=== PATIENT | female | born 1995 | race Caucasian/White ===

== ENCOUNTER 2021-03-15 18:45 | Emergency (ER) | payer SELFPAY ==
[2021-03-15 18:47] VITALS: BP 131/85; PULSE 108; RESP 16; TEMP 36.7; O2SAT 98; BMI 39.3
--- NOTE | 2021-03-15 19:41 | US_ITS ---
STUDY: SECOND AND THIRD TRIMESTER OBSTETRICAL ULTRASOUND - LIMITED REASON FOR EXAM: Female, 25 years old. Pelvic pain PRIOR ULTRASOUND: None. TECHNIQUE: Transvaginal TECHNICAL QUALITY: Adequate. FINDINGS: There is a single intrauterine fetus. The fetus is in a cephalic presentation. There is demonstrated cardiac activity with a heart rate of 161 bpm. There is a normal amniotic fluid volume. The largest amniotic fluid pocket measures 4.5 cm. The placenta is anterior in location and is not low lying. There are Grade 0 placental changes. The cervix measures cm in length: 3.1. Right ovary measures 2.6 cm. Left ovary measures 2.6 cm. Vascular flow visualized in both ovaries. BIOMETRY: BPD: 22 mm: 13 weeks, 4 days HC: 85 mm: 13 weeks, 4 days AC: 66 mm: 13 weeks, 3 days FL: 10 mm: 13 weeks, 0 days CI: NA FL/AC: 15 FL/BPD: 48 HC/AC: 1.27 age by current US: 13 weeks, 2 days. LUPIS by current US: 6.6.22. Estimated weight: 71 grams, +/- 11 grams, 22 %. Age by LMP: 13 weeks, 2 days. LUPIS by LMP: 6.6.22. US/Transvaginal w/Preg US IMPRESSION: There is a single live intrauterine with a heart rate of 161 bpm. age by current US: 13 weeks, 2 days. LUPIS by current US: 6.6.22. Estimated weight: 71 grams, +/- 11 grams, 22 %. Electronically Signed: Celso Carey MD at 21:10 EST , Service support ,
--- NOTE | 2021-03-15 19:43 | EDS_ITS ---
HPI HPI - Female History of Present Illness Chief Complaint: Vag Bld, Preg Narrative Narrative: 25-year-old female G2, P1, A0 currently 17 weeks presenting with vaginal bleeding which started a couple of hours ago. She does complain of left sided pelvic pain. Patient states that she recently moved from [place] and arrived here 2 days ago. She has not established with an ASSISTANT PROFESSOR OF GEOGRAPHY. Patient did have a confirmed intrauterine that she reports about a week ago. She had not had any vaginal bleeding since then. She does not know her blood type. She states that her last went to term she had no complications with exception of hyperemesis gravidarum during . She states she has had some nausea and vomiting the last few days. She denies other medical problems. PFSH PFSH Medical History no medical history Home Medications cephalexin 500 mg PO Q12 3 Days #6 capsule 03/15/21 [Rx Last Taken Unknown] promethazine 12.5 mg PO TID PRN #10 tablet 03/15/21 [Rx Last Taken Unknown] Allergy/AdvReac Type Severity Reaction Status Date / Time mushroom Allergy Anaphylaxis Verified 03/15/21 18:47 Surgical History no surgical history Social History Smoking Status: Never smoker ROS ROS ED Constitutional Constitutional ED: Denies fever(s) or subjective Eyes Eyes: Denies blurry vision or change in vision ENT ENT ED: Denies rhinorrhea or sore throat Cardiovascular Cardiovascular: Denies chest pain or palpitations Respiratory/Chest Respiratory/Chest: Denies cough or dyspnea Gastrointestinal Gastrointestinal: Reports nausea and vomiting EXAM Physical Exam Const Vital Signs: 03/15/21 18:47 Temperature 98.1 F Temperature Source Temporal Pulse Rate 108 H Respiratory Rate 16 Blood Pressure 131/85 H Blood Pressure Mean 100 Pulse Ox 98 Oxygen Delivery Method Room Air Positive well nourished General Appearance ED: NAD; Negative for pallor HEENT Reports moist mucous membranes Negative for trauma Eyes PERRL and EOMs intact bilaterally Resp normal respiratory effort and clear to auscultation bilaterally Cardio regular rate and regular rhythm GI normal to inspection, nondistended, normoactive bowel sounds Neuro oriented x3 and CN's II-XII intact bilaterally Sensorium / Orientation: alert Psych mental status grossly normal Skin General Skin Exam: Negative for jaundice or pallor MDM MDM MDM Narrative Medical decision making narrative: Patient presenting with some nausea and vomiting however she is complaining of left adnexal pain. She is currently 13 weeks and [place] here 2 days ago she has no OB locally. She did have some vaginal bleeding today. Patient states that Zofran and Reglan do not work. She was given Phenergan and this did help with her nausea. Blood work was obtained and her CBC and CMP are normal with exception of an alkaline phosphatase of 120 without any previous comparison. hCG quant is 43,193. Blood type AB+. Urinalysis shows 500 leukocyte esterase, 10-25 white blood cells, 1+ bacteria. Culture will be sent patient will be covered for UTI. Transvaginal ultrasound is performed which shows a live intrauterine fetus at about 13 weeks 2 days in which is consistent with the patient's history. heart rate is 161. Since patient does not require RhoGam I will discharge her home to follow-up with Dr. Rene who is actually on-call today. She is given Phenergan for home at her request. She was given Keflex for UTI with first dose in the ED. Impression: 1. Threatened miscarriage 2. Nausea/vomiting 3. UTI Lab Data Attestation: I reviewed the patient's lab results. Labs: Laboratory Results - last 24 hr 03/15/21 03/15/21 03/15/21 20:05 20:05 20:05 WBC 10.8 RBC 4.37 Hgb 13.1 Hct 39.0 MCV 89.2 MCH 30.0 MCHC 33.6 RDW Std Deviation 42.5 RDW Coeff of Irena 13.1 Plt Count 289 MPV 10.0 Immature Gran % (Auto) 0.300 Neut % (Auto) 78.3 H Lymph % (Auto) 16.7 L [place] % (Auto) 4.5 Eos % (Auto) 0.1 Baso % (Auto) 0.1 Absolute Neuts (auto) 8.5 H Absolute Lymphs (auto) 1.81 Nucleated RBC % 0 Sodium 136 Potassium 3.4 L Chloride 102 Carbon Dioxide 23.0 Anion Gap 11 BUN 8 Creatinine 0.78 Estim Creat Clear Calc 91.21 Est GFR (MDRD) Af Amer 114 Est GFR (MDRD) Non-Af 95 BUN/Creatinine Ratio 10.2 Glucose 88 Calcium 9.6 Total Bilirubin 0.50 AST 28 ALT 52 Alkaline Phosphatase 120 H Total Protein 8.2 Albumin 3.3 Globulin 4.9 H Albumin/Globulin Ratio 0.7 L HCG, Quant 62626 H Urine Color Urine Clarity Urine pH Ur Specific [place] Urine Protein Urine Glucose (UA) Urine Ketones Urine Occult Blood Urine Nitrite Urine Bilirubin Urine Urobilinogen Ur Leukocyte Esterase Urine RBC Urine WBC Ur Squamous Epith Cells Urine Bacteria Urine Mucus Blood Type 03/15/21 03/15/21 03/15/21 20:05 20:05 20:49 WBC RBC Hgb Hct MCV MCH MCHC RDW Std Deviation RDW Coeff of Irena Plt Count MPV Immature Gran % (Auto) Neut % (Auto) Lymph % (Auto) [place] % (Auto) Eos % (Auto) Baso % (Auto) Absolute Neuts (auto) Absolute Lymphs (auto) Nucleated RBC % Sodium Potassium Chloride Carbon Dioxide Anion Gap BUN Creatinine Estim Creat Clear Calc Est GFR (MDRD) Af Amer Est GFR (MDRD) Non-Af BUN/Creatinine Ratio Glucose Calcium Total Bilirubin AST ALT Alkaline Phosphatase Total Protein Albumin Globulin Albumin/Globulin Ratio HCG, Quant Urine Color Yellow Urine Clarity Sl. Cloudy Urine pH 6.0 Ur Specific [place] 1.025 Urine Protein 15 H Urine Glucose (UA) Normal Urine Ketones 150 A* Urine Occult Blood Negative Urine Nitrite Negative Urine Bilirubin 1 H Urine Urobilinogen 1 H Ur Leukocyte Esterase 500 H Urine RBC 0 SEEN Urine WBC 10-25 SEEN Ur Squamous Epith Cells 0-5 SEEN Urine Bacteria 1+ Urine Mucus 0 SEEN Blood Type TNP AB POSITIVE Radiography Diagnostic Testing: Clinical Impression(s) from Imaging Studies Obstetrics Ultrasound 03/15/21 19:41 IMPRESSION: There is a single live intrauterine with a heart rate of 161 bpm. age by current US: 13 weeks, 2 days. LUPIS by current US: 6.6.22. Estimated weight: 71 grams, +/- 11 grams, 22 %. Electronically Signed: Celso Carey MD at 21:10 EST , Service support , Discharge Plan Triage Chief Complaint: Vag Bld, Preg ED Provider: Olayinka Finnegan Dx/Rx/DC Orders Instructions: ED Possible Miscarriage ..., ED CYSTITIS Female Adult Prescriptions: New promethazine 25 mg tablet 12.5 mg PO TID PRN (Reason: nausea and vomiting) Qty: 10 RF: 0 cephalexin 500 mg capsule 500 mg PO Q12 3 Days Qty: 6 RF: 0 Primary Care Provider: Care Physician,No Primary Referrals: Juno Espitia MD [STAFF PHYSICIAN] - As soon as possible Care Physician,No Primary [Primary Care Provider] - Disposition Disposition: Home, Self Care
[2021-03-15] MEDS: proMETHazine 25 MG/ML Syringe 12.5 MG IM (20:11)
[2021-03-15 20:15] LABS: Absolute Lymphocyte Count 1.81 X10^3/uL (0.83-4.51); Absolute Neutrophil Count 8.5 X10^3/uL (2.0-7.7); Basophil# 0.01 X10^3/uL; Basophil% 0.1 % (0-1); Eosinophil# 0.01 X10^3/uL; Eosinophils% 0.1 % (0-5); Hemoglobin 13.1 g/dL (12.0-15.0); Lymphocyte # 1.81 X10^3/ul (0.83-4.51); Lymphocyte % 16.7 % (19-41); Mean Corp Hgb Conc 33.6 g/dL (32-36); Mean Corpuscular Volume 89.2 fL (81-99); Monocyte# 0.49 X10^3/uL; Monocyte% 4.5 % (0-10); NRBC Flagged by Analyzer 0 % (0-5); Neutrophil # 8.46 X10^3/uL (2.7-7.7); Neutrophil % 78.3 % (47-70); Platelet Count 289 K/mm3 (150-450); RBC Distribution Width CV 13.1 % (11.6-14.6); RBC Distribution Width SD 42.5 fl (35.1-43.9); Red Blood Count 4.37 M/mm3 (4.2-5.4); White Blood Count 10.8 K/mm3 (4.4-11.0)
[2021-03-15 20:32] LABS: ALB/GLOB Ratio 0.7 RATIO (0.9-2.4); AST(SGOT) 28 U/L (15-37); Alanine Aminotransfer ALT/SGPT 52 U/L (13-56); Albumin, Serum 3.3 g/dL (3.2-5.0); Alkaline Phosphatase 120 U/L (45-117); Anion Gap 11 (5-15); BUN 8 mg/dL (7-18); BUN/Creat Ratio 10.2 RATIO (10-20); Calcium,Total 9.6 mg/dL (8.5-10.1); Chloride 102 mmol/L (98-107); Creatinine, Serum 0.78 mg/dL (0.55-1.02); EST Glomerular Filtration Rate 95 mL/min (>60); Est Glom Filt Rate - Afr Amer 114 mL/min (>60); Estimated Creatinine Clearance 91.21 ml/min; Globulin 4.9 g/dL (2.2-4.2); Glucose 88 mg/dL (74-106); Potassium 3.4 mmol/L (3.5-5.1); Protein, Total 8.2 g/dL (6.4-8.2); Sodium Level 136 mmol/L (136-145)
[2021-03-15 20:47] LABS: hCG Titer Quant., Serum 43193 mIU/mL (1-3)
[2021-03-15 20:58] LABS: Color, Urine Yellow (Yellow); Glucose, Dipstick Normal (Normal); Leukocyte Esterase-Dipstick 500 /ul (Negative); Mucous, Urine 0 SEEN /hpf (<or=2+); Nitrite-Dipstick Negative (Negative); Occult Blood-Urine Negative /ul (Negative); Protein-Dipstick 15 mg/dl (Negative); Specific Gravity, Urine 1.025 (1.002-1.030); Urine Clarity Sl. Cloudy (Clear); Urine Urobilinogen 1 mg/dl (Normal)
[2021-03-15 20:59] LABS: Urine Bilirubin Dipstick 1 mg/dL (Negative)
[2021-03-15 21:00] LABS: Ketone-Dipstick 150 mg/dl (Negative)
[2021-03-15 21:03] LABS: Squamous Epithelial Cells - UA 0-5 SEEN /hpf (5-10); White Blood Cells 10-25 SEEN /hpf (0-5)
[2021-03-15 21:04] LABS: Red Blood Cells-Urine 0 SEEN /hpf (0-5)
[2021-03-15 21:05] LABS: Bacteria 1+ /hpf (None Seen)
[2021-03-15 22:06] VITALS: BP 117/67; PULSE 70; RESP 16; O2SAT 100
== END 2021-03-15 22:06 | disposition home or self-care (01) ==
PROVIDERS: Emergency Provider Student in an Organized Health Care Education/Training Program
DX: O20.0 Threatened abortion (principal); O21.9 Vomiting of pregnancy, unspecified; O23.42 Unspecified infection of urinary tract in pregnancy, second trimester; Z3A.17 17 weeks gestation of pregnancy
CPT/HCPCS: 76817; 80053; 81001; 84702; 85025; 86900; 86901; 96372; 99283; A4216

== ENCOUNTER 2021-03-17 14:24 | Emergency (ER) | payer SELFPAY ==
[2021-03-17 14:25] VITALS: BP 147/95; PULSE 94; RESP 18; TEMP 36.4; O2SAT 100; BMI 38.9
--- NOTE | 2021-03-17 15:33 | CM.ED ---
Addendum entered by Judith Morales 03/17/21 15:56: Patient reports that she is from [place]. Patient was provided with self pay packet. Patient was provided with 2020 List of Healthcare Provider Directory and encouraged her to apply for [place] medicaid. Patient verbalized understanding. Judith AGUILAR Original Note: ARTIE Note Referral Source: Case Find Referral Reason: No PCP and no insurance SW met with patient. She reports she moved to the area a few days ago
--- NOTE | 2021-03-17 16:13 | US_ITS ---
STUDY: SECOND AND THIRD TRIMESTER OBSTETRICAL ULTRASOUND - LIMITED REASON FOR EXAM: Female, 25 years old. left pelvic pain PRIOR ULTRASOUND: .05.05 TECHNIQUE: Transabdominal TECHNICAL QUALITY: Adequate. FINDINGS: There is a single intrauterine fetus. The fetus is in a breech presentation. There is demonstrated cardiac activity with a heart rate of 158 bpm. There is a normal amniotic fluid volume. This is subjective before. The placenta is anterior and low lying but not previa in location. There are Grade 0 placental changes. The cervix measures cm in length: 3.3. Ovaries are visualized and within normal limits. Left corpus luteum cyst visualized measuring 19 x 17 mm. BIOMETRY: BPD: 23 mm: 13 weeks, 5 days HC: 89 mm: 13 weeks, 6 days AC: 71 mm: 13 weeks, 4 days FL: 10 mm: 13 weeks, 0 days CI: 76 FL/AC: 14 FL/BPD: 44 HC/AC: 1.25 age by current US: 13 weeks, 3 days. LUPIS by current US: 6.7.22. Estimated weight: 74 grams, +/- 11 grams, 18 %. age by prior US: 13 weeks, 4 days. LUPIS by prior US: 6.6.22. Age by LMP: 13 weeks, 4 days. LUPIS by LMP: 6.6.22. US/Init OB < 14Wks US IMPRESSION: There is a single live intrauterine with a heart rate of 158 bpm. The placenta is anterior and low lying but not previa in location. age by current US: 13 weeks, 3 days. LUPIS by current US: 6.7.22. Estimated weight: 74 grams, +/- 11 grams, 18 %. Electronically Signed: Celso Carey MD at 20:55 EST , Service support ,
--- NOTE | 2021-03-17 16:19 | EDS_ITS ---
HPI HPI - GI History of Present Illness Chief Complaint: Nausea/Vomiting Narrative Narrative: 25-year-old female G2, who is currently in her 13th week of presenting for left pelvic pain. Patient was seen in the ER 2 days ago and had an ultrasound done transvaginally. Which showed a normal fetus at 13 weeks. Patient recently moved from [place] and does not have an chef broiler or fry. 2 days ago she presented with vaginal bleeding which is now resolved. She does not have any dysuria or hematuria. She has no constipation or diarrhea. She states she had a fever yesterday of 101 ?F which spontaneously resolved. She has Phenergan at home which has helped her with her nausea. She has not yet called for follow-up with Dr. Espitia who she was referred to. She states that she experienced a lot of nausea and vomiting with her first pregnan cy. She states that Zofran and Reglan did not help her with her vomiting. PFSH PFSH Medical History no medical history Home Medications cephalexin 500 mg PO Q12 3 Days #6 capsule 03/15/21 [Rx Last Taken Unknown] promethazine 12.5 mg PO TID PRN #10 tablet 03/15/21 [Rx Last Taken Unknown] ondansetron HCl [Zofran] 4 mg PO Q8H PRN #14 tab 03/17/21 [Rx Last Taken Unknown] Allergy/AdvReac Type Severity Reaction Status Date / Time mushroom Allergy Anaphylaxis Verified 03/17/21 14:27 Surgical History no surgical history Social History Smoking Status: Never smoker ROS ROS ED Constitutional Constitutional ED: Reports fever(s); Denies chills ENT ENT ED: Denies rhinorrhea or sore throat Cardiovascular Cardiovascular: Denies chest pain or palpitations Respiratory/Chest Respiratory/Chest: Denies cough or dyspnea Gastrointestinal Gastrointestinal: Reports abdominal pain, nausea and vomiting; Denies constipation or diarrhea Genitourinary Genitourinary ED: Denies dysuria or hematuria Musculoskeletal Musculoskeletal: Denies arthralgias or myalgias Integumentary Denies rash Neurologic Neurologic: Denies headache(s) or paresthesias EXAM Physical Exam Const Vital Signs: 03/17/21 14:25 03/17/21 16:37 03/17/21 18:16 Temperature 97.5 F L Temperature Source Temporal Pulse Rate 94 96 96 Respiratory Rate 18 16 16 Blood Pressure 147/95 H 136/80 H 126/91 H Blood Pressure Mean 112 98 102 Pulse Ox 100 98 99 Oxygen Delivery Method Room Air Room Air Room Air 03/17/21 20:16 Temperature Temperature Source Pulse Rate 90 Respiratory Rate 18 Blood Pressure 124/61 H Blood Pressure Mean Pulse Ox 96 Oxygen Delivery Method Positive well nourished General Appearance ED: NAD; Negative for pallor HEENT Reports moist mucous membranes normocephalic and atraumatic Eyes PERRL and EOMs intact bilaterally Cardio regular rate and regular rhythm GI GI Narrative: Tenderness palpation left lower abdomen/pelvis. Abdomen is soft. Gravid. Back/Spine no CVA tenderness Neuro CN's II-XII intact bilaterally Sensorium / Orientation: alert, oriented to person, oriented to place and oriented to time Psych mental status grossly normal and thought process normal Skin General Skin Exam: Negative for jaundice or pallor MDM MDM MDM Narrative Medical decision making narrative: Patient given Tylenol for pain because she is . CBC shows no leukocytosis. CMP shows a slight increase in alkaline phosphatase and ALT. Her hCG is actually gone down to 42,196 from 42,193. Urinalysis does not show bacteria although she has 500 leukocyte esterase. I recently treated her with Keflex p.o. twice daily for bacteria in the urine. Transvaginal ultrasound does shows a live intrauterine with gestational age of 13 weeks 3 days. heart rate is 158. Patient given a prescription for Zofran for home at her request. She already has Phenergan. Again she is encouraged to follow-up with an chef broiler or fry. Patient is discharged home in stable condition. Impression: 1. Hyperemesis gravidarum 2. Abdominal pain Lab Data Labs: Laboratory Results - last 24 hr 03/17/21 03/17/21 03/17/21 15:24 15:24 15:24 WBC 8.6 RBC 4.33 Hgb 13.0 Hct 39.2 MCV 90.5 MCH 30.0 MCHC 33.2 RDW Std Deviation 43.2 RDW Coeff of Irena 13.1 Plt Count 282 MPV 10.8 Immature Gran % (Auto) 0.300 Neut % (Auto) 80.2 H Lymph % (Auto) 14.2 L [place] % (Auto) 4.9 Eos % (Auto) 0.2 Baso % (Auto) 0.2 Absolute Neuts (auto) 6.9 Absolute Lymphs (auto) 1.22 Nucleated RBC % 0 Sodium 135 L Potassium 3.6 Chloride 103 Carbon Dioxide 26.0 Anion Gap 6 BUN 9 Creatinine 0.82 Estim Creat Clear Calc 86.76 Est GFR (MDRD) Af Amer 108 Est GFR (MDRD) Non-Af 89 BUN/Creatinine Ratio 10.9 Glucose 94 Calcium 9.4 Total Bilirubin 0.40 AST 33 ALT 60 H Alkaline Phosphatase 119 H Total Protein 8.1 Albumin 3.2 Globulin 4.9 H Albumin/Globulin Ratio 0.7 L HCG, Quant 22730 H Urine Color Urine Clarity Urine pH Ur Specific [place] Urine Protein Urine Glucose (UA) Urine Ketones Urine Occult Blood Urine Nitrite Urine Bilirubin Urine Urobilinogen Ur Leukocyte Esterase Urine RBC Urine WBC Ur Squamous Epith Cells Urine Bacteria Urine Mucus 03/17/21 18:17 WBC RBC Hgb Hct MCV MCH MCHC RDW Std Deviation RDW Coeff of Irena Plt Count MPV Immature Gran % (Auto) Neut % (Auto) Lymph % (Auto) [place] % (Auto) Eos % (Auto) Baso % (Auto) Absolute Neuts (auto) Absolute Lymphs (auto) Nucleated RBC % Sodium Potassium Chloride Carbon Dioxide Anion Gap BUN Creatinine Estim Creat Clear Calc Est GFR (MDRD) Af Amer Est GFR (MDRD) Non-Af BUN/Creatinine Ratio Glucose Calcium Total Bilirubin AST ALT Alkaline Phosphatase Total Protein Albumin Globulin Albumin/Globulin Ratio HCG, Quant Urine Color Yellow Urine Clarity Sl. Cloudy Urine pH 6.0 Ur Specific [place] 1.025 Urine Protein 30 H Urine Glucose (UA) Normal Urine Ketones 150 A* Urine Occult Blood 10 H Urine Nitrite Negative Urine Bilirubin Negative Urine Urobilinogen 1 H Ur Leukocyte Esterase 500 H Urine RBC 0 SEEN Urine WBC 25-50 SEEN Ur Squamous Epith Cells 5-10 SEEN Urine Bacteria 0 SEEN Urine Mucus 3+ Radiography Diagnostic Testing: Clinical Impression(s) from Imaging Studies Obstetrics Ultrasound 03/17/21 16:13 IMPRESSION: There is a single live intrauterine with a heart rate of 158 bpm. The placenta is anterior and low lying but not previa in location. age by current US: 13 weeks, 3 days. LUPIS by current US: 6.7.22. Estimated weight: 74 grams, +/- 11 grams, 18 %. Electronically Signed: Celso Carey MD at 20:55 EST , Service support , Discharge Plan Triage Chief Complaint: Nausea/Vomiting ED Provider: Olayinka Finnegan Dx/Rx/DC Orders Instructions: ED Hyperemesis Gravidarum Prescriptions: New ondansetron HCl [Zofran] 4 mg tablet 4 mg PO Q8H PRN (Reason: nausea and vomiting) Qty: 14 RF: 0 No Action promethazine 25 mg tablet 12.5 mg PO TID PRN (Reason: nausea and vomiting) Qty: 10 RF: 0 cephalexin 500 mg capsule 500 mg PO Q12 3 Days Qty: 6 RF: 0 Primary Care Provider: Care Physician,No Primary Referrals: Juno Espitia MD [STAFF PHYSICIAN] - As soon as possible Care Physician,No Primary [Primary Care Provider] - Disposition Disposition: Home, Self Care Discharge Date/Time: 03/17/21 20:16
[2021-03-17] MEDS: proMETHazine 25 MG/ML Syringe 12.5 MG IM (16:28)
[2021-03-17] MEDS: 0.9% Normal Saline 1,000 ML 1000 ML IV (16:28)
[2021-03-17 16:37] VITALS: BP 136/80; PULSE 96; RESP 16; O2SAT 98
[2021-03-17 16:44] LABS: Absolute Lymphocyte Count 1.22 X10^3/uL (0.83-4.51); Absolute Neutrophil Count 6.9 X10^3/uL (2.0-7.7); Basophil# 0.02 X10^3/uL; Basophil% 0.2 % (0-1); Eosinophil# 0.02 X10^3/uL; Eosinophils% 0.2 % (0-5); Hematocrit 39.2 % (37-47); Lymphocyte # 1.22 X10^3/ul (0.83-4.51); Lymphocyte % 14.2 % (19-41); Mean Corp Hgb Conc 33.2 g/dL (32-36); Mean Corpuscular Volume 90.5 fL (81-99); Mean Platelet Vol. 10.8 fl (6.2-12.0); Monocyte# 0.42 X10^3/uL; Monocyte% 4.9 % (0-10); NRBC Flagged by Analyzer 0 % (0-5); Neutrophil # 6.88 X10^3/uL (2.7-7.7); Neutrophil % 80.2 % (47-70); Platelet Count 282 K/mm3 (150-450); RBC Distribution Width CV 13.1 % (11.6-14.6); RBC Distribution Width SD 43.2 fl (35.1-43.9); Red Blood Count 4.33 M/mm3 (4.2-5.4); White Blood Count 8.6 K/mm3 (4.4-11.0)
[2021-03-17 17:02] LABS: ALB/GLOB Ratio 0.7 RATIO (0.9-2.4); AST(SGOT) 33 U/L (15-37); Alanine Aminotransfer ALT/SGPT 60 U/L (13-56); Albumin, Serum 3.2 g/dL (3.2-5.0); Alkaline Phosphatase 119 U/L (45-117); Anion Gap 6 (5-15); BUN 9 mg/dL (7-18); BUN/Creat Ratio 10.9 RATIO (10-20); Calcium,Total 9.4 mg/dL (8.5-10.1); Chloride 103 mmol/L (98-107); Creatinine, Serum 0.82 mg/dL (0.55-1.02); EST Glomerular Filtration Rate 89 mL/min (>60); Est Glom Filt Rate - Afr Amer 108 mL/min (>60); Estimated Creatinine Clearance 86.76 ml/min; Globulin 4.9 g/dL (2.2-4.2); Glucose 94 mg/dL (74-106); Potassium 3.6 mmol/L (3.5-5.1); Protein, Total 8.1 g/dL (6.4-8.2); Sodium Level 135 mmol/L (136-145)
[2021-03-17] MEDS: Ondansetron 4 MG/2 ML Vial IV (17:15)
--- NOTE | 2021-03-17 17:19 | ED.RN ---
PT CONTINUES VOMITING AFTER PHENERGAN DOSE. DR. GUAN INFORMED.
[2021-03-17 17:37] LABS: hCG Titer Quant., Serum 42186 mIU/mL (1-3)
[2021-03-17 18:16] VITALS: BP 126/91; PULSE 96; RESP 16; O2SAT 99
[2021-03-17 18:23] LABS: Bacteria 0 SEEN /hpf (None Seen); Red Blood Cells-Urine 0 SEEN /hpf (0-5)
[2021-03-17 18:24] LABS: Color, Urine Yellow (Yellow); Glucose, Dipstick Normal (Normal); Leukocyte Esterase-Dipstick 500 /ul (Negative); Nitrite-Dipstick Negative (Negative); Occult Blood-Urine 10 /ul (Negative); Protein-Dipstick 30 mg/dl (Negative); Specific Gravity, Urine 1.025 (1.002-1.030); Urine Bilirubin Dipstick Negative (Negative); Urine Clarity Sl. Cloudy (Clear); Urine Urobilinogen 1 mg/dl (Normal)
[2021-03-17 18:27] LABS: Ketone-Dipstick 150 mg/dl (Negative)
[2021-03-17 18:29] LABS: White Blood Cells 25-50 SEEN /hpf (0-5)
[2021-03-17 18:30] LABS: Mucous, Urine 3+ /hpf (<or=2+); Squamous Epithelial Cells - UA 5-10 SEEN /hpf (5-10)
--- NOTE | 2021-03-17 18:33 | ED.RN ---
PT C/O BACK PAIN, DR. GUAN AWARE. PT UNABLE TO TOLERATE ORAL MEDS AT THIS TIME. CONTINUED N/V. PT GIVEN WARM BLANKETS, PLACED IN POSITION OF COMFORT AND LIGHTING WAS ADJUSTED PER PT REQUEST.
[2021-03-17 20:16] VITALS: BP 124/61; PULSE 90; RESP 18; O2SAT 96
== END 2021-03-17 20:16 | disposition home or self-care (01) ==
PROVIDERS: Emergency Provider Student in an Organized Health Care Education/Training Program
DX: O21.0 Mild hyperemesis gravidarum (principal); O26.891 Other specified pregnancy related conditions, first trimester; Z3A.13 13 weeks gestation of pregnancy
CPT/HCPCS: 76801; 80053; 81001; 84702; 85025; 96372; 96374; 99282; J7030; A4216; J2405

== ENCOUNTER 2021-03-17 23:35 | Emergency (ER) | payer SELFPAY ==
[2021-03-17 23:43] VITALS: BP 124/82; PULSE 107; RESP 16; TEMP 36.3; O2SAT 99; BMI 38.9
[2021-03-17] MEDS: Ondansetron ODT 4 MG Tablet PO (23:53)
--- NOTE | 2021-03-18 00:11 | ED.RN ---
PT WAS GIVEN ODT ZOFRAN VERBALLY ORDERED BY [facility]. WENT OVER PREVIOUS DC INSTRUCTIONS WITH PT FROM A FEW HRS AGO. PTS S.O. STATED THEY WERE GOING HOIME AND GOING TO TRY TO GET IN WITH OB IN THE MORNING.
== END 2021-03-18 00:11 | disposition left against medical advice (07) ==
LOC: ED 03-18 00:13
DX: Z53.21 Procedure and treatment not carried out due to patient leaving prior to being seen by health care provider (principal)
CPT/HCPCS: 99282

== ENCOUNTER → 2021-03-20 13:14 | Outpatient (CLI) | payer SELFPAY ==
[2021-03-20 13:19] VITALS: BP 122/69; PULSE 84; RESP 18; TEMP 35.8; O2SAT 100
[2021-03-20] MEDS: 0.9% NaCl Peripheral Flush Adult/Peds IV (13:51)
[2021-03-20] MEDS: Ondansetron 4 MG/2 ML Vial IV (13:51)
[2021-03-20] MEDS: proMETHazine 25 MG/ML Syringe 12.5 MG IM (13:53)
[2021-03-20] MEDS: Dextrose 5%-Lactated Ringers 1,000 ML 999 ML IV (13:57)
[2021-03-20 15:09] VITALS: PULSE 106; RESP 18; TEMP 36; O2SAT 100
== END ==
PROVIDERS: Referring Provider Obstetrics & Gynecology; Visit Provider Obstetrics & Gynecology
DX: E86.0 Dehydration (principal)
CPT/HCPCS: 96361; 96374; 96372; A4216; J2405

== ENCOUNTER 2021-03-21 16:51 | Observation (INO) | payer SELFPAY ==
[2021-03-21] VITALS (7 sets, daily range): BP systolic 119–183; BP diastolic 59–85; PULSE 73–146; TEMP 37–37.2; O2SAT 96–98; BMI 38.9
--- NOTE | 2021-03-21 16:51 | HP.PCM_ITS ---
History and Physical Date of Admission: 03/21/21 Vital Signs 03/21/21 16:04 Height 5 ft 3 in Weight: 220 lb BMI 38.9 BP 122/84 H Intake Visit Reasons: DANIEL OB Chief Complaint: OB transfer 14w Eating Disorder Psychologist Required: No Is patient in pain?: Yes Allergies mushroom Allergy (Verified 03/17/21 14:27) Anaphylaxis Last Menstral Period: 12/12/20 : No PFSH PFSH Family History (Updated 03/21/21 @ 16:12 by Mone Hawkins) Mother Cancer Grandmother Cancer Social History (Updated 03/21/21 @ 16:12 by Mone Hawkins) Smoking Status: Never smoker alcohol intake: never substance use type: does not use caffeine: No what type of physical activity do you participate in: none seatbelt use: always do you feel safe at home: Yes additional social history: Dylon Pregancy History 2 Elective abortions Hx Para 1 Spontaneous abortions Hx # Term Pregnancies Ectopic pregnancies Hx # Pregnancies Multiple births # of living children Past Pregnancies Del. Date Name GA/Weeks Outcome Route Bth Weight Gen Labor Lgth Anesthesia Del [facility] Provider FOB 02/28/17 Hanna 39 live - full term Delivery Date: 02/28/17 hyperemesis gravidarum Janay Suh HPI DANIEL OB Details: BILLY WILSON is a 25 year old who presents for transfer of care OB visit. Patient has moved here from [place] and is establishing care. She did have a new OB visit and her other provider with baseline labs and confirmatory ultrasound consistent with LMP. Patient has a history of hyperemesis gravidarum that was managed last with a Zofran pump. She states that oral medications have not worked this so far and she is really been struggling. She received IV fluids as an outpatient yesterday but is still having persistent emesis and only urinating once daily. She has abdominal cramping due to retching so much and had some spotting a few days ago but nothing acutely. Complains of some shortness of breath that has been present since the onset of and states it gets worse with vomiting. She has decreased urine output but no dysuria. She denies any fevers OB Visit LUPIS Calculator Estimated Delivery Date Method Current WG Current Estimate 09/18/21 LMP (Certain) 14w 1d Expected Delivery Route/Plan Labor Preferences- CB/BF classes: [] labor support person: [] labor intervention preferences: [] pain management options preferred: [] cut cord/dad catch: [] : [] PP control planned: [] discussed possible routes of delivery and associated risks: [] special requests: [] Specific Issue/Plans Covid status: [] Flu vaccine: [] Tdap vaccine: [] Rhogam: [] LARC form signed: [] Problem list reviewed and updated with the most current plan of care details and appropriate orders placed. Relevant counseling for the gestational age provided. Continue routine care and follow up unless otherwise noted in visit notes/problem list details Initial Weight: Not Recorded Date EGA Weight BP Urine Prot Glucose FHR FuHt Pres Dilation Effaced St Visit Note 03/21/21 14w 1d 220 lb 122/84 Direct admit to labor and delivery for IV fluids plan [facility] consult ACOG First Trimester First Trimester: Discussed Diagnostics Diagnostics Diagnostics: Blood Type AB POSITIVE Hgb 13.0 g/dL (12.0-15.0) Hct 39.2 % (37-47) Details: HIV: Urine Culture: Sequential Screen: NIPT Screen: ROS Const Denies excessive sweating, Denies night sweats and Denies weight gain ENT Reports system reviewed and no additional complaints, except as documented Card Denies chest pain and Denies dyspnea Resp Denies cough and Denies dyspnea GI Reports as per HPI Denies nipple discharge, Denies urinary frequency, Denies urinary incontinence, Denies urinary hesitancy, Denies urinary urgency, Denies vaginal discharge, Den ies vaginal dryness, Denies vaginal odor and Denies vaginal pruritus Musc Denies arthralgias and Denies back pain Skin/Breast Denies alopecia, Denies change in hair, Denies dry skin, Denies breast mass, Denies breast pain, Denies breast skin changes and Denies nipple discharge Neuro Yes system reviewed and no additional complaints, except as documented Psych Reports system reviewed and no additional complaints, except as documented Endo Denies cold intolerance, Denies excessive sweating, Denies heat intolerance and Denies polydipsia [place]/Lymph Denies easy bleeding, Denies easy bruising and Denies lymphadenopathy Exam Const General: cooperative, well developed, ill appearing and lethargic Orientation: alert HENMT Head: normal to inspection and normocephalic Ears: hearing grossly normal bilaterally and external ears normal Nose: external nose normal and nares normal Face and sinus: normal facial exam Neck Neck: normal visual inspection and no lymphadenopathy Thyroid: thyroid normal Chest Chest palpation & inspection: normal inspection of the chest Resp Effort & Inspection: normal respiratory effort Auscultation: clear to auscultation bilaterally Cardio Rate: regular rate Rhythm: regular rhythm Heart Sounds: S1 normal and S2 normal GI Inspection: normal to inspection and non-distended Palpation: soft and no hepatosplenomegaly Musc Other: gross motor intact no deficits, full bilateral strength Skin General: no rashes or lesions noted Neuro General: patient alert, patient awake, moves all extremities and no focal motor deficits Motor: muscle tone normal throughout Extrem General: normal to inspection and no pedal edema Psych Appearance: grossly normal Mental Status: mental status grossly normal Affect: normal affect Speech and Movement: speech and movement normal Coding Level of Care Code Off vis,new,level 5 Diagnoses Z34.90 Supervision of high-risk O09.90 Hyperemesis gravidarum O21.0 Obesity affecting O99.210 Assessment and Plan Assessment and Plan (1) : Status: Acute Comment: [place]ANIEL [place] (2) Supervision of high-risk : Status: Acute Comment: LUPIS 09/18/21 Hanna Plan - Dr. Janay Suh MD: Problem list updated and treatment plans were reviewed with the patient and relevant educational handouts given. See problem list details for specific plan information. (3) Hyperemesis gravidarum: Status: Acute Comment: STO IVFs, zofran/phenergan scheduled plus reglan PRN, thiamine (4) Obesity affecting : Status: Acute Plan Details Other Orders: Orders: Influenza A+B (Rapid [facility]ILOU) Today R11.10 COVID 19, PCR [facility](RT COLLECT) Today R11.10
--- NOTE | 2021-03-21 16:59 | US_ITS ---
HISTORY: vaginal bleeding- which has subsided per pt, also has abd pain EXAMINATION: US OB Limited 1 Or More Fetus TECHNIQUE: Transabdominal pelvic obstetric ultrasound was performed. Grayscale, spectral waveform, and color flow Doppler evaluation of the adnexa. COMPARISON: Pelvic ultrasound from 03/17/21 FINDINGS: Uterus measures 15.6 x 15.8 x 9.9 cm. Closed cervix 3 cm in length. Single live intrauterine fetus in cephalic presentation with heart rate 160 BPM. Grade 0 anterior placenta with no placenta previa. Amniotic fluid volume within normal limits, largest pocket measuring 5.5 x 2.5 cm. Maternal adnexa imaged, with right ovary not visualized. Left ovary measures 4 x 1.6 x 2.4 cm with small, hypoechoic 1.6 cm corpus luteum cyst. anatomic survey is not performed. Estimated gestational age of 14 weeks 2 days based on biometrics with LUPIS of 09/17/21. age by LMP is 14 weeks 1 day with LUPIS of 09/18/21. Estimated weight 93 g +/- 14 g, 41st percentile. Measurements: BPD 2.63 cm, 14 weeks 4 days HC 9.79 cm, 14 weeks 3 days AC 7.54 cm, 14 weeks 0 days FL 1.52 cm, 14 weeks 3 days US/OB Limited With Biometrics IMPRESSION: Single live intrauterine with no acute abnormality. EGA by today's ultrasound is 14 weeks 2 days, concurrent with clinical age of 14 weeks 1 day. at 2320 Reported and signed by: David Collado MD Electronically Signed: David Collado MD at 23:18 EST Tel , Service support ,
[2021-03-21] MEDS: Dextrose 5%-Lactated Ringers 1,000 ML 999 ML IV (17:26)
[2021-03-21] MEDS: proMETHazine 25 MG/ML Syringe 12.5 MG IM ×2 (17:27→21:12)
[2021-03-21] MEDS: Ondansetron 4 MG/2 ML Vial IV ×2 (17:27→21:13)
[2021-03-21] MEDS: fentaNYL 100 MCG/2 ML Ampul 25 MCG IV (17:53)
[2021-03-21] MEDS: Lactated Ringers 1,000 ML 999 ML IV (18:00)
[2021-03-21 18:28] LABS: Absolute Lymphocyte Count 1.67 X10^3/uL (0.83-4.51); Absolute Neutrophil Count 7.7 X10^3/uL (2.0-7.7); Basophil# 0.01 X10^3/uL; Basophil% 0.1 % (0-1); Eosinophil# 0.03 X10^3/uL; Eosinophils% 0.3 % (0-5); Lymphocyte # 1.67 X10^3/ul (0.83-4.51); Lymphocyte % 16.8 % (19-41); Mean Corp Hgb Conc 33.3 g/dL (32-36); Mean Corpuscular Volume 89.9 fL (81-99); Mean Platelet Vol. 10.5 fl (6.2-12.0); NRBC Flagged by Analyzer 0 % (0-5); Neutrophil # 7.73 X10^3/uL (2.7-7.7); Neutrophil % 77.6 % (47-70); Platelet Count 231 K/mm3 (150-450); RBC Distribution Width CV 13.3 % (11.6-14.6); RBC Distribution Width SD 43.8 fl (35.1-43.9); Red Blood Count 3.67 M/mm3 (4.2-5.4)
[2021-03-21 18:36] LABS: ALB/GLOB Ratio 0.6 RATIO (0.9-2.4); AST(SGOT) 93 U/L (15-37); Alanine Aminotransfer ALT/SGPT 177 U/L (13-56); Albumin, Serum 2.6 g/dL (3.2-5.0); Alkaline Phosphatase 92 U/L (45-117); Anion Gap 10 (5-15); BUN 7 mg/dL (7-18); BUN/Creat Ratio 8.9 RATIO (10-20); Calcium,Total 8.7 mg/dL (8.5-10.1); Chloride 101 mmol/L (98-107); Creatinine, Serum 0.79 mg/dL (0.55-1.02); EST Glomerular Filtration Rate 94 mL/min (>60); Est Glom Filt Rate - Afr Amer 114 mL/min (>60); Estimated Creatinine Clearance 90.05 ml/min; Glucose 167 mg/dL (74-106); Potassium 2.8 mmol/L (3.5-5.1); Protein, Total 6.6 g/dL (6.4-8.2); Sodium Level 137 mmol/L (136-145); Thyroid Stim Hormone (TSH) 0.61 uIU/mL (0.358-3.74)
[2021-03-21 18:49] LABS: Amphetamine Urine VISTA NEGATIVE (<1000 ng/mL); Barbiturate Urine VISTA NEGATIVE (< 200 ng/mL); Benzodiazepine Urine VISTA NEGATIVE (< 200 ng/mL); Cocaine Urine VISTA NEGATIVE (< 300 ng/mL); Ecstacy Urine VISTA NEGATIVE (< 500 ng/mL); Methadone Urine VISTA NEGATIVE (< 300 ng/mL); PCP Urine VISTA NEGATIVE (< 25 ng/mL); THC Urine VISTA POSITIVE (< 50 ng/mL); Vista UDS pH Range 7
[2021-03-21 18:53] LABS: Hemoglobin A1c 5.1 % (3.8-5.6)
[2021-03-21] MEDS: Potassium Chloride 40 MEQ in Dext 5%-0.45% NS 1,000 ML 175 MEQ IV (19:37)
[2021-03-21] MEDS: DiphenhydrAMINE 50 MG/ML Syringe 25 MG IV (20:45)
[2021-03-21] MEDS: HYDROmorphone 1 MG/ML Syringe IV (20:45)
[2021-03-21] MEDS: Potassium Chloride 10mEq/100mL 10 MEQ/100 ML IV.SOLN. 100 MEQ IV BOLUS ×3 (21:10→23:04)
[2021-03-22] MEDS: Potassium Chloride 10mEq/100mL 10 MEQ/100 ML IV.SOLN. 100 MEQ IV BOLUS (00:04)
[2021-03-22] MEDS: proMETHazine 25 MG/ML Syringe 12.5 MG IM ×6 (01:02→21:19)
[2021-03-22] MEDS: Ondansetron 4 MG/2 ML Vial IV ×6 (01:03→21:19)
[2021-03-22] MEDS: HYDROmorphone 1 MG/ML Syringe IV (01:07)
[2021-03-22] MEDS: Potassium Chloride 40 MEQ in Dext 5%-0.45% NS 1,000 ML 175 MEQ IV ×3 (01:30→17:44)
--- NOTE | 2021-03-22 03:02 | NURSING ---
round completed on patient. pt asleep at this time. no needs noted.
[2021-03-22 03:20] VITALS: BP 121/70; PULSE 72; PULSE 77; TEMP 36.8; O2SAT 98
[2021-03-22 08:03] LABS: ALB/GLOB Ratio 0.7 RATIO (0.9-2.4); AST(SGOT) 82 U/L (15-37); Alanine Aminotransfer ALT/SGPT 178 U/L (13-56); Albumin, Serum 2.3 g/dL (3.2-5.0); Alkaline Phosphatase 82 U/L (45-117); Anion Gap 7 (5-15); BUN 4 mg/dL (7-18); BUN/Creat Ratio 7.8 RATIO (10-20); Calcium,Total 8.1 mg/dL (8.5-10.1); Chloride 104 mmol/L (98-107); Creatinine, Serum 0.51 mg/dL (0.55-1.02); EST Glomerular Filtration Rate 155 mL/min (>60); Est Glom Filt Rate - Afr Amer 188 mL/min (>60); Estimated Creatinine Clearance 139.49 ml/min; Globulin 3.5 g/dL (2.2-4.2); Glucose 109 mg/dL (74-106); Potassium 3.5 mmol/L (3.5-5.1); Protein, Total 5.8 g/dL (6.4-8.2); Sodium Level 135 mmol/L (136-145)
--- NOTE | 2021-03-22 08:06 | US_ITS ---
STUDY: ABDOMINAL ULTRASOUND - RIGHT UPPER QUADRANT REASON FOR VISIT: Female, 25 years old RUQ pain. R/O ludmila . The patient is 14 weeks . TECHNIQUE: Ultrasound evaluation of the right upper quadrant was performed with real-time and static moscoso-scale imaging. TECHNICAL QUALITY: Adequate. COMPARISON: None. FINDINGS: Liver: The liver measures 17.8 cm. There is normal echogenicity of the liver. The bile ducts are within normal limits. There is hepatic color flow. The direction of portal flow is hepatopetal. There is no demonstrated mass lesion. Gallbladder: Normal distended gallbladder. The gallbladder wall measures 2 mm. There is a negative sonographic Romero''s sign. There is no pericholecystic fluid. There are no gallstones. A small amount of sludge is seen within the gallbladder lumen. Common Bile Duct (C.B.D.): The common bile duct measures 3 mm. Pancreas: Normal size of the head, body and tail of the pancreas. There is normal echogenicity of the pancreas. There is no demonstrated pancreatic mass or cyst. Right Kidney: Normal size of the right kidney. The right kidney measures 10.4 cm x 5 cm x 4.4 cm. Normal renal cortex. The right cortex measures 1.5 cm. There is no demonstrated renal mass or cyst. There is no right hydronephrosis. US/Abdomen Limited IMPRESSION: Small amount of sludge is seen within the gallbladder lumen. Electronically Signed: Elgin Horner MD at 10:01 EST , Service support ,
--- NOTE | 2021-03-22 08:40 | PCM.PN.BLA ---
Progress Note pt is sitting up in bed complaining or abdominal pain that comes in waves and causes nausea. She states that warm showers usually help and she want to get in the shower. She states that her last joint was her first encounter with marijuana and was only 4 hits. I explained to her that her Tox screen came back positive for THC. Physical Exam HEENT normocephalic Resp normal respiratory effort and normal air movement GI soft to palpation, non-tender and non-distended; Negative for hepatosplenomegaly no CVA tenderness Extremity normal to inspection General Extremity: edema bilateral (trace ) Assessment & Plan Assessment/Plan (1) Obesity affecting : (2) Hyperemesis gravidarum: (3) : PLAN: 15 weeks with refractory N/V (4) Adverse effect of synthetic cannabinoid: PLAN: based on her symptoms of vague abdominal pain and admitting to feeling better in the shower along with + THC, I strongly suspect Cannibis intoxication, however will rule out other GI etiology first treatment is IV fluid, zofran, reglan, and benzos for refractory nausea. RUQ ultrasound, and lipase ordered lorazepam ordered in the meantime.
[2021-03-22 09:36] LABS: Amylase 29 U/L (25-115); Lipase 78 U/L (73-393)
[2021-03-22] MEDS: LORazepam 1 MG Tablet PO (12:51)
--- NOTE | 2021-03-22 14:45 | NURSING ---
Pt. in room whimpering and crying - obviously has been vomiting. Reports she has been vomiting since about 30 min after getting po Ativan. Pt. rating pain all over abd at 7-8/10. Reports shower helped some, but then wasn't helping anymore. Given scheduled Zofran and Phenergan. To call Dr. Lara and review POC, review of RUQ ultrasound. Call to Lexie in office, reviewed above info - will give message to Dr. Hua, and return phone call. Asked pt. if using any other CBD products while here, pt. denies at this time.
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
[2021-03-22] MEDS: Haloperidol Lactate 5 MG/ML Vial 1 MG IV (15:55)
--- NOTE | 2021-03-22 16:07 | NURSING ---
Remainder of Haldol dose wasted with Marcio Kincaid RN.
[2021-03-22] MEDS: Metoclopramide 10 MG/2 ML Vial 5 MG IV ×2 (16:51→22:06)
--- NOTE | 2021-03-22 17:16 | NURSING ---
Report given to Mara RIOS from PCU who will assume care of this patient.
--- NOTE | 2021-03-22 17:39 | PCS.PANDOC ---
PANDEMIC DOCUMENTATION INITIATED: Date: 11/28/2020 Time: 190
[2021-03-22 17:55] VITALS: PULSE 79
[2021-03-22 18:00] VITALS: BP 140/80; PULSE 77; RESP 18; TEMP 36.8; O2SAT 100
[2021-03-22 19:28] VITALS: PULSE 94
--- NOTE | 2021-03-22 22:40 | NURSING ---
Addendum for 1030 03/22/21: Assessment completed - negative assessment. Pt. cont. to c/o n/v/stomach pain. Given scheduled Zofran and Phenergan. Informed Dilaudid d/c'd and will have to determine what else is to be ordered for pain. BP 124/84, P 80, T 97.8, R 18. FHT's obtained by GABRIEL Sorensen, heard at 145. Pt. moved to room 8, able to walk down hallway.
[2021-03-23] VITALS (9 sets, daily range): BP systolic 114–134; BP diastolic 60–84; PULSE 74–99; RESP 16–18; TEMP 36.6–37.2; O2SAT 98–99
[2021-03-23] MEDS: Potassium Chloride 40 MEQ in Dext 5%-0.45% NS 1,000 ML 175 MEQ IV ×3 (00:38→16:19)
[2021-03-23] MEDS: Haloperidol Lactate 5 MG/ML Vial IV (00:39)
[2021-03-23] MEDS: Ondansetron 4 MG/2 ML Vial IV ×2 (00:43→05:47)
[2021-03-23] MEDS: proMETHazine 25 MG/ML Syringe 12.5 MG IM ×2 (03:01→05:47)
[2021-03-23] MEDS: Metoclopramide 10 MG/2 ML Vial 5 MG IV ×4 (03:01→22:01)
[2021-03-23 05:31] LABS: Absolute Lymphocyte Count 1.57 X10^3/uL (0.83-4.51); Absolute Neutrophil Count 6.9 X10^3/uL (2.0-7.7); Basophil# 0.02 X10^3/uL; Basophil% 0.2 % (0-1); Eosinophil# 0.08 X10^3/uL; Eosinophils% 0.9 % (0-5); Hematocrit 34.7 % (37-47); Hemoglobin 11.7 g/dL (12.0-15.0); Lymphocyte # 1.57 X10^3/ul (0.83-4.51); Lymphocyte % 17.2 % (19-41); Mean Corp Hgb Conc 33.7 g/dL (32-36); Mean Corpuscular Hgb 30.5 pg (27.0-32.0); Mean Corpuscular Volume 90.4 fL (81-99); Mean Platelet Vol. 10.5 fl (6.2-12.0); Monocyte# 0.58 X10^3/uL; Monocyte% 6.3 % (0-10); NRBC Flagged by Analyzer 0 % (0-5); Neutrophil # 6.87 X10^3/uL (2.7-7.7); Neutrophil % 75.1 % (47-70); Platelet Count 214 K/mm3 (150-450); RBC Distribution Width CV 13.3 % (11.6-14.6); RBC Distribution Width SD 43.7 fl (35.1-43.9); Red Blood Count 3.84 M/mm3 (4.2-5.4); White Blood Count 9.2 K/mm3 (4.4-11.0)
[2021-03-23 06:08] LABS: HEPATITIS B SURFACE AG Negative (Negative); Hepatitis A IgM Antibody Negative (Negative); Hepatitis B Core AB IgM Negative (Negative)
[2021-03-23 06:21] LABS: ALB/GLOB Ratio 0.7 RATIO (0.9-2.4); AST(SGOT) 126 U/L (15-37); Alanine Aminotransfer ALT/SGPT 256 U/L (13-56); Albumin, Serum 2.6 g/dL (3.2-5.0); Alkaline Phosphatase 97 U/L (45-117); Anion Gap 7 (5-15); BUN 3 mg/dL (7-18); BUN/Creat Ratio 4.6 RATIO (10-20); Calcium,Total 8.4 mg/dL (8.5-10.1); Chloride 103 mmol/L (98-107); Creatinine, Serum 0.65 mg/dL (0.55-1.02); EST Glomerular Filtration Rate 118 mL/min (>60); Est Glom Filt Rate - Afr Amer 142 mL/min (>60); Estimated Creatinine Clearance 109.45 ml/min; Globulin 3.9 g/dL (2.2-4.2); Glucose 110 mg/dL (74-106); Potassium 3.8 mmol/L (3.5-5.1); Protein, Total 6.5 g/dL (6.4-8.2); Sodium Level 135 mmol/L (136-145)
--- NOTE | 2021-03-23 08:24 | PN.OBGYN_ITS ---
Subjective Subjective pt is laying on her side in bed and is lucid. She states that her discomfort in her abdomen is much better today and is a 3/10 on a scale from 1-10. This is much improved from yesterday when she rated the pain a 10. She has not had a bowel movement in one week and states that the nausea is improving but still the re. She wants to try food today. She complains of chest discomfort from vomiting. No shortness of breath or pain radiating to neck or arm. Objective Data Objective Data Vital Signs: Vital Signs Temp Pulse Resp BP Pulse Ox 98.2 F 81 16 120/74 99 03/23/21 05:52 03/23/21 05:52 03/23/21 05:52 03/23/21 05:52 03/23/21 05:52 Oxygen Delivery Method Room Air Weight: 220 lb Body Mass Index (BMI) 38.9 Intake & Output: Intake and Output for Last 24 Hours 03/21/21 03/22/21 03/23/21 23:59 23:59 23:59 Intake Total 2241 / 2241 4280 / 4280 1020 / 1020 Balance 2241 / 2241 4280 / 4280 1020 / 1020 Lab / Micro Data Result Diagrams: 03/23/21 04:56 03/23/21 04:56 Labs: Laboratory Results - last 24 hr 03/22/21 07:12: Amylase 29, Lipase 78 03/23/21 04:56: WBC 9.2, RBC 3.84 L, Hgb 11.7 L, Hct 34.7 L, MCV 90.4, MCH 30.5, MCHC 33.7, RDW Std Deviation 43.7, RDW Coeff of Irena 13.3, Plt Count 214, MPV 10.5, Immature Gran % (Auto) 0.300, Neut % (Auto) 75.1 H, Lymph % (Auto) 17.2 L, [place] % (Auto) 6.3, Eos % (Auto) 0.9, Baso % (Auto) 0.2, Absolute Neuts (auto) 6.9, Absolute Lymphs (auto) 1.57, Nucleated RBC % 0 03/23/21 04:56: Sodium 135 L, Potassium 3.8, Chloride 103, Carbon Dioxide 25.0, Anion Gap 7, BUN 3 L, Creatinine 0.65, Estim Creat Clear Calc 109.45, Est GFR (MDRD) Af Amer 142, Est GFR (MDRD) Non-Af 118, BUN/Creatinine Ratio 4.6 L, Glucose 110 H, Calcium 8.4 L, Total Bilirubin 1.00, AST 126 H, ALT 256 H, Alkaline Phosphatase 97, Total Protein 6.5, Albumin 2.6 L, Globulin 3.9, Albumin/Globulin Ratio 0.7 L Micro: Microbiology 03/21/21 16:21 Mucosa - Nasopharyngeal Influenza Types A,B Direct FA ([facility]) - Final Radiography Diagnostic Testing: Radiology Impression Abdomen Ultrasound 03/22/21 08:06 IMPRESSION: Small amount of sludge is seen within the gallbladder lumen. Electronically Signed: Elgin Horner MD at 10:01 EST , Service support , ROS Constitutional Constitutional: Denies chills, fever(s) or headache(s) Eyes Eyes: Denies blurry vision, change in vision, seeing flashes or spots in vision ENT HEENT: Denies dizziness, headache(s), loss taste/smell or sore throat Cardiovascular Cardiovascular: Denies chest pain, dizziness, dyspnea, irregular heart rhythm, leg edema, palpitations or rapid heart rate Respiratory/Chest Respiratory/Chest: Denies chest tightness, cough, dyspnea or breast pain Gastrointestinal Gastrointestinal: Denies cramping, diarrhea or hemorrhoids Genitourinary Genitourinary: Denies dysuria, flank pain, genital lesions, genital pain, urinary frequency or urinary urgency Neurologic Neurologic: Denies abnormal movements, abnormal speech, dizziness, numbness, seizure-like activity or syncope Psychiatric Psychiatric: Denies confusion, hallucinations or suicidal thoughts Physical Exam Const alert, oriented x3, no apparent distress and healthy appearing General Appearance: cooperative; Negative for anxious HEENT normocephalic Face and Sinus: normal facial exam Eyes EOMs intact bilaterally and no scleral icterus General Eye: normal appearance of both eyes Neck full ROM and supple Lymph Lymphatic: no lymphadenopathy noted Chest Chest: abnormal inspection of the chest Resp normal respiratory effort Effort and Inspection: able to speak in complete sentences Cardio regular rate GI soft to palpation and non-tender Palpation: soft; Negative for tender external exam normal Back/Spine no CVA tenderness Extremity normal to inspection, full ROM and no clubbing, cyanosis or edema General Extremity: Negative for calf tenderness or edema Skin Lesions: no lesions Rashes: no rashes Psych mental status grossly normal Assessment & Plan (1) Adverse effect of synthetic cannabinoid: PLAN: juana seems to have aleviated symptoms and now she is only experiencing nausea from the (2) Hyperemesis gravidarum: COMMENT: STO IVFs, zofran/phenergan scheduled plus reglan PRN, stop thiamine plan to advance diet today to cold clears and some light solids. if tolerates will dc home today or tomorrow with Reglan pump, oral dissolving zofran, and CT phenergan. (3) : COMMENT: DANIEL vera (4) Supervision of high-risk : COMMENT: LUPIS 09/18/21 CAMRON Ferreira
[2021-03-23] MEDS: Polyethylene Glycol 3350 17 GM PACKET PO (09:48)
[2021-03-23] MEDS: proMETHazine 25 MG Suppos. RC (09:48)
[2021-03-23] MEDS: Ondansetron ODT 4 MG Tablet PO (09:48)
[2021-03-23 13:23] LABS: Hep C Antibodies <0.1 s/co ratio (0.0-0.9)
--- NOTE | 2021-03-23 14:12 | CASEMGMT ---
Social Work PCU Patient transferred from the to the PCU last evening. Met with patient today. Patient appears much improved as compared to initial social work visit on 03.22.2021, as evidenced by relaxed body posture in bed, smiling, good eye contact, and able to hold conversation without complaints of pain. Patient reports to be feeling much better and more hopeful. Patient reports may return to work with an infusion pump if able (works as a kennel manager dog track) but if not then the patient's reportedly has adequate income for the household. Patient reports has not yet done the Medicaid application. Patient reports plan to do so however. Left this short story writer's name and number to call when completed, so that form can be sent to S. Patient agreed to work on form. This short story writer broached marijuana use in . Patient maintains this was a one time occurrence, which patient did on the recommendation of a family member. Patient reports felt badly about trying it while , but that wanted to see if could find some relief. Patient denies intent to use marijuana any further in this . Educated patient that sometimes at time of delivery children services gets involved for substance use during , so it will be important for patient to consider choices moving forward. Patient declines need for referral to additional supportive services for substance use. Patient expressed that has no plans to use marijuana again. Patient denies any history of children services when living in [place]. Does confirm that daughter Hanna normally lives with the patient, but has been spending time with Hanna's father. Explored whether patient needs any resources such as head start (for Hanna) or other resources. Patient reports Hanna is being enrolled in a daycare/preschool in [facility]. Reports all is good with housing, transportation, finances at this time. Reports also to have some baby supplies in place already. Plan: Will fax Medicaid referral to [facility] should patient complete prior to discharge. -MARIANNE Mathis, KILN PULLER
[2021-03-23] MEDS: Ceftriaxone 1 GM/50 ML BAG IV (16:19)
[2021-03-23 18:48] LABS: Erythrocyte Sedimentation Rate 19 mm/hr (0-30)
[2021-03-23 18:53] LABS: CPK Total, Creatine Kinase 132 U/L (26-192); CRP 7.43 mg/L (0.0-3.0); Ferritin 31 ng/mL (8-252); LDH 314 U/L (84-246)
--- NOTE | 2021-03-23 19:28 | NURSING ---
FHT checked at 1630 150. pt tolerated well
[2021-03-23 19:38] LABS: International Normalized Ratio 1.1; Prothrombin Time (Protime)PT. 13.9 SECONDS (11.7-14.9)
--- NOTE | 2021-03-23 19:44 | CON.PCM.GI_ITS ---
HPI Consult Data Date of Consult: 03/23/21 HPI Narrative HPI Narrative: BILLY WILSON, is a 25 F who presents with intractable nausea vomiting secondary to hyperemesis. She is 14 weeks . She does also have history of chronic marijuana usage and is being treated for marijuana hyperemesis. When she initially came in she had a mild elevation in her liver enzymes. She came into the hospital her bilirubin was 0.8, AST 82, ALT 118, alk phos 82, albumin 2.6, INR 1.1, PTT 13.9. Her bili went up to 1 her AST went up to 126, ALT to 256, alk phos 297. I ordered an LDH which was elevated at 314. Her CRP was also elevated at 7.3, her albumin is still 2.6 and I ordered a CPK which is 132. Viral hepatitis labs for acute hepatitis A and B were normal and chronic hepatitis C were also normal. Her ultrasound was as follows: The liver measures 17.8 cm. There is normal echogenicity of the liver. The bile ducts are within normal limits. There is hepatic color flow. The direction of portal flow is hepatopetal. There is no demonstrated mass lesion. Gallbladder: Normal distended gallbladder. The gallbladder wall measures 2 mm. There is a negative sonographic Romero''s sign. There is no pericholecystic fluid. There are no gallstones. A small amount of sludge is seen within the gallbladder lumen. Common Bile Duct (C.B.D.): The common bile duct measures 3 mm. Pancreas: Normal size of the head, body and tail of the pancreas. There is normal echogenicity of the pancreas. There is no demonstrated pancreatic mass or cyst. PFSH Allergy/AdvReac Type Severity Reaction Status Date / Time mushroom Allergy Anaphylaxis Verified 03/21/21 16:56 Family History (Updated 03/21/21 @ 16:12 by Mone Hawkins) Mother Cancer Grandmother Cancer Social History (Updated 03/21/21 @ 16:12 by Mone Hawkins) Smoking Status: Never smoker alcohol intake: never substance use type: does not use caffeine: No what type of physical activity do you participate in: none seatbelt use: always do you feel safe at home: Yes additional social history: Dylon ROS Review of Systems ROS Unobtainable: other Constitutional Constitutional: Denies fatigue, fever(s), poor appetite, weight gain or weight loss ENT HEENT: Denies mouth lesions Cardiovascular Cardiovascular: Denies abdominal bloating, abdominal edema or abdominal pain Respiratory/Chest Respiratory/Chest: Denies change in mental status, change in phlegm color, chest congestion or chest tightness Gastrointestinal Gastrointestinal: Denies belching, bloating, change in bowel habits, change in stool character, chewing difficulty, coffee ground emesis, constipation, cramping, diarrhea, dyspepsia, dysphagia, early satiety, excessive flatus, fecal incontinence, heartburn, hematemesis, hematochezia, hemorrhoids, loose stools, melena, nausea, odynophagia, rectal bleeding, tenesmus, vomiting or weight changes Genitourinary Genitourinary: Denies abdominal discomfort, burning urination or itching Musculoskeletal Musculoskeletal: Reports as per HPI; Denies muscle weakness or myalgias Integumentary Integumentary: Denies jaundice Neurologic Neurologic: Denies lack of coordination or weakness Psychiatric Psychiatric: Denies confusion, depression, memory loss, mood swings, paranoia or suicidal ideation Endocrine Endocrinology: Denies systems reviewed and no addt'l complaints, except as documented Hematologic/Lymphatic Hematologic/Lymphatic: Denies anemia, easy bleeding, easy bruising or lymphadenopathy Allergic/Immunologic Allergic/Immunologic: Denies systems reviewed and no addt'l complaints, except as documented Physical Exam Const alert General Appearance: cooperative Orientation / Consciousness: oriented to person HEENT hearing grossly normal bilaterally Head and Scalp: normal to inspection Face and Sinus: face symmetric Nose: external nose normal Mouth: oral and palatal mucosa normal Eyes conjunctivae normal General Eye: normal appearance of both eyes Neck full ROM General: normal visual inspection Lymph Lymphatic: no lymphadenopathy noted Chest inspection of chest normal and palpation of chest normal Chest: symmetrical chest wall rise Resp normal respiratory effort Effort and Inspection: able to speak in complete sentences Cardio regular rate GI non-distended Percussion: normal to percussion Rectal Exam: deferred Neuro Speech: speech normal Gait (Neuro): normal gait Lab / Micro Data Result Diagrams: 03/23/21 04:56 03/23/21 04:56 Labs: Laboratory Results - last 24 hr 03/21/21 20:50: Hepatitis A IgM Ab Negative, Hep Bs Antigen Negative, Hep B Core IgM Ab Negative, Hepatitis C Ab (EIA) <0.1 03/23/21 04:56: WBC 9.2, RBC 3.84 L, Hgb 11.7 L, Hct 34.7 L, MCV 90.4, MCH 30.5, MCHC 33.7, RDW Std Deviation 43.7, RDW Coeff of Irena 13.3, Plt Count 214, MPV 10.5, Immature Gran % (Auto) 0.300, Neut % (Auto) 75.1 H, Lymph % (Auto) 17.2 L, [place] % (Auto) 6.3, Eos % (Auto) 0.9, Baso % (Auto) 0.2, Absolute Neuts (auto) 6.9, Absolute Lymphs (auto) 1.57, Nucleated RBC % 0 03/23/21 04:56: Sodium 135 L, Potassium 3.8, Chloride 103, Carbon Dioxide 25.0, Anion Gap 7, BUN 3 L, Creatinine 0.65, Estim Creat Clear Calc 109.45, Est GFR (MDRD) Af Amer 142, Est GFR (MDRD) Non-Af 118, BUN/Creatinine Ratio 4.6 L, Glucose 110 H, Calcium 8.4 L, Total Bilirubin 1.00, AST 126 H, ALT 256 H, Alkaline Phosphatase 97, Total Protein 6.5, Albumin 2.6 L, Globulin 3.9, Albumin/Globulin Ratio 0.7 L 03/23/21 04:56: ESR 19 03/23/21 04:56: Ferritin 31, Lactate Dehydrogenase 314 H, Total Creatine Kinase 132, C-React Prot Ext Range 7.43 H 03/23/21 19:08: PT 13.9, INR 1.1 Micro: Microbiology 03/21/21 17:40 Urine, Clean Catch Urine Culture - Final Mixed Gram Positive Organisms Assessment & Plan Assessment/Plan (1) Adverse effect of synthetic cannabinoid: PLAN: Marijuana usage during can have adverse effects on the liver. Hepatotoxicity is a potential complication from the usage of various illicit drugs, possibly consequent to their liver metabolism. Marijuana can cause hepatomegaly and splenomegaly and slightly elevated AST , ALT . (2) Hyperemesis gravidarum: PLAN: this is normal during the first trimester. Think this is worse for her secondary to marijuana usage. (3) Elevated liver enzymes: PLAN: I suspect that her elevated liver enzymes are part of her hyperemesis. Her pattern of injury is not revealing any cholestasis hepatitis which would be consistent with drug-induced injury , cholecystitis or choleli thiasis. The pattern can also be consistent with mild Tylenol induced drug injury. I would not give any more Tylenol this time. Also the differential diagnosis for a transaminitis revealing mild hepatocellular injury would be ischemia. This would be from abdominal cramping from nausea vomiting which should improve with IV fluids. Charges/Coding Visit Charges Inpatient E&M: 20878 Init Hosp L3
[2021-03-23] MEDS: 0.9% Saline Lock 10 ML Syringe IV (22:03)
[2021-03-23] MEDS: Famotidine 200 MG/20 ML MDV 20 MG in 0.9% Normal Saline (Pres. free 8 ML 300 MG IV (23:23)
[2021-03-24] MEDS: Potassium Chloride 40 MEQ in Dext 5%-0.45% NS 1,000 ML 175 MEQ IV ×2 (00:11→09:15)
[2021-03-24 03:05] VITALS: BP 110/69; PULSE 78; RESP 16; TEMP 36.7; O2SAT 99
[2021-03-24] MEDS: Metoclopramide 10 MG/2 ML Vial 5 MG IV ×2 (04:18→10:22)
[2021-03-24 06:25] LABS: Absolute Lymphocyte Count 2.38 X10^3/uL (0.83-4.51); Absolute Neutrophil Count 5.9 X10^3/uL (2.0-7.7); Basophil# 0.01 X10^3/uL; Basophil% 0.1 % (0-1); Eosinophil# 0.11 X10^3/uL; Eosinophils% 1.2 % (0-5); Hemoglobin 11.3 g/dL (12.0-15.0); Lymphocyte # 2.38 X10^3/ul (0.83-4.51); Lymphocyte % 26.6 % (19-41); Mean Corp Hgb Conc 32.3 g/dL (32-36); Mean Corpuscular Hgb 29.7 pg (27.0-32.0); Mean Corpuscular Volume 92.1 fL (81-99); Mean Platelet Vol. 10.6 fl (6.2-12.0); Monocyte# 0.56 X10^3/uL; Monocyte% 6.3 % (0-10); NRBC Flagged by Analyzer 0 % (0-5); Neutrophil # 5.85 X10^3/uL (2.7-7.7); Neutrophil % 65.5 % (47-70); Platelet Count 219 K/mm3 (150-450); RBC Distribution Width CV 13.6 % (11.6-14.6); White Blood Count 8.9 K/mm3 (4.4-11.0)
[2021-03-24 06:51] LABS: ALB/GLOB Ratio 0.6 RATIO (0.9-2.4); AST(SGOT) 86 U/L (15-37); Alanine Aminotransfer ALT/SGPT 233 U/L (13-56); Albumin, Serum 2.4 g/dL (3.2-5.0); Alkaline Phosphatase 106 U/L (45-117); Anion Gap 7 (5-15); BUN 6 mg/dL (7-18); BUN/Creat Ratio 10.3 RATIO (10-20); Calcium,Total 8.5 mg/dL (8.5-10.1); Chloride 106 mmol/L (98-107); Creatinine, Serum 0.58 mg/dL (0.55-1.02); EST Glomerular Filtration Rate 133 mL/min (>60); Est Glom Filt Rate - Afr Amer 160 mL/min (>60); Estimated Creatinine Clearance 122.66 ml/min; Globulin 3.9 g/dL (2.2-4.2); Glucose 92 mg/dL (74-106); Potassium 4.4 mmol/L (3.5-5.1); Protein, Total 6.3 g/dL (6.4-8.2); Sodium Level 135 mmol/L (136-145)
--- NOTE | 2021-03-24 08:29 | PCM.DC ---
Discharge Instructions Diet Discharge Diet: No restrictions Activity Discharge Activity: Return to Normal Activity Follow Up Care Please Follow Up With: Dr. Lara When: 2 weeks Test Results: Test results from this visit will be discussed in further detail at your follow-up appointment, if applicable. Discharge Plan Admission Admit Date/Time: 03/21/21 16:51 Primary Reason for Your Visit: hyperemesis gravidarum, Cannabis intoxication Attending Provider: Janay Suh Primary Care Provider: Care Physician,No Primary Consulting Providers: Yury,Adithya Instructions Patient Instructions: Cannabinoid Hyperemesis Syndrome Discharge Orders/Prescriptions Prescriptions: New promethazine 25 mg suppository 25 mg LA Q6H PRN (Reason: nausea and vomiting) Qty: 24 RF: 3 metoclopramide HCl [Reglan] 10 mg tablet 10 mg PO Q6H PRN (Reason: nausea and vomiting) Qty: 30 RF: 0 ondansetron 4 mg tablet,disintegrating 4 mg PO Q8H PRN (Reason: nausea and vomiting) Qty: 30 RF: 3 docusate sodium [Colace] 100 mg capsule 100 mg PO DAILY PRN (Reason: constipation ) Qty: 30 RF: 3 Referrals / Follow Up: Care Physician,No Primary [Primary Care Provider] - Disposition Disposition (needs filled in before D/C Order can be placed): Home, Self Care
--- NOTE | 2021-03-24 08:37 | DS.PCM_ITS ---
Providers Date of Admission: 03/21/21 Primary Care Physician: Chelsea [facility] Phys Consultations 03/23/21 16:52 Consult: Gastroenterology Routine Consulting Provider: Christel Gastroenterology Reason for Consult: elevated LFTs, 14 weeks , cannabis intoxication EMERGENT Consult: No MD Notified: Yes Date Notified: 03/23/21 Time Notified: 16:52 Method of Notification: Text Reason For Visit: SHORT TERM OBSERVATION/HYPER EMESIS Diagnosis Discharge Diagnosis (1) Adverse effect of synthetic cannabinoid: Status: Acute Code(s): T40.725A - Adverse effect of synthetic cannabinoids, initial encounter (2) Hyperemesis gravidarum: Status: Acute Code(s): O21.0 - Mild hyperemesis gravidarum (3) Elevated liver enzymes: Status: Acute Code(s): R74.8 - Abnormal levels of other serum enzymes Medications at Discharge Home Medications docusate sodium [Colace] 100 mg PO DAILY PRN #30 cap 03/24/21 metoclopramide HCl [Reglan] 10 mg PO Q6H PRN #30 tab 03/24/21 ondansetron 4 mg PO Q8H PRN #30 tab 03/24/21 promethazine 25 mg SC Q6H PRN #24 ea 03/24/21 Hospital Course Operations None Procedures None Summary of Care Provided Minutes Spent on Discharge: 30 Hospital Course: The patient was admitted on Saturday night 03/21/2021 due to intractable vomitting and abdominal pain. She was treated the first night with IV fluids, NPO, and antiemetics. On HD #2 a tox result returned pos for cannabis and the patient admitted to living in a household that uses chronic marijuana and she was using the drug as well. She was still complaining of 10/10 pain and imaging was normal. The diagnosis of cannabis intoxication was made and she was treated with haldol and placed on the Tele unit x 1 1/2 days. on HD#3 her pain improved nausea was mild to moderate. She was kept one more day for a GI consult to discuss elevated LFT's. ON HD #4 she was feeling much better and asked to go home. LFt's were decreasing by that time. Physical Exam Const alert, oriented x3, no apparent distress and healthy appearing General Appearance: cooperative; Negative for anxious HEENT normocephalic Face and Sinus: normal facial exam Chest Chest: abnormal inspection of the chest Resp normal respiratory effort Effort and Inspection: able to speak in complete sentences Cardio regular rate GI soft to palpation and non-tender Inspection: gravid Palpation: soft; Negative for tender external exam normal Back/Spine no CVA tenderness Extremity normal to inspection, full ROM and no clubbing, cyanosis or edema General Extremity: Negative for calf tenderness or edema Skin Lesions: no lesions Rashes: no rashes Psych mental status grossly normal Weight / BMI Weight Weight: 220 lb 0.341 oz Body Mass Index (BMI) 38.9 ABG / Lab / Microbiology Data Result Diagrams: 03/24/21 05:10 03/24/21 05:10 Laboratory: Laboratory Results - last 24 hr 03/21/21 20:50: Hepatitis A IgM Ab Negative, Hep Bs Antigen Negative, Hep B Core IgM Ab Negative, Hepatitis C Ab (EIA) <0.1 03/23/21 04:56: ESR 19 03/23/21 04:56: Ferritin 31, Lactate Dehydrogenase 314 H, Total Creatine Kinase 132, C-React Prot Ext Range 7.43 H 03/23/21 19:08: PT 13.9, INR 1.1 03/24/21 05:10: WBC 8.9, RBC 3.80 L, Hgb 11.3 L, Hct 35.0 L, MCV 92.1, MCH 29.7, MCHC 32.3, RDW Std Deviation 45.0 H, RDW Coeff of Irena 13.6, Plt Count 219, MPV 10.6, Immature Gran % (Auto) 0.300, Neut % (Auto) 65.5, Lymph % (Auto) 26.6, [place] % (Auto) 6.3, Eos % (Auto) 1.2, Baso % (Auto) 0.1, Absolute Neuts (auto) 5.9, Absolute Lymphs (auto) 2.38, Nucleated RBC % 0 03/24/21 05:10: Sodium 135 L, Potassium 4.4, Chloride 106, Carbon Dioxide 22.0, Anion Gap 7, BUN 6 L, Creatinine 0.58, Estim Creat Clear Calc 122.66, Est GFR (MDRD) Af Amer 160, Est GFR (MDRD) Non-Af 133, BUN/Creatinine Ratio 10.3, Glucose 92, Calcium 8.5, Total Bilirubin 0.40, AST 86 H, ALT 233 H, Alkaline Phosphatase 106, Total Protein 6.3 L, Albumin 2.4 L, Globulin 3.9, Albumin/Globulin Ratio 0.6 L Microbiology: Microbiology 03/21/21 17:40 Urine, Clean Catch Urine Culture - Final Mixed Gram Positive Organisms 03/21/21 16:21 Mucosa - Nasopharyngeal Influenza Types A,B Direct FA (LASHELL) - Final D/C Instructions Discharge Diet: No restrictions Please Follow Up With: Dr. Lara When: 2 weeks Meaningful Use Info Meaningful Use Diagnoses (Choose all that apply): None applicable Discharge Plan Admission Admit Date/Time: 03/21/21 16:51 Primary Reason for Your Visit: hyperemesis gravidarum, Cannabis intoxication Attending Provider: Janay Suh Primary Care Provider: Care Physician,No Primary Consulting Providers: Adithya Cotton Instructions Patient Instructions: Cannabinoid Hyperemesis Syndrome Discharge Orders/Prescriptions Prescriptions: New promethazine 25 mg suppository 25 mg SC Q6H PRN (Reason: nausea and vomiting) Qty: 24 RF: 3 metoclopramide HCl [Reglan] 10 mg tablet 10 mg PO Q6H PRN (Reason: nausea and vomiting) Qty: 30 RF: 0 ondansetron 4 mg tablet,disintegrating 4 mg PO Q8H PRN (Reason: nausea and vomiting) Qty: 30 RF: 3 docusate sodium [Colace] 100 mg capsule 100 mg PO DAILY PRN (Reason: constipation ) Qty: 30 RF: 3 Referrals / Follow Up: Care Physician,No Primary [Primary Care Provider] - Disposition Disposition (needs filled in before D/C Order can be placed): Home, Self Care Charges/Coding Multi Select Codes Visit Charges Visit Charges: 83378 Subs Hosp L3
[2021-03-24 10:19] VITALS: BP 128/68; PULSE 97; RESP 18; TEMP 36.6; O2SAT 98
--- NOTE | 2021-03-24 11:00 | NURSING ---
T 156. Patient tolerated well. Patient being discharged
--- NOTE | 2021-03-24 11:36 | PHA.DC.MR ---
Pharmacy Service has performed discharge medication reconciliation for this patient. The patient's discharge medication list was reviewed for discrepancies and discrepancies were resolved. Medication education papers prepared, patient discharged before I was able to senior counsel commercial. Medications reviewed. Home Medications docusate sodium [Colace] 100 mg PO DAILY PRN #30 cap 03/24/21 metoclopramide HCl [Reglan] 10 mg PO Q6H PRN #30 tab 03/24/21 ondansetron 4 mg PO Q8H PRN #30 tab 03/24/21 promethazine 25 mg [place] Q6H PRN #24 ea 03/24/21
[2021-03-25 16:08] LABS: Anti-Centromere B Ab <0.2 AI (0.0-0.9); Anti-Chromatin <0.2 AI (0.0-0.9); Anti-Jo <0.2 AI (0.0-0.9); Anti-Scleroderma-70 AB <0.2 AI (0.0-0.9); RNP Ab <0.2 AI (0.0-0.9); SJOGREN'S Anti-SS-A test < 0.2 AI (0.0-0.9); SJOGREN'S Anti-SS-B test < 0.2 AI (0.0-0.9); Smith Ab <0.2 AI (0.0-0.9)
[2021-03-25 16:16] LABS: Anti-dsDNA Ab <1 IU/mL (0-9)
[2021-03-28 03:07] LABS: Ceruloplasmin 50.2 mg/dL (19.0-39.0); Endomysial Antibody IgA Negative (Negative); Immunoglobulin A 212 mg/dL (87-352)
[2021-03-28 15:27] LABS: Anti-Smooth Muscle ABS 7 Units (0-19); Copper, Serum or Plasma 206 ug/dL (80-158); Deamidated Gliadin IgA 4 units (0-19); Deamidated Gliadin IgG 1 units (0-19); t-Transglutaminase IgA <2 U/mL (0-3)
== END 2021-03-24 08:35 | disposition home or self-care (01) ==
LOC: LABSPEC 03-23 08:28 → WP 03-23 09:10 → PCU 03-23 09:10
PROVIDERS: Internal Medicine Gastroenterology; Admitting Provider Obstetrics & Gynecology; Referring Provider Obstetrics & Gynecology; Visit Provider Obstetrics & Gynecology
DX: O9A.212 Injury, poisoning and certain other consequences of external causes complicating pregnancy, second trimester (principal); O99.322 Drug use complicating pregnancy, second trimester; F12.929 Cannabis use, unspecified with intoxication, unspecified; R79.89 Other specified abnormal findings of blood chemistry; T40.715A Adverse effect of cannabis, initial encounter; O21.0 Mild hyperemesis gravidarum; R74.8 Abnormal levels of other serum enzymes; O99.212 Obesity complicating pregnancy, second trimester; E66.9 Obesity, unspecified; Z3A.14 14 weeks gestation of pregnancy
CPT/HCPCS: 36415; 76705; 76816; 80053; 80074; 80307; 82150; 82390; 82525; 82550; 82728; 82784; 83036; 83516; 83615; 83690; 84443; 85025; 85610; 85652; 86140; 86225; 86235; 86255; 87086; 87088; 87635; 87804; 96361; 96365; 96367; 96372; 96375; 96376; 97802; 99218; J7120; U0005; A4216; G0378; G0379; J2405; J3490; J7799; U0003

== ENCOUNTER 2021-03-25 10:12 | Inpatient (IN) | payer SELFPAY ==
[2021-03-25 10:13] VITALS: BP 120/84; PULSE 111; RESP 20; TEMP 36.1; O2SAT 98; BMI 38.6
--- NOTE | 2021-03-25 10:34 | EX.ED.DYSGE1 ---
HPI History of Present Illness Chief Complaint: Nausea/Vomiting Informant: patient Onset/Context/Timing Onset: Days Current Severity: Moderate Maximum Severity: Severe Narrative Narrative: Patient presents secondary to hyperemesis. She is currently 15 weeks . She was admitted to the hospital Mar 21 through the secondary to hyperemesis, LFTs, cannabis use. Patient was discharged yesterday but states that she has had vomiting again and cannot keep any of her meds in. She called her doctor and was advised to come back to the emergency room. Patient denies fever or chills. She is starting to have some abdominal cramping. No bleeding or spotting. She states she did have problems with nausea and vomiting during her first but medication was able to control it. [facility] Medical History (Updated 03/25/21 @ 14:[address] Vivienne Foster MD) Hyperemesis gravidarum Home Medications docusate sodium [Colace] 100 mg PO DAILY PRN #30 cap 03/24/21 [Rx Last Taken Unknown] metoclopramide HCl [Reglan] 10 mg PO Q6H PRN #30 tab 03/24/21 [Rx Last Taken Unknown] ondansetron 4 mg PO Q8H PRN #30 tab 03/24/21 [Rx Last Taken Unknown] promethazine 25 mg [place] Q6H PRN #24 ea 03/24/21 [Rx Last Taken Unknown] promethazine 25 mg PO PRN PRN 03/25/21 [History Last Taken Unknown] Allergy/AdvReac Type Severity Reaction Status Date / Time mushroom Allergy Anaphylaxis Verified 03/25/21 10:15 Family History Mother Cancer Grandmother Cancer Social History Smoking Status: Never smoker alcohol intake: never substance use type: does not use caffeine: No what type of physical activity do you participate in: none seatbelt use: always do you feel safe at home: Yes additional social history: Dylon ROS ROS ED Constitutional Constitutional ED: Denies chills or fever(s) Eyes Eyes: Denies change in vision ENT ENT ED: Denies sore throat Cardiovascular Cardiovascular: Denies chest pain Respiratory/Chest Respiratory/Chest: Denies cough or dyspnea Gastrointestinal Gastrointestinal: Reports abdominal pain, nausea and vomiting; Denies diarrhea Genitourinary Genitourinary ED: Denies dysuria Musculoskeletal Musculoskeletal: Denies back pain Integumentary Denies rash Neurologic Neurologic: Denies headache(s) Allergic/Immunologic Allergic/Immunologic ED: Denies urticaria EXAM Physical Exam Const Vital Signs: 03/25/21 10:13 03/25/21 11:13 Temperature 97 F L 98 F Temperature Source Temporal Temporal Pulse Rate 111 H 92 Respiratory Rate 20 H 10 L Blood Pressure 120/84 H 121/86 H Blood Pressure Mean 96 97 Pulse Ox 98 98 Oxygen Delivery Method Room Air Room Air Positive well nourished and well developed General Appearance ED: well developed Eyes PERRL and EOMs intact bilaterally Neck supple Chest Wall inspection of chest normal and palpation of chest normal Resp normal respiratory effort and clear to auscultation bilaterally Cardio regular rate and regular rhythm GI non-tender Auscultation: hypoactive bowel sounds Palpation: soft Extremity normal to inspection Neuro oriented x3 Sensorium / Orientation: alert Skin no rashes or lesions noted MDM MDM MDM Narrative Medical decision making narrative: Patient had lab work obtained. She was given Reglan and Benadryl. Lab Data Attestation: I reviewed the patient's lab results. Labs: Laboratory Results - last 24 hr 03/25/21 03/25/21 11:13 11:13 WBC 12.2 H RBC 4.48 Hgb 13.7 Hct 40.1 MCV 89.5 MCH 30.6 MCHC 34.2 D RDW Std Deviation 44.0 H RDW Coeff of Irena 13.5 Plt Count 273 MPV 10.3 Immature Gran % (Auto) 0.300 Neut % (Auto) 85.5 H Lymph % (Auto) 9.6 L [place] % (Auto) 4.2 Eos % (Auto) 0.2 Baso % (Auto) 0.2 Absolute Neuts (auto) 10.5 H Absolute Lymphs (auto) 1.18 Nucleated RBC % 0 Sodium 134 L Potassium 3.8 Chloride 99 Carbon Dioxide 26.0 Anion Gap 9 BUN 10 Creatinine 0.74 Estim Creat Clear Calc 96.14 Est GFR (MDRD) Af Amer 123 Est GFR (MDRD) Non-Af 102 BUN/Creatinine Ratio 13.6 Glucose 98 Calcium 9.9 Total Bilirubin 0.60 Direct Bilirubin 0.25 AST 118 H ALT 304 H Alkaline Phosphatase 128 H Total Protein 7.8 Albumin 3.1 L Globulin 4.7 H Lipase 174 Treatment and Re-Evaluation Comments:: Patient was able to fall asleep after being given Reglan and Benadryl. When she woke she was dry heaving again. She is given IV Zofran. She states that as long as the IV analgesics are in she does not feel too nauseated. She been unable to keep any pills down at home and was unable to tolerate the suppositories stating that she would push them out when she was heaving so hard. Lab work does reveal white count of 12.2, likely reactive from vomiting. LFTs have been elevated and are slightly increased when compared to recent discharge numbers. I spoke with Dr. Alamo and patient will be admitted again for fluids and treatment. Discharge Plan Triage Chief Complaint: Nausea/Vomiting ED Provider: Vivienne Foster Dx/Rx/DC Orders Clinical Impression: Hyperemesis gravidarum Prescriptions: No Action promethazine 25 mg suppository 25 mg CO Q6H PRN (Reason: nausea and vomiting) Qty: 24 RF: 3 metoclopramide HCl [Reglan] 10 mg tablet 10 mg PO Q6H PRN (Reason: nausea and vomiting) Qty: 30 RF: 0 ondansetron 4 mg tablet,disintegrating 4 mg PO Q8H PRN (Reason: nausea and vomiting) Qty: 30 RF: 3 docusate sodium [Colace] 100 mg capsule 100 mg PO DAILY PRN (Reason: constipation ) Qty: 30 RF: 3 promethazine 25 mg tablet 25 mg PO PRN PRN (Reason: Nausea) RF: 0 Primary Care Provider: May Kirkpatrick DAYTIME BABYSITTER Referrals: May Kirkpatrick DAYTIME BABYSITTER, DAYTIME BABYSITTER-C [Primary Care Provider] - Disposition Disposition: Acute Care [facility]
[2021-03-25] MEDS: DiphenhydrAMINE 50 MG/ML Syringe 25 MG IV (11:09)
[2021-03-25] MEDS: 0.9% Normal Saline 1,000 ML 150 ML IV ×3 (11:09→21:25)
[2021-03-25] MEDS: Metoclopramide 10 MG/2 ML Vial IV ×2 (11:09→17:26)
[2021-03-25] MEDS: 0.9% Normal Saline 1,000 ML 1000 ML IV (11:09)
[2021-03-25 11:13] VITALS: BP 121/86; PULSE 92; RESP 10; TEMP 36.6; O2SAT 98
[2021-03-25 11:23] LABS: Absolute Lymphocyte Count 1.18 X10^3/uL (0.83-4.51); Absolute Neutrophil Count 10.5 X10^3/uL (2.0-7.7); Basophil# 0.02 X10^3/uL; Basophil% 0.2 % (0-1); Eosinophil# 0.02 X10^3/uL; Eosinophils% 0.2 % (0-5); Hematocrit 40.1 % (37-47); Hemoglobin 13.7 g/dL (12.0-15.0); Lymphocyte # 1.18 X10^3/ul (0.83-4.51); Lymphocyte % 9.6 % (19-41); Mean Corp Hgb Conc 34.2 g/dL (32-36); Mean Corpuscular Hgb 30.6 pg (27.0-32.0); Mean Corpuscular Volume 89.5 fL (81-99); Mean Platelet Vol. 10.3 fl (6.2-12.0); Monocyte# 0.52 X10^3/uL; Monocyte% 4.2 % (0-10); NRBC Flagged by Analyzer 0 % (0-5); Neutrophil # 10.46 X10^3/uL (2.7-7.7); Neutrophil % 85.5 % (47-70); Platelet Count 273 K/mm3 (150-450); RBC Distribution Width CV 13.5 % (11.6-14.6); Red Blood Count 4.48 M/mm3 (4.2-5.4); White Blood Count 12.2 K/mm3 (4.4-11.0)
[2021-03-25 12:00] LABS: AST(SGOT) 118 U/L (15-37); Alanine Aminotransfer ALT/SGPT 304 U/L (13-56); Albumin, Serum 3.1 g/dL (3.2-5.0); Alkaline Phosphatase 128 U/L (45-117); Anion Gap 9 (5-15); BUN 10 mg/dL (7-18); BUN/Creat Ratio 13.6 RATIO (10-20); Bilirubin, Direct 0.25 mg/dL (0.00-0.30); Calcium,Total 9.9 mg/dL (8.5-10.1); Chloride 99 mmol/L (98-107); Creatinine, Serum 0.74 mg/dL (0.55-1.02); EST Glomerular Filtration Rate 102 mL/min (>60); Est Glom Filt Rate - Afr Amer 123 mL/min (>60); Estimated Creatinine Clearance 96.14 ml/min; Globulin 4.7 g/dL (2.2-4.2); Glucose 98 mg/dL (74-106); Lipase 174 U/L (73-393); Potassium 3.8 mmol/L (3.5-5.1); Protein, Total 7.8 g/dL (6.4-8.2); Sodium Level 134 mmol/L (136-145)
[2021-03-25] MEDS: Ondansetron 4 MG/2 ML Vial IV ×3 (14:29→21:25)
--- NOTE | 2021-03-25 14:57 | NURSING ---
MED SURG MARCANTHONY INTRACTABLE VOMITING
[2021-03-25 15:19] VITALS: BP 115/98; PULSE 102; RESP 19; TEMP 36.8; O2SAT 98
[2021-03-25 16:25] VITALS: BP 141/80; PULSE 83; RESP 16; TEMP 36.7; O2SAT 100
[2021-03-25 16:29] VITALS: BMI 37.7
--- NOTE | 2021-03-25 16:42 | PCS.PANDOC ---
PANDEMIC DOCUMENTATION INITIATED: Date: 11/28/2020 Time: 190
[2021-03-25] MEDS: MethylPREDNISolone DosePak 4 MG BOX PO ×2 (17:20→21:23)
[2021-03-25] MEDS: 0.9% Saline Lock 10 ML Syringe IV (17:27)
--- NOTE | 2021-03-25 17:30 | HP.PCM.OB_ITS ---
HPI - General General Date of Admission: 03/25/21 HPI Narrative BILLY WILSON, is a 25 F who presents with hyperemesis gravidarum exacerbation, unable to tolerate po intake at home. upon evaluation she has had overall improvement since initial evaluation saturday but oculdn't keep her meds down or the phenergan i nthe rectum due to pushing it out with retching. she is more calm appearing today and denies any vaginal bleeding, has some abdominal cramping but less than before. Maternal Data Information LUPIS Calculator Estimated Delivery Date Method Current WG Current Estimate 09/18/21 LMP (Certain) 14w 5d PFSH PFSH Medical History (Updated 03/25/21 @ 17:[address] Janay Suh MD) Hyperemesis gravidarum Home Medications metoclopramide HCl [Reglan] 10 mg PO Q6H PRN #30 tab 03/24/21 [Rx Last Taken Unknown] ondansetron 4 mg PO Q8H PRN #30 tab 03/24/21 [Rx Last Taken Unknown] promethazine 25 mg [place] Q6H PRN #24 ea 03/24/21 [Rx Last Taken Unknown] promethazine 25 mg PO PRN PRN 03/25/21 [History Last Taken Unknown] Allergy/AdvReac Type Severity Reaction Status Date / Time mushroom Allergy Anaphylaxis Verified 03/25/21 10:15 Family History Mother Cancer Grandmother Cancer Social History Smoking Status: Never smoker alcohol intake: never substance use type: does not use caffeine: No what type of physical activity do you participate in: none seatbelt use: always do you feel safe at home: Yes additional social history: Dylon History 2 Elective abortions Hx Para 1 Spontaneous abortions Hx # Term Pregnancies Ectopic pregnancies Hx # Pregnancies Multiple births # of living children Past Pregnancies Del. Date Name GA/Weeks Outcome Route Bth Weight Gen Labor Lgth Anesthesia Del Locatn Provider FOB 02/28/17 [place] 39 live - full term Delivery Date: 02/28/17 hyperemesis gravidarum Janay Suh Visit Details Expected Delivery Route/Plan Labor Preferences- CB/BF classes: [] labor support person: [] labor intervention preferences: [] pain management options preferred: [] cut cord/dad catch: [] : [] PP control planned: [] discussed possible routes of delivery and associated risks: [] special requests: [] Plans Covid status: [] Flu vaccine: [] Tdap vaccine: [] Rhogam: [] LARC form signed: [] Problem list reviewed and updated with the most current plan of care details and appropriate orders placed. Relevant counseling for the gestational age provided. Continue routine care and follow up unless otherwise noted in visit notes/problem list details OB Flowsheet Initial Weight: Not Recorded Date -?-?-?-?-?-?-?-?-?-?-?-?- EGA Weight BP Urine Prot -?-?-?-?-?-?-?-?-?-?-?-?- Glucose FHR FuHt Pres Dilation -?-?-?-?-?-?-?-?-?-?-?-?- Effaced St Visit Note 03/21/21 -?-?-?-?-?-?-?-?-?-?-?-?- 14w 1d 220 lb 122/84 -?-?-?-?-?-?-?-?-?-?-?-?- -?--?-?-?-?-?-?-?-?-?-?-?- Direct admit to labor and delivery for IV fluids plan [facility] consult 03/25/21 -?-?-?-?-?-?-?-?-?-?-?-?- 14w 5d 218 lb 212 lb 11.937 oz 120/84 121/86 115/98 115/98 141/80 -?-?-?-?-?-?-?-?-?-?-?-?- -?-?-?-?-?-?-?-?-?-?-?-?- ROS Constitutional Constitutional: Denies chills, fever(s) or headache(s) Eyes Eyes: Denies blurry vision, change in vision, seeing flashes or spots in vision ENT HEENT: Denies dizziness, headache(s), loss taste/smell or sore throat Cardiovascular Cardiovascular: Denies chest pain, dizziness, dyspnea, irregular heart rhythm, leg edema, palpitations or rapid heart rate Respiratory/Chest Respiratory/Chest: Denies chest tightness, cough, dyspnea or breast pain Gastrointestinal Gastrointestinal: Denies cramping, diarrhea or hemorrhoids Genitourinary Genitourinary: Denies dysuria, flank pain, genital lesions, genital pain, urinary frequency or urinary urgency Neurologic Neurologic: Denies abnormal movements, abnormal speech, dizziness, numbness, seizure-like activity or syncope Psychiatric Psychiatric: Denies confusion, hallucinations or suicidal thoughts Vital Signs Vital Signs Vital Signs: 03/25/21 10:13 03/25/21 11:13 03/25/21 15:19 Temperature 97 F L 98 F 98.3 F Temperature Source Temporal Temporal Temporal Pulse Rate 111 H 92 102 H Respiratory Rate 20 H 10 L 19 H Respiratory Effort Respiratory Depth Respiratory Pattern Blood Pressure 120/84 H 121/86 H 115/98 H Blood Pressure Mean 96 97 103 Blood Pressure Source Blood Pressure Position Blood Pressure Location Pulse Ox 98 98 98 Oxygen Delivery Method Room Air Room Air Room Air 03/25/21 16:25 03/25/21 16:44 Temperature 98.0 F Temperature Source Temporal Pulse Rate 83 Respiratory Rate 16 Respiratory Effort Normal Non-Labored Respiratory Depth Normal Respiratory Pattern Normal Blood Pressure 141/80 H Blood Pressure Mean 100 Blood Pressure Source Monitor Blood Pressure Position Semi-Fowlers Blood Pressure Location Left Arm Pulse Ox 100 Oxygen Delivery Method Room Air Room Air Weight Weight: 212 lb 11.937 oz Body Mass Index (BMI) 37.7 Physical Exam Const alert, oriented x3, no apparent distress and healthy appearing General Appearance: cooperative; Negative for anxious HEENT normocephalic Face and Sinus: normal facial exam Eyes EOMs intact bilaterally and no scleral icterus General Eye: normal appearance of both eyes Neck full ROM and supple Lymph Lymphatic: no lymphadenopathy noted Chest Chest: abnormal inspection of the chest Resp normal respiratory effort Effort and Inspection: able to speak in complete sentences Cardio regular rate GI soft to palpation and non-tender Palpation: soft; Negative for tender external exam normal Back/Spine no CVA tenderness Extremity normal to inspection, full ROM and no clubbing, cyanosis or edema General Extremity: Negative for calf tenderness or edema Skin Lesions: no lesions Rashes: no rashes Psych mental status grossly normal Labs Labs Labs: Blood Type AB POSITIVE Hct 40.1 % (37-47) Hgb 13.7 g/dL (12.0-15.0) Obstetrics US Hep Bs Antigen Negative (Negative) Assessment & Plan (1) Hyperemesis gravidarum: COMMENT: reglan and zofran scheduled, compazine PRN. steroid dose pack started. [facility] consult for reglan pump and IVFs. (2) Elevated liver enzymes: COMMENT: neg hep panel, nl glucose. nl RUQ us. likely sec to HG, continue to follow. GI consult will follow up as OP (3) Adverse effect of synthetic cannabinoid: COMMENT: patient hasn't used since saturday, s/p haldol. none on current admission. (4) Obesity affecting : COMMENT: hga1c checked. (5) : COMMENT: DANIEL [place] (6) Supervision of high-risk : COMMENT: LUPIS 09/18/21 CAMRON Ferreira PLAN: see above PL comments for plan details Charges/Coding Visit Charges OBSV E&M: 58322 Initial observation care L3
[2021-03-25 19:17] LABS: Acetaminophen (Tylenol) Level 16.2 ug/mL (10.0-30.0)
[2021-03-25 21:24] LABS: Amphetamine Urine VISTA NEGATIVE (<1000 ng/mL); Barbiturate Urine VISTA NEGATIVE (< 200 ng/mL); Benzodiazepine Urine VISTA NEGATIVE (< 200 ng/mL); Cocaine Urine VISTA NEGATIVE (< 300 ng/mL); Ecstacy Urine VISTA NEGATIVE (< 500 ng/mL); Methadone Urine VISTA NEGATIVE (< 300 ng/mL); PCP Urine VISTA NEGATIVE (< 25 ng/mL); THC Urine VISTA POSITIVE (< 50 ng/mL); Vista UDS pH Range 6
--- NOTE | 2021-03-25 23:31 | NURSING ---
FHT found in lower middle of the abdomen. FHT 140s. Patient denies pain, tightening, or contractions. Resting in bed with easy respirations. Abdomen palpates soft.
[2021-03-26 00:25] VITALS: BP 123/79; PULSE 95; RESP 16; TEMP 36.9; O2SAT 94
[2021-03-26] MEDS: Metoclopramide 10 MG/2 ML Vial IV ×4 (00:28→20:43)
[2021-03-26] MEDS: Ondansetron 4 MG/2 ML Vial IV ×5 (02:12→20:43)
[2021-03-26 06:25] VITALS: BP 118/82; PULSE 77; RESP 12; TEMP 36.2; O2SAT 100
[2021-03-26 06:30] LABS: ALB/GLOB Ratio 0.6 RATIO (0.9-2.4); AST(SGOT) 105 U/L (15-37); Alanine Aminotransfer ALT/SGPT 266 U/L (13-56); Albumin, Serum 2.5 g/dL (3.2-5.0); Alkaline Phosphatase 104 U/L (45-117); Anion Gap 9 (5-15); BUN 6 mg/dL (7-18); BUN/Creat Ratio 10.9 RATIO (10-20); Calcium,Total 8.8 mg/dL (8.5-10.1); Chloride 104 mmol/L (98-107); Creatinine, Serum 0.55 mg/dL (0.55-1.02); EST Glomerular Filtration Rate 142 mL/min (>60); Est Glom Filt Rate - Afr Amer 172 mL/min (>60); Estimated Creatinine Clearance 129.35 ml/min; Globulin 4.1 g/dL (2.2-4.2); Glucose 116 mg/dL (74-106); Potassium 4.1 mmol/L (3.5-5.1); Protein, Total 6.6 g/dL (6.4-8.2); Sodium Level 134 mmol/L (136-145)
--- NOTE | 2021-03-26 07:00 | PCM.PN.OB ---
Subjective Subjective nausea stable and no emesis since yesterday. co heartrburn. no abdominal pain passing gas and urinating. Objective Data Objective Data Vital Signs: Vital Signs Temp Pulse Resp BP Pulse Ox 97.1 F L 77 12 118/82 H 100 03/26/21 06:25 03/26/21 06:25 03/26/21 06:25 03/26/21 06:25 03/26/21 06:25 Oxygen Delivery Method Room Air Weight: 212 lb 11.937 oz Body Mass Index (BMI) 37.7 Intake & Output: Intake and Output for Last 24 Hours 03/24/21 03/25/21 03/26/21 23:59 23:59 23:59 Intake Total 1922.75 / 192.75 Balance 1922.75 / 1922.75 Lab / Micro Data Result Diagrams: 03/25/21 11:13 03/26/21 05:40 Labs: Laboratory Results - last 24 hr 03/25/21 11:13: WBC 12.2 H, RBC 4.48, Hgb 13.7, Hct 40.1, MCV 89.5, MCH 30.6, MCHC 34.2 D, RDW Std Deviation 44.0 H, RDW Coeff of Irena 13.5, Plt Count 273, MPV 10.3, Immature Gran % (Auto) 0.300, Neut % (Auto) 85.5 H, Lymph % (Auto) 9.6 L, [place] % (Auto) 4.2, Eos % (Auto) 0.2, Baso % (Auto) 0.2, Absolute Neuts (auto) 10.5 H, Absolute Lymphs (auto) 1.18, Nucleated RBC % 0 03/25/21 11:13: Sodium 134 L, Potassium 3.8, Chloride 99, Carbon Dioxide 26.0, Anion Gap 9, BUN 10, Creatinine 0.74, Estim Creat Clear Calc 96.14, Est GFR (MDRD) Af Amer 123, Est GFR (MDRD) Non-Af 102, BUN/Creatinine Ratio 13.6, Glucose 98, Calcium 9.9, Total Bilirubin 0.60, Direct Bilirubin 0.25, AST 118 H, ALT 304 H, Alkaline Phosphatase 128 H, Total Protein 7.8, Albumin 3.1 L, Globulin 4.7 H, Lipase 174 03/25/21 17:39: Acetaminophen 16.2 12/11/21 17:39: Urine Opiates Screen NEGATIVE, Urine Methadone Screen NEGATIVE, Ur Barbiturates Screen NEGATIVE, Ur Phencyclidine Scrn NEGATIVE, Ur Amphetamines Screen NEGATIVE, U Methamphetamin-MDMA NEGATIVE, U Benzodiazepines Scrn NEGATIVE, Urine Cocaine Screen NEGATIVE, U Cannabinoids Screen POSITIVE H, Ur Drug Screen Comment 03/26/21 05:40: Sodium 134 L, Potassium 4.1, Chloride 104, Carbon Dioxide 21.0, Anion Gap 9, BUN 6 L, Creatinine 0.55, Estim Creat Clear Calc 129.35, Est GFR (MDRD) Af Amer 172, Est GFR (MDRD) Non-Af 142, BUN/Creatinine Ratio 10.9, Glucose 116 H, Calcium 8.8, Total Bilirubin 0.70, AST 105 H, ALT 266 H, Alkaline Phosphatase 104, Total Protein 6.6, Albumin 2.5 L, Globulin 4.1, Albumin/Globulin Ratio 0.6 L ROS Review of Systems ROS Unobtainable: due to mental status and other Constitutional Constitutional: Reports systems reviewed and no addt'l complaints, except as documented; Denies as per HPI, fatigue, fever(s), malaise, weakness or other Eyes Eyes: Reports systems reviewed and no addt'l complaints, except as documented; Denies as per HPI, change in vision or other ENT HEENT: Reports as per HPI and dizziness; Denies dry mouth, headache(s), loss taste/smell, nasal congestion, nasal discharge, neck pain, sore throat or other Respiratory/Chest Respiratory/Chest: Reports systems reviewed and no addt'l complaints, except as documented Gastrointestinal Gastrointestinal: Reports systems reviewed and no addt'l complaints, except as documented and nausea; Denies vomiting Musculoskeletal Musculoskeletal: Reports systems reviewed and no addt'l complaints, except as documented; Denies back pain or joint pain Neurologic Neurologic: Reports systems reviewed and no addt'l complaints, except as documented Psychiatric Psychiatric: Reports systems reviewed and no addt'l complaints, except as documented Endocrine Endocrinology: Reports systems reviewed and no addt'l complaints, except as documented Hematologic/Lymphatic Hematologic/Lymphatic: Reports systems reviewed and no addt'l complaints, except as documented Physical Exam Const alert, oriented x3 and no apparent distress HEENT normocephalic Head and Scalp: atraumatic Neck full ROM, no lymphadenopathy, supple and thyroid normal General: trachea midline Lymph Lymphatic: no lymphadenopathy noted Cardio regular rhythm GI normal to inspection, nondistended, normoactive bowel sounds, soft to palpation, non-distended and no masses Inspection: Negative for abdominal distention Back/Spine no CVA tenderness Extremity normal to inspection Skin no rashes or lesions noted Psych mental status grossly normal Assessment & Plan (1) Hyperemesis gravidarum: COMMENT: reglan and zofran scheduled, add pepcid. compazine PRN. steroid dose pack started. [facility] consult for reglan pump and IVFs. (2) Elevated liver enzymes: COMMENT: neg hep panel, nl glucose. nl RUQ us. likely sec to HG, continue to follow. GI consult will follow up as OP (3) Adverse effect of synthetic cannabinoid: COMMENT: patient hasn't used since saturday, s/p haldol. none on current admission. (4) Obesity affecting : COMMENT: hga1c checked. (5) : COMMENT: DANIEL [place] (6) Supervision of high-risk : COMMENT: LUPIS 09/18/21 CAMRON Ferreira PLAN: see pl comments
[2021-03-26 08:00] VITALS: PULSE 90; RESP 20; O2SAT 100
[2021-03-26] MEDS: MethylPREDNISolone DosePak 4 MG BOX PO ×4 (08:54→21:48)
[2021-03-26] MEDS: 0.9% Normal Saline 1,000 ML 50 ML IV ×2 (10:27→17:12)
[2021-03-26] MEDS: HYDROmorphone 1 MG/ML Syringe IV ×3 (11:24→20:31)
[2021-03-26 12:25] VITALS: BP 131/82; PULSE 90; RESP 20; TEMP 36.6; O2SAT 100
[2021-03-26] MEDS: Famotidine 20 MG Tablet PO (13:21)
[2021-03-26 18:25] VITALS: BP 125/77; PULSE 100; RESP 20; TEMP 36.6; O2SAT 99
--- NOTE | 2021-03-26 20:07 | NURSING ---
FHT 154 auscultated lower midline abdomen. Patient denies feeling contractions or abdominal tightening. Abdomen palpates soft. Patient states she has not been able to feel movement as of yet.
[2021-03-26 20:25] VITALS: BP 116/68; PULSE 71; RESP 16; TEMP 36.4; O2SAT 98
[2021-03-27] MEDS: Metoclopramide 10 MG/2 ML Vial IV ×2 (00:44→06:14)
[2021-03-27 02:46] VITALS: BP 96/53; PULSE 76; RESP 16; TEMP 36.9; O2SAT 98
[2021-03-27] MEDS: Ondansetron 4 MG/2 ML Vial IV ×2 (02:50→07:17)
[2021-03-27] MEDS: HYDROmorphone 1 MG/ML Syringe IV (06:14)
[2021-03-27 06:22] VITALS: BP 123/73
[2021-03-27 06:38] LABS: ALB/GLOB Ratio 0.7 RATIO (0.9-2.4); AST(SGOT) 89 U/L (15-37); Alanine Aminotransfer ALT/SGPT 260 U/L (13-56); Albumin, Serum 2.6 g/dL (3.2-5.0); Alkaline Phosphatase 100 U/L (45-117); Anion Gap 6 (5-15); BUN 6 mg/dL (7-18); BUN/Creat Ratio 10.8 RATIO (10-20); Calcium,Total 8.5 mg/dL (8.5-10.1); Chloride 102 mmol/L (98-107); Creatinine, Serum 0.56 mg/dL (0.55-1.02); EST Glomerular Filtration Rate 140 mL/min (>60); Est Glom Filt Rate - Afr Amer 169 mL/min (>60); Estimated Creatinine Clearance 127.04 ml/min; Globulin 3.9 g/dL (2.2-4.2); Glucose 117 mg/dL (74-106); Protein, Total 6.5 g/dL (6.4-8.2); Sodium Level 133 mmol/L (136-145)
--- NOTE | 2021-03-27 08:11 | PCM.PN.OB ---
Subjective Subjective persistent lower abdominal crmaping given dilaudid twice. some breakthrough emesis but doing fairly well, tolerating soft diet. drinking fluids and good urine output Objective Data Objective Data Vital Signs: Vital Signs Temp Pulse Resp BP Pulse Ox 98.4 F 76 16 123/73 H 98 03/27/21 02:46 03/27/21 02:46 03/27/21 02:46 03/27/21 06:22 03/27/21 02:46 Oxygen Delivery Method Room Air Weight: 212 lb 11.937 oz Body Mass Index (BMI) 37.7 Intake & Output: Intake and Output for Last 24 Hours 03/25/21 03/26/21 03/27/21 23:59 23:59 23:59 Intake Total 3.75 / 192.75 3076.25 / 3076.25 Balance 1922.75 / 1922.75 3076.25 / 3076.25 Medical Nutrition Assessment Dietitian: Malnutrition Criteria Met Start: 03/26/21 13:24 Freq: Status: Active Protocol: Document 03/26/21 13:24 AG (Rec: 03/26/21 13:24 AG [id number]) Nutrition Malnutrition Evidence of Malnutrition Exists Yes Malnutrition (severe): Acute Illness/Injury Evidenced By Suboptimal Energy Intake ( Severe),Weight Loss (Severe) Clinical Problem Acute Disease or Injury Related Malnutrition Etiology severe, acute malnutrition r/t hyperemesis gravidarum, decreased appetite Signs/Symptoms as evidenced by unintentional wt loss of .3kg/3.3% x 1 week, estimated PO intake meeting < 50% of estimated nutritional needs x1 week Status Active Problem Recommendation Dietitian Recommendations/Changes regular diet; will attempt to provide 1 scoop beneprotein w/ meals as tolerated Lab / Micro Data Result Diagrams: 03/25/21 11:13 03/27/21 05:08 Labs: Laboratory Results - last 24 hr 03/27/21 05:08: Sodium 133 L, Potassium 4.0, Chloride 102, Carbon Dioxide 25.0, Anion Gap 6, BUN 6 L, Creatinine 0.56, Estim Creat Clear Calc 127.04, Est GFR (MDRD) Af Amer 169, Est GFR (MDRD) Non-Af 140, BUN/Creatinine Ratio 10.8, Glucose 117 H, Calcium 8.5, Total Bilirubin 0.50, AST 89 H, ALT 260 H, Alkaline Phosphatase 100, Total Protein 6.5, Albumin 2.6 L, Globulin 3.9, Albumin/Globulin Ratio 0.7 L ROS Review of Systems ROS Unobtainable: due to mental status and other Constitutional Constitutional: Reports systems reviewed and no addt'l complaints, except as documented; Denies as per HPI, fatigue, fever(s), malaise, weakness or other Eyes Eyes: Reports systems reviewed and no addt'l complaints, except as documented; Denies as per HPI, change in vision or other ENT HEENT: Reports as per HPI and dizziness; Denies dry mouth, headache(s), loss taste/smell, nasal congestion, nasal discharge, neck pain, sore throat or other Respiratory/Chest Respiratory/Chest: Reports systems reviewed and no addt'l complaints, except as documented Gastrointestinal Gastrointestinal: Reports systems reviewed and no addt'l complaints, except as documented and nausea; Denies vomiting Musculoskeletal Musculoskeletal: Reports systems reviewed and no addt'l complaints, except as documented; Denies back pain or joint pain Neurologic Neurologic: Reports systems reviewed and no addt'l complaints, except as documented Psychiatric Psychiatric: Reports systems reviewed and no addt'l complaints, except as documented Endocrine Endocrinology: Reports systems reviewed and no addt'l complaints, except as documented Hematologic/Lymphatic Hematologic/Lymphatic: Reports systems reviewed and no addt'l complaints, except as documented Physical Exam Const alert, oriented x3 and no apparent distress HEENT normocephalic Head and Scalp: atraumatic Neck full ROM, no lymphadenopathy, supple and thyroid normal General: trachea midline Lymph Lymphatic: no lymphadenopathy noted Cardio regular rhythm GI normal to inspection, nondistended, normoactive bowel sounds, soft to palpation, non-distended and no masses Inspection: Negative for abdominal distention Back/Spine no CVA tenderness Extremity normal to inspection Skin no rashes or lesions noted Psych mental status grossly normal Assessment & Plan (1) Hyperemesis gravidarum: COMMENT: transition to oral med control. reglan and zofran scheduled, add pepcid. compazine PRN. steroid dose pack started. [facility] consult for reglan pump and IVFs. (2) Elevated liver enzymes: COMMENT: neg hep panel, nl glucose. nl RUQ us. likely sec to HG, continue to follow. GI consult will follow up as OP (3) Adverse effect of synthetic cannabinoid: COMMENT: patient hasn't used since saturday, s/p haldol. no haldol given on current admission. (4) Obesity affecting : COMMENT: hga1c checked. (5) : COMMENT: DANIEL [place] (6) Supervision of high-risk : COMMENT: LUPIS 09/18/21 CAMRON Ferreira PLAN: see pl comments Charges/Coding Visit Charges OBSV E&M: [id number] Subsequent observation care L3
[2021-03-27 09:15] LABS: Absolute Neutrophil Count 7.5 X10^3/uL (2.0-7.7); Basophil# 0.01 X10^3/uL; Basophil% 0.1 % (0-1); Eosinophil# 0.02 X10^3/uL; Eosinophils% 0.2 % (0-5); Hematocrit 34.1 % (37-47); Hemoglobin 11.4 g/dL (12.0-15.0); Lymphocyte % 12.9 % (19-41); Mean Corp Hgb Conc 33.4 g/dL (32-36); Mean Corpuscular Hgb 30.9 pg (27.0-32.0); Mean Corpuscular Volume 92.4 fL (81-99); Mean Platelet Vol. 10.8 fl (6.2-12.0); Monocyte# 0.55 X10^3/uL; Monocyte% 5.9 % (0-10); NRBC Flagged by Analyzer 0 % (0-5); Neutrophil # 7.49 X10^3/uL (2.7-7.7); Neutrophil % 80.5 % (47-70); Platelet Count 232 K/mm3 (150-450); RBC Distribution Width CV 13.5 % (11.6-14.6); RBC Distribution Width SD 45.8 fl (35.1-43.9); Red Blood Count 3.69 M/mm3 (4.2-5.4); White Blood Count 9.3 K/mm3 (4.4-11.0)
[2021-03-27] MEDS: 0.9% Normal Saline 1,000 ML 500 ML IV (09:21)
[2021-03-27] MEDS: Famotidine 20 MG Tablet PO (09:27)
[2021-03-27] MEDS: MethylPREDNISolone DosePak 4 MG BOX PO ×2 (09:27→11:29)
[2021-03-27 09:30] VITALS: BP 109/62; PULSE 86; RESP 16; TEMP 36.7; O2SAT 98
--- NOTE | 2021-03-27 10:27 | CASEMGMT ---
This RN CM spoke with Fabi at Dr. Suh's office and she states that they are working on reglan pump, home IV fluids thru [facility]. She said that [facility] has been trying to reach pt without success, so this RN CM provided with contact number at [facility] to attempt in facilitating set up for home. . Per Fabi, this RN CM does not need to complete any further d/c planning with pt as they are already working on. CM assessment to be completed. Riky RIOS CM
--- NOTE | 2021-03-27 11:15 | CASEMGMT ---
GABRIEL LIMON assessment: Face to face with pt for initial transition planning/care coordination assessment. RN ASHLY introduced self and role at [facility], pt voices understanding and consents to assessment. Pt is sitting up in bed in no distress. Pt is A/Ox4 and answers all questions appropriately. Care providers, pharmacy, and demographics verified. Presentation: Pt 15 wks and unable to keep fluids/meds down Admitting dx: Hyperemesis gravidum PCP: None Specialists: CHRIS Suh Preferred Pharmacy: [facility] Insurance: SP-pt completed NOE marium saturday that was faxed this AM by Patricia ALVA. Pt provided JFS number to f/u on NOE marium and try to obtain pend NOE number, pt voices understanding. Prescription Benefit: None Living Will/HPOA: Pt states does not have LW/HPOA and declines AD info. LNOK: Dylon Huang, Living Arrangements: Pt lives with in 2 story home and states no concerns at home. Pt is independent with ADL's. Transportation: Pt states drives self and states no transportation concerns. DME/HHC: Pt states no current DME or need for any further DME. See previous note by this GABRIEL LIMON regarding pt being set up with reglan pump and home iv fluids thru [facility] by Dr. Suh's office. Pt provided contact number for [facility] and advised to call them as they have not been able to get ahold of her. Pt states no hx of HHC or SNF. Pt states no concerns with going home at time of discharge. Pt is unemployed. Pt states does not smoke cigarettes or drink ETOH. Pt states has not used marijuana since prior to last visit. Pt voices no further concerns/needs. CM to follow for any further discharge planning/needs. Advised pt to ask for CM if any further questions/concerns/needs arise, voices understanding. Pt Goal: Home Plan: [place] GABRIEL LIMON
[2021-03-27] MEDS: Metoclopramide 10 MG Tablet PO (11:28)
--- NOTE | 2021-03-27 12:37 | EX.PCM.DISCH ---
Discharge Instructions Diet Discharge Diet: No restrictions Activity Discharge Activity: Return to Normal Activity May resume sexual activity in: No Restrictions Weight Bearing Status: Weight bearing as tolerated Dressing / Incision Call your doctor if your incision/area has: Increased Pain/ Swelling and Foul Smelling Discharge Call your doctor if you observe: Fever of 101 or Higher, Chest pain, Uncontrolled pain and - (not tolerating any food by mouth for over 24 hours) Follow Up Care Please Follow Up With: christoph When: this week. plan IV fluids and anti nausea medicine tomorrow afternoon, and again on saturday if home health is not approved. Test Results: Test results from this visit will be discussed in further detail at your follow-up appointment, if applicable. Discharge Plan Admission Admit Date/Time: 03/25/21 16:29 Attending Provider: Janay Suh Primary Care Provider: May Kirkpatrick NP Discharge Orders/Prescriptions Prescriptions: New famotidine [Pepcid] 20 mg tablet 20 mg PO DAILY Qty: 30 RF: 6 methylprednisolone [Medrol (Juan)] 4 mg tablets,dose pack 4 mg PO DAILY Qty: 21 RF: 0 Continued promethazine 25 mg suppository 25 mg AK Q6H PRN (Reason: nausea and vomiting) Qty: 24 RF: 3 metoclopramide HCl [Reglan] 10 mg tablet 10 mg PO Q6H PRN (Reason: nausea and vomiting) Qty: 30 RF: 0 ondansetron 4 mg tablet,disintegrating 4 mg PO Q8H PRN (Reason: nausea and vomiting) Qty: 30 RF: 3 promethazine 25 mg tablet 25 mg PO PRN PRN (Reason: Nausea) RF: 0 Referrals / Follow Up: May Kirkpatrick NP, TRAIN BRAKE OPERATOR-C [Primary Care Provider] - Disposition Disposition (needs filled in before D/C Order can be placed): Home, Self Care
[2021-03-27] MEDS: Ondansetron 8 MG Tablet PO (13:02)
--- NOTE | 2021-03-27 14:18 | CASEMGMT ---
Addendum entered by Sunitha Meza 03/27/21 14:22: Call to Fabi at Dr. Suh's office to update her and she states pt has been set up with OP infusion for the next couple days until she can obtain pend NOE number and get supplies for home. Riky RIOS CM Original Note: Pt states spoke with [facility] and was updated on self pay farias. Pt aware if NOE marium goes thru then NOE will be retroactive and cover costs, voices understanding. Pt voices no further questions/concerns/needs. Riky RIOS CM
--- NOTE | 2021-03-30 15:49 | PCM.DC.SUM ---
Providers Date of Admission: 03/25/21 Primary Care Physician: LINDSAY HillC Reason For Visit: HYPEREMESIS GRAVIDARUM Diagnosis Discharge Diagnosis (1) Hyperemesis gravidarum: Status: Acute Code(s): O21.0 - Mild hyperemesis gravidarum (2) Elevated liver enzymes: Status: Acute Code(s): R74.8 - Abnormal levels of other serum enzymes (3) Adverse effect of synthetic cannabinoid: Status: Acute Code(s): T40.725A - Adverse effect of synthetic cannabinoids, initial encounter (4) Obesity affecting : Status: Acute Code(s): O99.210 - Obesity complicating , unspecified trimester (5) : Status: Acute Code(s): Z34.90 - Encounter for supervision of normal , unspecified, unspecified trimester (6) Supervision of high-risk : Status: Acute Code(s): O09.90 - Supervision of high risk , unspecified, unspecified trimester Medications at Discharge Home Medications metoclopramide HCl [Reglan] 10 mg PO Q6H PRN #30 tab 03/24/21 ondansetron 4 mg PO Q8H PRN #30 tab 03/24/21 promethazine 25 mg RI Q6H PRN #24 ea 03/24/21 promethazine 25 mg PO PRN PRN 03/25/21 famotidine [Pepcid] 20 mg PO DAILY #30 tab 03/27/21 methylprednisolone [Medrol (Juan)] 4 mg PO DAILY #21 tab 03/27/21 Hospital Course Operations None Summary of Care Provided Hospital Course: Was admitted for hyperemesis gravidarum and after receiving IV fluids IV antiemetics she was stable for discharge to home on post admission day 3. She will be receiving IV fluids as an outpatient and [facility] home health consult was done to provide with home IV fluid therapy and Reglan pump. Weight / BMI Weight Weight: 212 lb 11.937 oz Body Mass Index (BMI) 37.7 ABG / Lab / Microbiology Data Result Diagrams: 03/27/21 09:11 03/27/21 05:08 D/C Instructions Discharge Diet: No restrictions May resume sexual activity in: No Restrictions Weight Bearing Status: Weight bearing as tolerated Call your doctor if your incision/area has: Increased Pain/ Swelling and Foul Smelling Discharge Call your doctor if you observe: Fever of 101 or Higher, Chest pain, Uncontrolled pain and - (not tolerating any food by mouth for over 24 hours) Please Follow Up With: christoph When: this week. plan IV fluids and anti nausea medicine tomorrow afternoon, and again on saturday if home health is not approved. Meaningful Use Info Meaningful Use Diagnoses (Choose all that apply): None applicable Discharge Plan Admission Admit Date/Time: 03/25/21 16:29 Attending Provider: Janay Suh Primary Care Provider: May Kirkpatrick SALES AND MERCHANDISING ASSOCIATE Discharge Orders/Prescriptions Prescriptions: New famotidine [Pepcid] 20 mg tablet 20 mg PO DAILY Qty: 30 RF: 6 methylprednisolone [Medrol (Juan)] 4 mg tablets,dose pack 4 mg PO DAILY Qty: 21 RF: 0 Continued promethazine 25 mg suppository 25 mg RI Q6H PRN (Reason: nausea and vomiting) Qty: 24 RF: 3 metoclopramide HCl [Reglan] 10 mg tablet 10 mg PO Q6H PRN (Reason: nausea and vomiting) Qty: 30 RF: 0 ondansetron 4 mg tablet,disintegrating 4 mg PO Q8H PRN (Reason: nausea and vomiting) Qty: 30 RF: 3 promethazine 25 mg tablet 25 mg PO PRN PRN (Reason: Nausea) RF: 0 Referrals / Follow Up: May Kirkpatrick NP, SALES AND MERCHANDISING ASSOCIATE-C [Primary Care Provider] - Disposition Disposition (needs filled in before D/C Order can be placed): Home, Self Care
== END 2021-03-27 13:59 | disposition home or self-care (01) | DRG 831 ==
LOC: ED 14:57 → PCU 18:10
PROVIDERS: Admitting Provider Obstetrics & Gynecology; Emergency Provider Emergency Medicine; PCP Nurse Practitioner Women's Health; Visit Provider Obstetrics & Gynecology
DX: O21.0 Mild hyperemesis gravidarum (principal); E43 Unspecified severe protein-calorie malnutrition; O99.322 Drug use complicating pregnancy, second trimester; O25.12 Malnutrition in pregnancy, second trimester; F12.90 Cannabis use, unspecified, uncomplicated; O99.212 Obesity complicating pregnancy, second trimester; O09.892 Supervision of other high risk pregnancies, second trimester; Z3A.15 15 weeks gestation of pregnancy
CPT/HCPCS: 36415; 80048; 80053; 80076; 80307; 80329; 83690; 85025; 97802; 99285; J7030; A4216; G0480; J2405

== ENCOUNTER → 2021-03-28 13:31 | Outpatient (CLI) | payer SELFPAY ==
[2021-03-28 13:49] VITALS: BP 129/67; PULSE 105; RESP 16; TEMP 36.1; O2SAT 98; BMI 38.7
[2021-03-28] MEDS: Ondansetron 4 MG/2 ML Vial IV (14:01)
[2021-03-28] MEDS: Dextrose 5%-Lactated Ringers 1,000 ML 999 ML IV (14:05)
[2021-03-28 15:24] VITALS: BP 140/69; PULSE 85; RESP 16; TEMP 36.6; O2SAT 99
== END ==
LOC: MEDOUTP 13:32
PROVIDERS: PCP Nurse Practitioner Women's Health; Referring Provider Obstetrics & Gynecology; Visit Provider Obstetrics & Gynecology
DX: E86.0 Dehydration (principal)
CPT/HCPCS: 96361; 96374; A4216; J2405

== ENCOUNTER → 2021-03-29 13:30 | Outpatient (CLI) | payer SELFPAY ==
[2021-03-29 13:41] VITALS: BP 130/63; PULSE 97; RESP 16; TEMP 35.9; O2SAT 98
[2021-03-29] MEDS: Ondansetron 4 MG/2 ML Vial IV (14:19)
[2021-03-29] MEDS: Dextrose 5%-Lactated Ringers 1,000 ML 999 ML IV (14:19)
[2021-03-29 15:20] VITALS: BP 138/70; PULSE 91; RESP 16; TEMP 36.2; O2SAT 100
== END ==
LOC: MEDOUTP 13:30
PROVIDERS: PCP Nurse Practitioner Women's Health; Referring Provider Obstetrics & Gynecology; Visit Provider Obstetrics & Gynecology
DX: E86.0 Dehydration (principal)
CPT/HCPCS: 96361; 96374; A4216; J2405

== ENCOUNTER 2021-04-14 12:47 | Observation (INO) | payer SELFPAY ==
[2021-04-14 12:49] VITALS: BP 142/91; PULSE 78; RESP 16; TEMP 36.4; O2SAT 97; BMI 38.9
[2021-04-14 12:51] VITALS: BP 142/91; PULSE 78; RESP 16; TEMP 36.4; O2SAT 97
--- NOTE | 2021-04-14 13:51 | EDS_ITS ---
HPI History of Present Illness Chief Complaint: Nausea/Vomiting Detail of Chief Complaint: Vomiting and Informant: patient Narrative Narrative: Patient presents to the emergency department chief complaint of vomiting that started 2 days ago severely although she has had this with and during her . Patient is G2, P1. She is about 18 weeks . She had an admission several weeks ago for the same complaint and was seen by GI and had ultrasound and labs and was diagnosed with chronic pancreatitis. Patient denies any diarrhea. She denies urinary symptoms. She had a fever up to 101 yesterday. She denies Covid symptoms and states she had Covid last year. Patient admits to marijuana use. Denies any other illicit drug use. Patient sent in by her A [facility]AN. Prior similar symptoms: Yes PFSH PFSH Medical History (Updated 04/14/21 @ 15:[address] Keven Mack DO) Hyperemesis gravidarum Home Medications metoclopramide HCl [Reglan] 10 mg PO Q6H PRN #30 tab 03/24/21 [Rx Last Taken Unknown] ondansetron 4 mg PO Q8H PRN #30 tab 03/24/21 [Rx Last Taken Unknown] promethazine 25 mg AR Q6H PRN #24 ea 03/24/21 [Rx Last Taken Unknown] promethazine 25 mg PO PRN PRN 03/25/21 [History Last Taken Unknown] famotidine [Pepcid] 20 mg PO DAILY #30 tab 03/27/21 [Rx Last Taken Unknown] Allergy/AdvReac Type Severity Reaction Status Date / Time mushroom Allergy Anaphylaxis Verified 04/14/21 12:51 Family History Mother Cancer Grandmother Cancer Social History Smoking Status: Never smoker alcohol intake: never substance use type: does not use caffeine: No what type of physical activity do you participate in: none seatbelt use: always do you feel safe at home: Yes additional social history: Dylon ROS ROS ED Constitutional Constitutional ED: Reports systems reviewed and no addt'l complaints, except as documented; Denies body ache(s), change in weight or chills Eyes Eyes: Denies acute decrease in peripheral vision, change in vision, double vision or loss of vision ENT ENT ED: Reports none; Denies ear pain, lip swelling, loss taste/smell, neck pain, otalgia or sore throat Cardiovascular Cardiovascular: Reports none; Denies abdominal pain, chest pain with activity, leg edema, lightheadedness, palpitations, rapid heart rate or syncope Respiratory/Chest Respiratory/Chest: Reports none; Denies change in mental status, dry cough, dyspnea, hemoptysis, shortness of breath at rest or shortness of breath with exertion Gastrointestinal Gastrointestinal: Reports none, abdominal pain, nausea and vomiting; Denies change in stool character, diarrhea, hematemesis, hematochezia, melena or rectal bleeding Genitourinary Genitourinary ED: Reports none; Denies abdominal discomfort, anuria, dysuria, genital pain or polyuria Musculoskeletal Musculoskeletal: Reports none; Denies arthralgias, back pain, difficulty walking, extremity pain, muscle weakness or myalgias Integumentary Reports none; Denies abscess or rash Neurologic Neurologic: Reports none; Denies abnormal gait, confusion, focal weakness, frequent falls, headache(s), loss of vision, numbness, paresthesias, radicular pain, vertigo or weakness Psychiatric Psychiatric: Reports systems reviewed and no addt'l complaints, except as documented and none; Denies behavioral changes, confusion, difficulty concentrating, hallucinations, suicidal ideation, tactile hallucinations or visual hallucinations Endocrine Endocrinology: Denies none, cold intolerance, excessive sweating, fatigue or heat intolerance Hematologic/Lymphatic Hematologic/Lymphatic: Reports none; Denies anemia, easy bleeding or easy bruising Allergic/Immunologic Allergic/Immunologic ED: Denies as per HPI, none, lip swelling, mouth swelling, throat swelling, tongue swelling or hives EXAM Physical Exam Const Vital Signs: 04/14/21 12:49 04/14/21 12:51 Temperature 97.6 F L 97.6 F L Temperature Source Temporal Temporal Pulse Rate 78 78 Respiratory Rate 16 16 Blood Pressure 142/91 H 142/91 H Blood Pressure Mean 108 108 Pulse Ox 97 97 Oxygen Delivery Method Room Air Room Air Positive well nourished and well developed General Appearance ED: well developed and NAD HEENT Reports TM's clear and moist mucous membranes normocephalic and atraumatic; Negative for trauma or tenderness Tympanic Membrane ED: Yes TM's clear Eyes PERRL and EOMs intact bilaterally General Eye ED: Negative for pale conjunctiva or scleral icterus Neck no lymphadenopathy, supple and no JVD General: Negative for tenderness Chest Wall inspection of chest normal and palpation of chest normal Chest: Negative for tenderness Resp normal respiratory effort and clear to auscultation bilaterally Effort and Inspection: Negative for respiratory distress or pain with movement Auscultation: Negative for rhonchi, wheezes or diminished lung sounds Cardio regular rate, regular rhythm, S1 normal heart sound, S2 normal heart sound and no murmurs Peripheral Pulses: pulses 2+ throughout GI normal to inspection, nondistended, normoactive bowel sounds, soft to palpation, non-distended and no masses GI Narrative: NABS. Patient has diffuse tenderness palpation. There is no rebound, rigidity, or peritoneal signs. Back/Spine no CVA tenderness and no thoracic nor lumbar tenderness Extremity normal to inspection General Extremety ED: Negative for edema General Extremity: Negative for edema Neuro oriented x3, CN's II-XII intact bilaterally, no sensory deficits noted and gait normal Sensorium / Orientation: awake, alert, oriented to person, oriented to place and oriented to time Motor Exam: strength 5/5 throughout and strength abnormal Psych mental status grossly normal Skin no rashes or lesions noted and no wounds MDM MDM MDM Narrative Medical decision making narrative: IV line established. Patient was given Reglan, Benadryl, and a liter mostly of fluid bolus. Patient continues to complain of nausea and was given Compazine 10 mg IV. Patient was given Decadron 10 mg IV. White blood cell count was elevated although I suspect this may be reactive from all the retching and vomiting and patient also . I feel her abdominal exam was benign. Her LFTs are actually improved when compared with prior visit and prior admission. On prior admission 2 weeks ago she had an ultrasound that showed some sludge in the gallbladder otherwise nothing acute. I suspect there is a component of hyperemesis related to THC as well. heart tones were 138. Case discussed with A CLASS [facility]EMAN on-call Dr. Suh who will evaluate weight patient for admission. Lab Data Attestation: I reviewed the patient's lab results. Labs: Laboratory Results - last 24 hr 04/14/21 04/14/21 04/14/21 14:10 14:10 14:15 WBC 15.8 H RBC 4.14 L Hgb 12.4 Hct 37.6 MCV 90.8 MCH 30.0 MCHC 33.0 RDW Std Deviation 44.7 H RDW Coeff of Irena 13.5 Plt Count 395 MPV 9.6 Immature Gran % (Auto) 0.300 Neut % (Auto) 92.1 H Lymph % (Auto) 5.3 L [place] % (Auto) 2.0 Eos % (Auto) 0.1 Baso % (Auto) 0.2 Absolute Neuts (auto) 14.5 H Absolute Lymphs (auto) 0.83 Nucleated RBC % 0 Sodium Potassium Chloride Carbon Dioxide Anion Gap BUN Creatinine Estim Creat Clear Calc Est GFR (MDRD) Af Amer Est GFR (MDRD) Non-Af BUN/Creatinine Ratio Glucose Lactic Acid Calcium Total Bilirubin AST ALT Alkaline Phosphatase Total Protein Albumin Globulin Albumin/Globulin Ratio Lipase Urine Color Yellow Urine Clarity Cloudy Urine pH 6.0 Ur Specific Secor 1.025 Urine Protein 30 H Urine Glucose (UA) Normal Urine Ketones 150 A* Urine Occult Blood Negative Urine Nitrite Negative Urine Bilirubin 1 H Urine Urobilinogen 4 H Ur Leukocyte Esterase 500 H Urine RBC 0 SEEN Urine WBC 5-10 SEEN Ur Squamous Epith Cells 0-5 SEEN Urine Bacteria 1+ Urine Mucus 2+ Urine Opiates Screen NEGATIVE Urine Methadone Screen NEGATIVE Ur Barbiturates Screen NEGATIVE Ur Phencyclidine Scrn NEGATIVE Ur Amphetamines Screen NEGATIVE U Methamphetamin-MDMA NEGATIVE U Benzodiazepines Scrn NEGATIVE Urine Cocaine Screen NEGATIVE U Cannabinoids Screen POSITIVE H Ur Drug Screen Comment 04/14/21 04/14/21 14:15 14:15 WBC RBC Hgb Hct MCV MCH MCHC RDW Std Deviation RDW Coeff of Irena Plt Count MPV Immature Gran % (Auto) Neut % (Auto) Lymph % (Auto) [place] % (Auto) Eos % (Auto) Baso % (Auto) Absolute Neuts (auto) Absolute Lymphs (auto) Nucleated RBC % Sodium 137 Potassium 3.4 L Chloride 104 Carbon Dioxide 22.0 Anion Gap 11 BUN 10 Creatinine 0.73 Estim Creat Clear Calc 97.45 Est GFR (MDRD) Af Amer 125 Est GFR (MDRD) Non-Af 103 BUN/Creatinine Ratio 13.8 Glucose 114 H Lactic Acid 1.7 Calcium 9.9 Total Bilirubin 0.90 AST 58 H ALT 120 H Alkaline Phosphatase 128 H Total Protein 8.2 Albumin 3.2 Globulin 5.0 H Albumin/Globulin Ratio 0.6 L Lipase 163 Urine Color Urine Clarity Urine pH Ur Specific Secor Urine Protein Urine Glucose (UA) Urine Ketones Urine Occult Blood Urine Nitrite Urine Bilirubin Urine Urobilinogen Ur Leukocyte Esterase Urine RBC Urine WBC Ur Squamous Epith Cells Urine Bacteria Urine Mucus Urine Opiates Screen Urine Methadone Screen Ur Barbiturates Screen Ur Phencyclidine Scrn Ur Amphetamines Screen U Methamphetamin-MDMA U Benzodiazepines Scrn Urine Cocaine Screen U Cannabinoids Screen Ur Drug Screen Comment Discharge Plan Triage Chief Complaint: Nausea/Vomiting ED Provider: Keven Mack Dx/Rx/DC Orders Clinical Impression: Hyperemesis gravidarum, Mild tetrahydrocannabinol (THC) abuse, Abdominal pain Prescriptions: No Action promethazine 25 mg suppository 25 mg AR Q6H PRN (Reason: nausea and vomiting) Qty: 24 RF: 3 metoclopramide HCl [Reglan] 10 mg tablet 10 mg PO Q6H PRN (Reason: nausea and vomiting) Qty: 30 RF: 0 ondansetron 4 mg tablet,disintegrating 4 mg PO Q8H PRN (Reason: nausea and vomiting) Qty: 30 RF: 3 promethazine 25 mg tablet 25 mg PO PRN PRN (Reason: Nausea) RF: 0 famotidine [Pepcid] 20 mg tablet 20 mg PO DAILY Qty: 30 RF: 6 Primary Care Provider: May Kirkpatrick NP Referrals: May Kirkpatrick REGIONAL REHABILITATION DIRECTOR, REGIONAL REHABILITATION DIRECTOR-C [Primary Care Provider] - Disposition Disposition: Acute Care Hospital [facility]
[2021-04-14] MEDS: DiphenhydrAMINE 50 MG/ML Syringe 25 MG IV (14:19)
[2021-04-14] MEDS: Metoclopramide 10 MG/2 ML Vial IV (14:19)
[2021-04-14] MEDS: dexAMETHasone 10 MG/ML Vial IV (14:19)
[2021-04-14 14:20] LABS: Red Blood Cells-Urine 0 SEEN /hpf (0-5)
[2021-04-14] MEDS: 0.9% Normal Saline 1,000 ML 1000 ML IV (14:20)
[2021-04-14 14:23] LABS: Absolute Lymphocyte Count 0.83 X10^3/uL (0.83-4.51); Absolute Neutrophil Count 14.5 X10^3/uL (2.0-7.7); Basophil# 0.03 X10^3/uL; Basophil% 0.2 % (0-1); Eosinophil# 0.01 X10^3/uL; Eosinophils% 0.1 % (0-5); Hematocrit 37.6 % (37-47); Hemoglobin 12.4 g/dL (12.0-15.0); Lymphocyte # 0.83 X10^3/ul (0.83-4.51); Lymphocyte % 5.3 % (19-41); Mean Corpuscular Volume 90.8 fL (81-99); Mean Platelet Vol. 9.6 fl (6.2-12.0); Monocyte# 0.32 X10^3/uL; NRBC Flagged by Analyzer 0 % (0-5); Neutrophil # 14.52 X10^3/uL (2.7-7.7); Neutrophil % 92.1 % (47-70); Platelet Count 395 K/mm3 (150-450); RBC Distribution Width CV 13.5 % (11.6-14.6); RBC Distribution Width SD 44.7 fl (35.1-43.9); Red Blood Count 4.14 M/mm3 (4.2-5.4); White Blood Count 15.8 K/mm3 (4.4-11.0)
[2021-04-14 14:25] LABS: Color, Urine Yellow (Yellow); Glucose, Dipstick Normal (Normal); Leukocyte Esterase-Dipstick 500 /ul (Negative); Nitrite-Dipstick Negative (Negative); Occult Blood-Urine Negative /ul (Negative); Protein-Dipstick 30 mg/dl (Negative); Specific Gravity, Urine 1.025 (1.002-1.030); Urine Clarity Cloudy (Clear); Urine Urobilinogen 4 mg/dl (Normal)
[2021-04-14 14:26] LABS: Urine Bilirubin Dipstick 1 mg/dL (Negative)
[2021-04-14 14:27] LABS: Ketone-Dipstick 150 mg/dl (Negative)
[2021-04-14 14:32] LABS: Bacteria 1+ /hpf (None Seen); Mucous, Urine 2+ /hpf (<or=2+); Squamous Epithelial Cells - UA 0-5 SEEN /hpf (5-10); White Blood Cells 5-10 SEEN /hpf (0-5)
[2021-04-14 14:39] LABS: ALB/GLOB Ratio 0.6 RATIO (0.9-2.4); AST(SGOT) 58 U/L (15-37); Alanine Aminotransfer ALT/SGPT 120 U/L (13-56); Albumin, Serum 3.2 g/dL (3.2-5.0); Alkaline Phosphatase 128 U/L (45-117); Anion Gap 11 (5-15); BUN 10 mg/dL (7-18); BUN/Creat Ratio 13.8 RATIO (10-20); Calcium,Total 9.9 mg/dL (8.5-10.1); Chloride 104 mmol/L (98-107); Creatinine, Serum 0.73 mg/dL (0.55-1.02); EST Glomerular Filtration Rate 103 mL/min (>60); Est Glom Filt Rate - Afr Amer 125 mL/min (>60); Estimated Creatinine Clearance 97.45 ml/min; Glucose 114 mg/dL (74-106); Lipase 163 U/L (73-393); Potassium 3.4 mmol/L (3.5-5.1); Protein, Total 8.2 g/dL (6.4-8.2); Sodium Level 137 mmol/L (136-145)
[2021-04-14 14:41] LABS: Amphetamine Urine VISTA NEGATIVE (<1000 ng/mL); Barbiturate Urine VISTA NEGATIVE (< 200 ng/mL); Benzodiazepine Urine VISTA NEGATIVE (< 200 ng/mL); Cocaine Urine VISTA NEGATIVE (< 300 ng/mL); Ecstacy Urine VISTA NEGATIVE (< 500 ng/mL); Methadone Urine VISTA NEGATIVE (< 300 ng/mL); PCP Urine VISTA NEGATIVE (< 25 ng/mL); THC Urine VISTA POSITIVE (< 50 ng/mL); Vista UDS pH Range 5
[2021-04-14 14:49] LABS: Lactic Acid 1.7 mmol/L (0.4-1.9)
[2021-04-14] MEDS: proCHLORPERazine 10 MG/2 ML Vial IV ×2 (15:31→17:31)
--- NOTE | 2021-04-14 15:32 | CT_ITS ---
STUDY: CT ABDOMEN AND PELVIS WITH CONTRAST REASON FOR EXAM: Female, 25 years old. abdominal pain RADIATION DOSAGE (If Supplied By Facility): CTDIvol = ( 21.53 ) mGy, DLP = ( 1014.08 ) mGycm TECHNIQUE: Transaxial images were obtained from the dome of the diaphragm to the symphysis pubis without oral contrast. Oral and amp; IV Gastrografin and amp; 100mL Isovue-300 was administered. Sagittal and coronal images were reconstructed. Individualized dose optimization techniques were used for this CT. COMPARISON: None. FINDINGS: The visualized lung bases are unremarkable. The visualized portions of the heart are within normal limits. Mild fatty infiltrated liver without mass or bile duct dilatation Normal gallbladder and extrahepatic biliary system. Normal spleen. Normal pancreas. Normal bilateral adrenal glands. Normal right kidney. Normal left kidney. Normal visualized stomach. Normal small intestine. Normal colon. No evidence for acute appendicitis Normal abdominal aorta. Normal inferior vena cava. Normal retroperitoneum. Uterus is enlarged containing intrauterine gestation with fetus in cephalic lie depressing the dome of the bladder Normal abdominal wall. Normal osseous structures. CT/Abdomen/Pelvis WITH Contrast IMPRESSION: Mild nonspecific fatty infiltration of liver.. No evidence for small bowel obstruction. No evidence for acute appendicitis No definitive evidence for acute pancreatitis Enlarged uterus containing fetus currently in cephalic lie Electronically Signed: Kale Higginbotham MD at 20:11 EST , Service support ,
--- NOTE | 2021-04-14 15:32 | NURSING ---
MED SURG MARCANTHONY HYPEREMESIS GRAVIDORUM, THC ABUSE
[2021-04-14] MEDS: Morphine 4 MG/ML Syringe IV (15:42)
[2021-04-14 15:45] VITALS: BP 148/84; PULSE 88; RESP 16; TEMP 36.6
[2021-04-14 16:12] VITALS: BP 131/69; PULSE 101; RESP 18; TEMP 36.6; O2SAT 100
[2021-04-14 16:13] VITALS: BMI 37.5
--- NOTE | 2021-04-14 16:26 | PCS.PANDOC ---
PANDEMIC DOCUMENTATION INITIATED: Date: 04/14/21 Time: 9216
--- NOTE | 2021-04-14 17:27 | NURSING ---
[place] FHT 136 per [facility] OB-RN
[2021-04-14] MEDS: Ondansetron 4 MG/2 ML Vial IV ×2 (17:31→21:19)
--- NOTE | 2021-04-14 18:46 | HP.PCM.OB_ITS ---
HPI - General General Date of Admission: 04/14/21 HPI Narrative BILLY WILSON, is a 25 F who presents with recurrent HG. she states she has been taking phenergan zofran and reglan at home which was not what was prescribed upon discharge from her last admission here. she didn't fu in the office because she states she was in [place]. she had worsening N/V until she presented to ED today and is now admitted. Maternal Data Information LUPIS Calculator Estimated Delivery Date Method Current WG Current Estimate 09/18/21 LMP (Certain) 17w 4d PFSH PFSH Medical History (Updated 04/14/21 @ 18:[address] Janay Suh MD) Hyperemesis gravidarum Marijuana abuse Home Medications metoclopramide HCl [Reglan] 10 mg PO Q6H PRN #30 tab 03/24/21 [Rx Last Taken 04/14/21 09:00] ondansetron 4 mg PO Q8H PRN #30 tab 03/24/21 [Rx Last Taken 04/14/21 09:00] promethazine 25 mg [place] Q6H PRN #24 ea 03/24/21 [Rx Last Taken 04/14/21 10:00] promethazine 25 mg PO PRN PRN 03/25/21 [History Last Taken 04/14/21 09:00] famotidine [Pepcid] 20 mg PO DAILY 04/14/21 [History Last Taken 04/14/21 08:00] Allergy/AdvReac Type Severity Reaction Status Date / Time mushroom Allergy Anaphylaxis Verified 04/14/21 16:20 Family History Mother Cancer Grandmother Cancer Social History (Updated 04/14/21 @ 16:19 by Idalia Price) Smoking Status: Never smoker alcohol intake: never substance use type: does not use and marijuana caffeine: No what type of physical activity do you participate in: none seatbelt use: always do you feel safe at home: Yes additional social history: Dylon History 2 Elective abortions Hx Para 1 Spontaneous abortions Hx # Term Pregnancies Ectopic pregnancies Hx # Pregnancies Multiple births # of living children Past Pregnancies Del. Date Name GA/Weeks Outcome Route Bth Weight Infant Gen Labor Lgth Anesthesia Del Locatn Provider FOB 02/28/17 [place] 39 live - full term Delivery Date: 02/28/17 hyperemesis gravidarum Janay Suh Visit Details Expected Delivery Route/Plan Labor Preferences- CB/BF classes: [] labor support person: [] labor intervention preferences: [] pain management options preferred: [] cut cord/dad catch: [] : [] PP control planned: [] discussed possible routes of delivery and associated risks: [] special requests: [] Plans Covid status: [] Flu vaccine: [] Tdap vaccine: [] Rhogam: [] LARC form signed: [] Problem list reviewed and updated with the most current plan of care details and appropriate orders placed. Relevant counseling for the gestational age provided. Continue routine care and follow up unless otherwise noted in visit notes/problem list details OB Flowsheet Initial Weight: Not Recorded Date -?-?-?-?-?-?-?-?-?-?-?-?- EGA Weight BP Urine Prot -?-?-?-?-?-?-?-?-?-?--?-?- Glucose FHR FuHt Pres Dilation -?-?-?-?-?-?-?-?-?-?-?-?- Effaced St Visit Note 03/21/21 -?-?-?-?-?-?-?-?-?-?-?-?- 14w 1d 220 lb 122/84 -?-?-?-?-?-?-?-?-?-?-?-?- -?-?-?-?-?-?-?-?-?-?-?-?- Direct admit to labor and delivery for IV fluids plan [facility] consult 03/25/21 -?-?-?-?-?-?-?-?-?-?-?--?- 15w 0d 218 lb 212 lb 11.937 oz 212 lb 11.937 oz 120/84 121/86 115/98 115/98 141/80 123/79 118/82 131/82 125/77 116/68 96/53 109/62 -?-?-?-?-?-?-?-?-?-?-?-?- -?-?-?-?-?-?-?-?-?-?-?-?- 04/14/21 -?-?-?-?-?-?-?-?-?-?-?-?- 17w 4d 220 lb 211 lb 13.828 oz 142/91 142/91 148/84 131/69 30 mg/dl (Negative) H -?-?-?-?-?-?-?-?-?-?-?-?- 136 -?-?-?-?-?-?-?-?-?-?-?-?- ROS Review of Systems ROS Unobtainable: due to mental status and other Constitutional Constitutional: Reports systems reviewed and no addt'l complaints, except as documented, fatigue and weakness; Denies as per HPI, fever(s), malaise or other Eyes Eyes: Reports systems reviewed and no addt'l complaints, except as documented; Denies as per HPI, change in vision or other ENT HEENT: Reports as per HPI; Denies dizziness, dry mouth, headache(s), loss taste/smell, nasal congestion, nasal discharge, neck pain, sore throat or other Respiratory/Chest Respiratory/Chest: Reports systems reviewed and no addt'l complaints, except as documented and dyspnea on exertion Gastrointestinal Gastrointestinal: Reports systems reviewed and no addt'l complaints, except as documented, abdominal pain, nausea and vomiting Musculoskeletal Musculoskeletal: Reports systems reviewed and no addt'l complaints, except as documented; Denies back pain or joint pain Neurologic Neurologic: Reports systems reviewed and no addt'l complaints, except as documented Psychiatric Psychiatric: Reports systems reviewed and no addt'l complaints, except as documented Endocrine Endocrinology: Reports systems reviewed and no addt'l complaints, except as documented Hematologic/Lymphatic Hematologic/Lymphatic: Reports systems reviewed and no addt'l complaints, except as documented Vital Signs Vital Signs Vital Signs: 04/14/21 12:49 04/14/21 12:51 04/14/21 15:45 Temperature 97.6 F L 97.6 F L 98 F Temperature Source Temporal Temporal Temporal Pulse Rate 78 78 88 Respiratory Rate 16 16 16 Blood Pressure 142/91 H 142/91 H 148/84 H Blood Pressure Mean 108 108 105 Blood Pressure Source Blood Pressure Position Blood Pressure Location Pulse Ox 97 97 Oxygen Delivery Method Room Air Room Air Room Air 12/31/21 16:12 Temperature 97.8 F Temperature Source Oral Pulse Rate 101 H Respiratory Rate 18 Blood Pressure 131/69 H Blood Pressure Mean 89 Blood Pressure Source Monitor Blood Pressure Position Semi-Fowlers Blood Pressure Location Right Arm Pulse Ox 100 Oxygen Delivery Method Room Air Weight Weight: 211 lb 13.828 oz Body Mass Index (BMI) 37.5 Physical Exam Const alert, oriented x3, no apparent distress and healthy appearing General Appearance: cooperative; Negative for anxious HEENT normocephalic Face and Sinus: normal facial exam Eyes EOMs intact bilaterally and no scleral icterus General Eye: normal appearance of both eyes Neck full ROM and supple Lymph Lymphatic: no lymphadenopathy noted Chest Chest: abnormal inspection of the chest Resp normal respiratory effort Effort and Inspection: able to speak in complete sentences Cardio regular rate GI soft to palpation and non-tender Palpation: soft; Negative for tender external exam normal Back/Spine no CVA tenderness Extremity normal to inspection, full ROM and no clubbing, cyanosis or edema General Extremity: Negative for calf tenderness or edema Skin Lesions: no lesions Rashes: no rashes Psych mental status grossly normal Labs Labs Labs: Blood Type AB POSITIVE Hct 37.6 % (37-47) Hgb 12.4 g/dL (12.0-15.0) Obstetrics US Hep Bs Antigen Negative (Negative) Assessment & Plan (1) Supervision of high-risk : COMMENT: LUPIS 09/18/21 [facility] (2) : COMMENT: DANIEL [place] (3) Obesity affecting : COMMENT: hga1c checked. (4) Adverse effect of synthetic cannabinoid: COMMENT: still using a bowl a day. discussed risks and side effects, may be causing current symptoms. (5) Elevated liver enzymes: COMMENT: improving lfts this admission. neg hep panel, nl glucose. nl RUQ us. likely sec to HG, continue to follow. GI consult will follow up as OP (6) Hyperemesis gravidarum: COMMENT: hasn't been taking medications as perscribed at home. originally ordered steroid pack plus reglan and zofran scheduled, pepcid. compazine PRN. [facility] consult for reglan pump and IVFs. (7) Abdominal pain: COMMENT: may be due to HG or THC, ct abdomen ordered this admission due to leukocytosis. (8) Non compliance with medical treatment: COMMENT: patient admitted to hospital for HG and then didn't return office calls or fu in office for 3 weeks. patient states she was in [place]. upon readmission was not taking medications as prescribed upon discharge. Charges/Coding Visit Charges OBSV E&M: 32522 Initial observation care L3
[2021-04-14] MEDS: 0.9% Saline Lock 10 ML Syringe IV (18:58)
[2021-04-14] MEDS: Acetaminophen 500 MG Tablet 1000 MG PO (20:16)
[2021-04-14 20:21] VITALS: BP 122/69; PULSE 96; RESP 16; TEMP 36.8; O2SAT 96
[2021-04-14] MEDS: MethylPREDNISolone DosePak 4 MG BOX PO (21:21)
[2021-04-15] MEDS: proCHLORPERazine 10 MG/2 ML Vial IV ×2 (00:17→05:40)
[2021-04-15] MEDS: Ondansetron 4 MG/2 ML Vial IV ×2 (02:35→05:40)
[2021-04-15 02:40] VITALS: BP 126/70; PULSE 83; RESP 16; TEMP 36.7; O2SAT 98
--- NOTE | 2021-04-15 05:48 | NURSING ---
notified that AM FHT was 145 per OB RN
[2021-04-15 06:44] LABS: Hematocrit 32.4 % (37-47); Hemoglobin 10.9 g/dL (12.0-15.0); Mean Corp Hgb Conc 33.6 g/dL (32-36); Mean Corpuscular Hgb 30.7 pg (27.0-32.0); Mean Corpuscular Volume 91.3 fL (81-99); Mean Platelet Vol. 9.8 fl (6.2-12.0); Platelet Count 314 K/mm3 (150-450); RBC Distribution Width CV 13.6 % (11.6-14.6); RBC Distribution Width SD 45.2 fl (35.1-43.9); Red Blood Count 3.55 M/mm3 (4.2-5.4); White Blood Count 13.6 K/mm3 (4.4-11.0)
[2021-04-15 07:10] LABS: ALB/GLOB Ratio 0.6 RATIO (0.9-2.4); AST(SGOT) 52 U/L (15-37); Alanine Aminotransfer ALT/SGPT 104 U/L (13-56); Albumin, Serum 2.5 g/dL (3.2-5.0); Alkaline Phosphatase 105 U/L (45-117); Anion Gap 7 (5-15); BUN 5 mg/dL (7-18); BUN/Creat Ratio 8.7 RATIO (10-20); Calcium,Total 8.7 mg/dL (8.5-10.1); Chloride 105 mmol/L (98-107); Creatinine, Serum 0.57 mg/dL (0.55-1.02); EST Glomerular Filtration Rate 136 mL/min (>60); Est Glom Filt Rate - Afr Amer 165 mL/min (>60); Estimated Creatinine Clearance 124.81 ml/min; Globulin 4.3 g/dL (2.2-4.2); Glucose 154 mg/dL (74-106); Potassium 3.9 mmol/L (3.5-5.1); Protein, Total 6.8 g/dL (6.4-8.2); Sodium Level 134 mmol/L (136-145)
[2021-04-15 07:44] VITALS: BP 112/66; PULSE 85; RESP 16; TEMP 36.7; O2SAT 97
[2021-04-15] MEDS: MethylPREDNISolone DosePak 4 MG BOX PO ×2 (07:47→12:02)
--- NOTE | 2021-04-15 08:41 | PCM.PN.OB ---
Subjective Subjective nausea stable and no emesis since yesterday. co heartrburn. no abdominal pain passing gas and urinating. Objective Data Objective Data Vital Signs: Vital Signs Temp Pulse Resp BP Pulse Ox 98.0 F 85 16 112/66 97 04/15/21 07:44 04/15/21 07:44 04/15/21 07:44 04/15/21 07:44 04/15/21 07:44 Oxygen Delivery Method Room Air Weight: 211 lb 13.828 oz Body Mass Index (BMI) 37.5 Intake & Output: Intake and Output for Last 24 Hours 04/13/21 04/14/21 04/15/21 23:59 23:59 23:59 Intake Total 1050 / 1250 1152.08 / 1152.08 Output Total Balance 1020 / 1220 1152.08 / 1152.08 Lab / Micro Data Result Diagrams: 04/15/21 06:00 04/15/21 06:00 Labs: Laboratory Results - last 24 hr 04/14/21 14:10: Urine Opiates Screen NEGATIVE, Urine Methadone Screen NEGATIVE, Ur Barbiturates Screen NEGATIVE, Ur Phencyclidine Scrn NEGATIVE, Ur Amphetamines Screen NEGATIVE, U Methamphetamin-MDMA NEGATIVE, U Benzodiazepines Scrn NEGATIVE, Urine Cocaine Screen NEGATIVE, U Cannabinoids Screen POSITIVE H, Ur Drug Screen Comment 04/14/21 14:10: Urine Color Yellow, Urine Clarity Cloudy, Urine pH 6.0, Ur Specific [place] 1.025, Urine Protein 30 H, Urine Glucose (UA) Normal, Urine Ketones 150 A*, Urine Occult Blood Negative, Urine Nitrite Negative, Urine Bilirubin 1 H, Urine Urobilinogen 4 H, Ur Leukocyte Esterase 500 H, Urine RBC 0 SEEN, Urine WBC 5-10 SEEN, Ur Squamous Epith Cells 0-5 SEEN, Urine Bacteria 1+, Urine Mucus 2+ 04/14/21 14:15: WBC 15.8 H, RBC 4.14 L, Hgb 12.4, Hct 37.6, MCV 90.8, MCH 30.0, MCHC 33.0, RDW Std Deviation 44.7 H, RDW Coeff of Irena 13.5, Plt Count 395, MPV 9.6, Immature Gran % (Auto) 0.300, Neut % (Auto) 92.1 H, Lymph % (Auto) 5.3 L, [place] % (Auto) 2.0, Eos % (Auto) 0.1, Baso % (Auto) 0.2, Absolute Neuts (auto) 14.5 H, Absolute Lymphs (auto) 0.83, Nucleated RBC % 0 04/14/21 14:15: Sodium 137, Potassium 3.4 L, Chloride 104, Carbon Dioxide 22.0, Anion Gap 11, BUN 10, Creatinine 0.73, Estim Creat Clear Calc 97.45, Est GFR (MDRD) Af Amer 125, Est GFR (MDRD) Non-Af 103, BUN/Creatinine Ratio 13.8, Glucose 114 H, Calcium 9.9, Total Bilirubin 0.90, AST 58 H, ALT 120 H, Alkaline Phosphatase 128 H, Total Protein 8.2, Albumin 3.2, Globulin 5.0 H, Albumin/Globulin Ratio 0.6 L, Lipase 163 04/14/21 14:15: Lactic Acid 1.7 04/15/21 06:00: WBC 13.6 H, RBC 3.55 L, Hgb 10.9 L, Hct 32.4 L, MCV 91.3, MCH 30.7, MCHC 33.6, RDW Std Deviation 45.2 H, RDW Coeff of Irena 13.6, Plt Count 314, MPV 9.8 04/15/21 06:00: Sodium 134 L, Potassium 3.9, Chloride 105, Carbon Dioxide 22.0, Anion Gap 7, BUN 5 L, Creatinine 0.57, Estim Creat Clear Calc 124.81, Est GFR (MDRD) Af Amer 165, Est GFR (MDRD) Non-Af 136, BUN/Creatinine Ratio 8.7 L, Glucose 154 H, Calcium 8.7, Total Bilirubin 0.60, AST 52 H, ALT 104 H, Alkaline Phosphatase 105, Total Protein 6.8, Albumin 2.5 L, Globulin 4.3 H, Albumin/Globulin Ratio 0.6 L Radiography Diagnostic Testing: Radiology Impression Abdomen/Pelvis CT 04/14/21 15:32 IMPRESSION: Mild nonspecific fatty infiltration of liver.. No evidence for small bowel obstruction. No evidence for acute appendicitis No definitive evidence for acute pancreatitis Enlarged uterus containing fetus currently in cephalic lie Electronically Signed: Kale Higginbotham MD at 20:11 EST , Service support , ROS Review of Systems ROS Unobtainable: due to mental status and other Constitutional Constitutional: Reports systems reviewed and no addt'l complaints, except as documented and fatigue; Denies as per HPI, fever(s), malaise, weakness or other ENT HEENT: Reports as per HPI and dizziness; Denies dry mouth, headache(s), loss taste/smell, nasal congestion, nasal discharge, neck pain, sore throat or other Respiratory/Chest Respiratory/Chest: Reports systems reviewed and no addt'l complaints, except as documented Gastrointestinal Gastrointestinal: Reports systems reviewed and no addt'l complaints, except as documented and nausea; Denies vomiting Physical Exam Const alert, oriented x3 and no apparent distress HEENT normocephalic Head and Scalp: atraumatic Neck full ROM, no lymphadenopathy, supple and thyroid normal General: trachea midline Lymph Lymphatic: no lymphadenopathy noted Cardio regular rhythm Back/Spine no CVA tenderness Extremity normal to inspection Skin no rashes or lesions noted Psych mental status grossly normal Assessment & Plan (1) Non compliance with medical treatment: COMMENT: patient admitted to hospital for HG and then didn't return office calls or fu in office for 3 weeks. patient states she was in [place]. upon readmission was not taking medications as prescribed upon discharge. (2) Supervision of high-risk : COMMENT: LUPIS 09/18/21 PC Hanna (3) : COMMENT: [facility] (4) Obesity affecting : COMMENT: hga1c checked. (5) Adverse effect of synthetic cannabinoid: COMMENT: still using a bowl a day. discussed risks and side effects, may be causing current symptoms. (6) Elevated liver enzymes: COMMENT: improving lfts this admission. neg hep panel, nl glucose. nl RUQ us. likely sec to HG, continue to follow. GI consult will follow up as OP (7) Hyperemesis gravidarum: COMMENT: pepcid, zofran and compazine scheduled, reglan PRN. dc home plan OP fluids saturday. [facility] consult for reglan pump and IVFs. (8) Abdominal pain: COMMENT: may be due to HG or THC, ct abdomen ordered this admission due to leukocytosis. PLAN: oral medication control today and if tolerates, dc home Charges/Coding Visit Charges OBSV E&M: 82879 Observation care discharge
--- NOTE | 2021-04-15 09:14 | PCM.DC ---
Discharge Instructions Follow Up Care Test Results: Test results from this visit will be discussed in further detail at your follow-up appointment, if applicable. Discharge Plan Admission Admit Date/Time: 04/14/21 17:08 Primary Reason for Your Visit: hyperemesis Attending Provider: Janay Suh Primary Care Provider: Chelsea Gonzalez Primary Instructions Additional Instructions / Restrictions: take zofran, meclizine, and pepcid scheduled. take reglan and phenergan as needed for breakthrough nausea and vomiting. follow up in office next week, plan on outpatient IV fluids saturday, await [facility] health consult for continue IV fluids. Discharge Orders/Prescriptions Prescriptions: New meclizine 25 mg tablet 25 mg PO TID Qty: 90 RF: 3 Continued promethazine 25 mg suppository 25 mg [place] Q6H PRN (Reason: nausea and vomiting) Qty: 24 RF: 3 metoclopramide HCl [Reglan] 10 mg tablet 10 mg PO Q6H PRN (Reason: nausea and vomiting) Qty: 30 RF: 0 promethazine 25 mg tablet 25 mg PO PRN PRN (Reason: Nausea) RF: 0 famotidine [Pepcid] 20 mg tablet 20 mg PO DAILY RF: 0 Changed ondansetron 4 mg tablet,disintegrating 4 mg PO Q8H Qty: 30 RF: 3 Referrals / Follow Up: Care Physician,No Primary [Primary Care Provider] - May Kirkpatrick NP, NEURODIAGNOSTIC TECHNOLOGIST-C [Nurse Practitioner] - Disposition Disposition (needs filled in before D/C Order can be placed): Home, Self Care
[2021-04-15] MEDS: 0.9% Saline Lock 10 ML Syringe IV (11:59)
[2021-04-15] MEDS: Meclizine HCl 25 MG Tablet PO (12:02)
[2021-04-15] MEDS: Ondansetron 8 MG Tablet PO (12:02)
[2021-04-15 12:34] VITALS: BP 125/73; PULSE 109; RESP 16; TEMP 36.6; O2SAT 100
== END 2021-04-15 13:00 | disposition home or self-care (01) ==
LOC: ED 15:27 → MS3 18:13
PROVIDERS: Admitting Provider Obstetrics & Gynecology; Emergency Provider Emergency Medicine; Visit Provider Obstetrics & Gynecology
DX: O21.0 Mild hyperemesis gravidarum (principal); K86.1 Other chronic pancreatitis; Z91.19 Patient's noncompliance with other medical treatment and regimen; F12.10 Cannabis abuse, uncomplicated; O99.322 Drug use complicating pregnancy, second trimester; Z3A.18 18 weeks gestation of pregnancy; O99.212 Obesity complicating pregnancy, second trimester; O99.612 Diseases of the digestive system complicating pregnancy, second trimester; Z86.16 Personal history of COVID-19; E66.9 Obesity, unspecified
CPT/HCPCS: 36415; 74177; 80053; 80307; 81001; 83605; 83690; 85025; 85027; 96361; 96374; 96375; 96376; 99218; 99283; J7030; Q9967; A4216; G0378; J2405

== ENCOUNTER 2021-04-17 13:10 | Outpatient (CLI) | payer SELFPAY ==
[2021-04-17 13:49] VITALS: BP 113/62; PULSE 100; RESP 16; O2SAT 100; BMI 38.4
[2021-04-17] MEDS: 0.9% NaCl Peripheral Flush Adult/Peds IV ×2 (13:55→15:16)
[2021-04-17] MEDS: Dextrose 5%-Lactated Ringers 1,000 ML 999 ML IV (13:57)
[2021-04-17] MEDS: Ondansetron 4 MG/2 ML Vial IV (13:57)
[2021-04-17] MEDS: proCHLORPERazine 10 MG/2 ML Vial IV (15:16)
[2021-04-17 15:21] VITALS: BP 132/69; PULSE 91; RESP 16; O2SAT 100
== END 2021-04-17 23:59 | disposition home or self-care (01) ==
PROVIDERS: Referring Provider Obstetrics & Gynecology; Visit Provider Obstetrics & Gynecology
DX: J45.50 Severe persistent asthma, uncomplicated (principal)
CPT/HCPCS: 96372; A4216; J2405

== ENCOUNTER 2021-04-22 06:13 | Emergency (ER) | payer SELFPAY ==
[2021-04-22 06:14] VITALS: BP 136/89; PULSE 106; RESP 17; TEMP 36.3; O2SAT 98; BMI 38.0
--- NOTE | 2021-04-22 06:39 | US_ITS ---
STUDY: LIMITED SECOND AND THIRD TRIMESTER OBSTETRICAL ULTRASOUND REASON FOR EXAM: Female, 25 years old hyperemesis, abdominal pain, possible torsion LMP: 12/12/2020 TECHNIQUE: Transabdominal TECHNICAL QUALITY: Adequate. PRIOR ULTRASOUND: 03/21/2021 FINDINGS: There is a single intrauterine fetus. The fetus is in a breech presentation. There is demonstrated cardiac activity with a heart rate of 154 bpm. There is a normal amniotic fluid volume. The largest amniotic fluid pocket measures 5 cm. The amniotic is not measured. The placenta is anterior in location and is not low lying. There are Grade 0 placental changes. The cervix measures 3 cm in length. The right ovary measures 3.9 x 1.4 x 2.6 cm. Venous and arterial flow is seen in the right ovary. The left ovary measures 3.2 x 2.8 x 1.4 cm. Venous flow seen in the left ovary. Arterial flow suboptimally visualized. There is a 1.2 cm follicle in the left ovary. measurements were not obtained. US/OB Limited (No Biometrics) IMPRESSION: Single live intrauterine fetus in breech presentation. Flow seen in both ovaries. Electronically Signed: Josue Conway, at 8:36 EST Tel , Service support ,
[2021-04-22] MEDS: 0.9% Normal Saline 1,000 ML 1000 ML IV (06:59)
[2021-04-22] MEDS: proMETHazine 25 MG/ML Syringe 12.5 MG IV (06:59)
[2021-04-22] MEDS: Morphine 4 MG/ML Syringe IV (07:00)
[2021-04-22 07:05] LABS: Absolute Lymphocyte Count 1.69 X10^3/uL (0.83-4.51); Absolute Neutrophil Count 9.9 X10^3/uL (2.0-7.7); Basophil# 0.02 X10^3/uL; Basophil% 0.2 % (0-1); Hematocrit 38.4 % (37-47); Hemoglobin 12.6 g/dL (12.0-15.0); Lymphocyte # 1.69 X10^3/ul (0.83-4.51); Mean Corp Hgb Conc 32.8 g/dL (32-36); Mean Corpuscular Hgb 30.1 pg (27.0-32.0); Mean Corpuscular Volume 91.9 fL (81-99); Mean Platelet Vol. 10.1 fl (6.2-12.0); Monocyte# 0.45 X10^3/uL; Monocyte% 3.7 % (0-10); NRBC Flagged by Analyzer 0 % (0-5); Neutrophil % 81.8 % (47-70); Platelet Count 339 K/mm3 (150-450); RBC Distribution Width CV 13.5 % (11.6-14.6); RBC Distribution Width SD 45.4 fl (35.1-43.9); Red Blood Count 4.18 M/mm3 (4.2-5.4); White Blood Count 12.1 K/mm3 (4.4-11.0)
[2021-04-22 07:16] LABS: Anion Gap 11 (5-15); BUN 15 mg/dL (7-18); BUN/Creat Ratio 19.9 RATIO (10-20); Calcium,Total 9.5 mg/dL (8.5-10.1); Chloride 103 mmol/L (98-107); Creatinine, Serum 0.76 mg/dL (0.55-1.02); EST Glomerular Filtration Rate 99 mL/min (>60); Est Glom Filt Rate - Afr Amer 119 mL/min (>60); Estimated Creatinine Clearance 93.61 ml/min; Glucose 116 mg/dL (74-106); Potassium 3.6 mmol/L (3.5-5.1); Sodium Level 137 mmol/L (136-145)
--- NOTE | 2021-04-22 07:29 | ED.VIS.FEGU ---
HPI HPI - Female History of Present Illness Chief Complaint: Vag Bld, Preg Narrative Narrative: Patient is a 25-year-old female who is a approximately 18 weeks and 5 days . She states she noticed some lower right-sided abdominal pain on Saturday. She states she has slight spotting with this. She states as time passed the pain increased and she had increased bouts of nausea and vomiting. She also reports that her bleeding became slightly worse than spotting. Secondary to the increased pain and bleeding she presents to the hospital for evaluation. PFSH PFSH Medical History Hyperemesis gravidarum Marijuana abuse Home Medications metoclopramide HCl [Reglan] 10 mg PO Q6H PRN #30 tab 03/24/21 [Rx Last Taken 04/14/21 09:00] famotidine [Pepcid] 20 mg PO DAILY 04/14/21 [History Last Taken 04/14/21 08:00] ondansetron 4 mg PO Q8H #30 tab 04/15/21 [Rx Last Taken 04/14/21 09:00] Allergy/AdvReac Type Severity Reaction Status Date / Time mushroom Allergy Anaphylaxis Verified 04/22/21 06:23 Family History Mother Cancer Grandmother Cancer Social History (Updated 04/14/21 @ 16:19 by Idalia Price) Smoking Status: Never smoker alcohol intake: never substance use type: does not use and marijuana caffeine: No what type of physical activity do you participate in: none seatbelt use: always do you feel safe at home: Yes additional social history: Dylon ROS ROS ED Constitutional Constitutional ED: Denies chills or fever(s) ENT ENT ED: Denies sore throat Cardiovascular Cardiovascular: Denies chest pain Respiratory/Chest Respiratory/Chest: Denies cough or dyspnea Gastrointestinal Gastrointestinal: Reports abdominal pain, nausea and vomiting; Denies diarrhea Genitourinary Genitourinary ED: Reports other Details: Positive vaginal bleeding ; Denies dysuria or hematuria Musculoskeletal Musculoskeletal: Denies myalgias Integumentary Denies rash Neurologic Neurologic: Denies headache(s) Hematologic/Lymphatic Hematologic/Lymphatic: Denies easy bleeding or easy bruising EXAM Physical Exam Const Vital Signs: 04/22/21 06:14 Temperature 97.4 F L Temperature Source Temporal Pulse Rate 106 H Respiratory Rate 17 Blood Pressure 136/89 H Blood Pressure Mean 104 Pulse Ox 98 Oxygen Delivery Method Room Air Positive well nourished, well developed and obese General Appearance ED: well developed Nutritional Appearance: obese HEENT Reports moist mucous membranes Eyes PERRL and EOMs intact bilaterally Neck supple Resp normal respiratory effort and clear to auscultation bilaterally Cardio regular rhythm Rate: tachycardic and other Other Details: Radial pulses are +2-4 bilaterally are equal and symmetric GI non-distended GI Narrative: Abdomen is gravid with fundus consistent with reported gestational age. There is mild pain with palpation diffusely without voluntary guarding or rigidity. Auscultation: normoactive bowel sounds Palpation: soft no CVA tenderness Narrative: External genitalia is normal. Speculum exam reveals a closed cervical os with no dried blood or active bleeding present. Extremity normal to inspection Neuro oriented x3 and CN's II-XII intact bilaterally Sensorium / Orientation: alert Psych Mood & Affect: anxious Skin no rashes or lesions noted Skin Narrative: Skin turgor is normal MDM MDM MDM Narrative Medical decision making narrative: Patient presented to the ER slightly hypertensive and tachycardic but afebrile. Chart review reveals that she has been seen multiple times over the past month for similar event. At this time with her report of pain and some increased spotting I did elect to perform repeat laboratory studies as well as a pelvic ultrasound. I feel that if labs reveal no clinically significant changes in her ultrasound does not show any obvious torsion or signs of demise that patient should be stable for discharge based on the fact she has been work-up for this multiple times without any obvious cause being found. The patient's pelvic exam revealed no acute findings and no active bleeding or dried blood. The preliminary read of her ultrasound is normal with a normal heart rate of the fetus normal blood flow to the ovaries and no placental abruption. Therefore at this time with labs reveal no clinically significant findings patient having no active bleeding or signs of dried blood within the vaginal vault and a normal ultrasound she should be safe for discharge once the official read is resulted. Lab Data Attestation: I reviewed the patient's lab results. Labs: Laboratory Results - last 24 hr 01/08/22 01/08/22 01/08/22 06:34 06:34 06:40 WBC 12.1 H RBC 4.18 L Hgb 12.6 Hct 38.4 MCV 91.9 MCH 30.1 MCHC 32.8 RDW Std Deviation 45.4 H RDW Coeff of Irena 13.5 Plt Count 339 MPV 10.1 Immature Gran % (Auto) 0.300 Neut % (Auto) 81.8 H Lymph % (Auto) 14.0 L [place] % (Auto) 3.7 Eos % (Auto) 0.0 Baso % (Auto) 0.2 Absolute Neuts (auto) 9.9 H Absolute Lymphs (auto) 1.69 Nucleated RBC % 0 Sodium 137 Potassium 3.6 Chloride 103 Carbon Dioxide 23.0 Anion Gap 11 BUN 15 Creatinine 0.76 Estim Creat Clear Calc 93.61 Est GFR (MDRD) Af Amer 119 Est GFR (MDRD) Non-Af 99 BUN/Creatinine Ratio 19.9 Glucose 116 H Calcium 9.5 HCG, Quant 89125 H Discharge Plan Triage Chief Complaint: Vag Bld, Preg ED Provider: Miguel Colon Dx/Rx/DC Orders Clinical Impression: Abdominal pain during in second trimester, Hyperemesis gravidarum Instructions: ED Abdominal Pain Unkn Cause Fem, ED Hyperemesis Gravidarum Prescriptions: No Action metoclopramide HCl [Reglan] 10 mg tablet 10 mg PO Q6H PRN (Reason: nausea and vomiting) Qty: 30 RF: 0 famotidine [Pepcid] 20 mg tablet 20 mg PO DAILY RF: 0 ondansetron 4 mg tablet,disintegrating 4 mg PO Q8H Qty: 30 RF: 3 Primary Care Provider: Care Physician,No Primary Referrals: Care Physician,No Primary [Primary Care Provider] -
[2021-04-22 07:43] LABS: hCG Titer Quant., Serum 13334 mIU/mL (1-3)
--- NOTE | 2021-04-22 08:42 | EDS_ITS ---
HPI HPI - Female History of Present Illness Chief Complaint: Vag Bld, Preg Detail of Chief Complaint: Vaginal bleeding and Informant: patient Narrative Narrative: Care of patient turned over to me by evening physician awaiting pelvic ultrasound results and urinalysis results. Patient apparently started having some mild vaginal bleeding yesterday and she was complaining of pelvic pain. Her lab work-up was unremarkable. Patient was to be discharged home if pelvic ultrasound was unremarkable which it was. Noted was a live intrauterine with heart rate 154 and breech presentation. Normal blood flow to both ovaries. PFSH PFSH Medical History Hyperemesis gravidarum Marijuana abuse Home Medications metoclopramide HCl [Reglan] 10 mg PO Q6H PRN #30 tab 03/24/21 [Rx Last Taken 04/14/21 09:00] famotidine [Pepcid] 20 mg PO DAILY 04/14/21 [History Last Taken 04/14/21 08:00] ondansetron 4 mg PO Q8H #30 tab 04/15/21 [Rx Last Taken 04/14/21 09:00] Allergy/AdvReac Type Severity Reaction Status Date / Time mushroom Allergy Anaphylaxis Verified 04/22/21 06:23 Family History Mother Cancer Grandmother Cancer Social History (Updated 04/14/21 @ 16:19 by Idalia Price) Smoking Status: Never smoker alcohol intake: never substance use type: does not use and marijuana caffeine: No what type of physical activity do you participate in: none seatbelt use: always do you feel safe at home: Yes additional social history: Dylon ROS ROS ED Constitutional Constitutional ED: Reports systems reviewed and no addt'l complaints, except as documented; Denies body ache(s), change in weight or chills Eyes Eyes: Denies acute decrease in peripheral vision, change in vision, double vision or loss of vision ENT ENT ED: Reports none; Denies ear pain, lip swelling, loss taste/smell, neck pain, otalgia or sore throat Cardiovascular Cardiovascular: Reports none; Denies abdominal pain, chest pain with activity, leg edema, lightheadedness, palpitations, rapid heart rate or syncope Respiratory/Chest Respiratory/Chest: Reports none; Denies change in mental status, dry cough, dyspnea, hemoptysis, shortness of breath at rest or shortness of breath with exertion Gastrointestinal Gastrointestinal: Reports none; Denies abdominal pain, change in stool character, diarrhea, hematemesis, hematochezia, melena, rectal bleeding or vomiting Genitourinary Genitourinary ED: Reports none and other Details: Pelvic pain and vaginal bleeding ; Denies abdominal discomfort, anuria, dysuria, genital pain or polyuria Musculoskeletal Musculoskeletal: Reports none; Denies arthralgias, back pain, difficulty walking, extremity pain, muscle weakness or myalgias Integumentary Reports none; Denies abscess or rash Neurologic Neurologic: Reports none; Denies abnormal gait, confusion, focal weakness, frequent falls, headache(s), loss of vision, numbness, paresthesias, radicular pain, vertigo or weakness Psychiatric Psychiatric: Reports systems reviewed and no addt'l complaints, except as documented and none; Denies behavioral changes, confusion, difficulty concentrating, hallucinations, suicidal ideation, tactile hallucinations or visual hallucinations Endocrine Endocrinology: Denies none, cold intolerance, excessive sweating, fatigue or heat intolerance Hematologic/Lymphatic Hematologic/Lymphatic: Reports none; Denies anemia, easy bleeding or easy bruising Allergic/Immunologic Allergic/Immunologic ED: Denies as per HPI, none, lip swelling, mouth swelling, throat swelling, tongue swelling or hives EXAM Physical Exam Const Vital Signs: 04/22/21 06:14 Temperature 97.4 F L Temperature Source Temporal Pulse Rate 106 H Respiratory Rate 17 Blood Pressure 136/89 H Blood Pressure Mean 104 Pulse Ox 98 Oxygen Delivery Method Room Air Positive well nourished and well developed General Appearance ED: well developed and NAD HEENT Reports TM's clear and moist mucous membranes normocephalic and atraumatic; Negative for trauma or tenderness Tympanic Membrane ED: Yes TM's clear Eyes PERRL and EOMs intact bilaterally General Eye ED: Negative for pale conjunctiva or scleral icterus Neck no lymphadenopathy, supple and no JVD General: Negative for tenderness Chest Wall inspection of chest normal and palpation of chest normal Chest: Negative for tenderness Resp normal respiratory effort and clear to auscultation bilaterally Effort and Inspection: Negative for respiratory distress or pain with movement Auscultation: Negative for rhonchi, wheezes or diminished lung sounds Cardio regular rate, regular rhythm, S1 normal heart sound, S2 normal heart sound and no murmurs Peripheral Pulses: pulses 2+ throughout GI normal to inspection, nondistended, normoactive bowel sounds, soft to palpation, non-distended and no masses GI Narrative: Mild diffuse tenderness over lower abdomen. There is no rebound, rigidity, or peritoneal signs. Back/Spine no CVA tenderness and no thoracic nor lumbar tenderness Extremity normal to inspection General Extremety ED: Negative for edema General Extremity: Negative for edema Neuro oriented x3, CN's II-XII intact bilaterally, no sensory deficits noted and gait normal Sensorium / Orientation: awake, alert, oriented to person, oriented to place and oriented to time Motor Exam: strength 5/5 throughout and strength abnormal Psych mental status grossly normal Skin no rashes or lesions noted and no wounds MDM MDM MDM Narrative Medical decision making narrative: Pelvic ultrasound was unremarkable. Lab work was unremarkable. Patient is known to me as I did see the patient little over a week ago for hyperemesis. It was noted at that time the patient did use marijuana frequently. At that time patient was admitted and had a CT scan of her abdomen and pelvis which showed no evidence of appendicitis or any acute disease process otherwise. I discussed results of pelvic ultrasound with [employer] on-call and patient will be discharged to home in stable condition. Patient advised to return if persistent heavy bleeding, worsening abdominal pain, fever, or condition should worsen anyway. I do not feel any further imaging is indicated. Lab Data Attestation: I reviewed the patient's lab results. Labs: Laboratory Results - last 24 hr 04/22/21 04/22/21 04/22/21 06:34 06:34 06:40 WBC 12.1 H RBC 4.18 L Hgb 12.6 Hct 38.4 MCV 91.9 MCH 30.1 MCHC 32.8 RDW Std Deviation 45.4 H RDW Coeff of Irena 13.5 Plt Count 339 MPV 10.1 Immature Gran % (Auto) 0.300 Neut % (Auto) 81.8 H Lymph % (Auto) 14.0 L [place] % (Auto) 3.7 Eos % (Auto) 0.0 Baso % (Auto) 0.2 Absolute Neuts (auto) 9.9 H Absolute Lymphs (auto) 1.69 Nucleated RBC % 0 Sodium 137 Potassium 3.6 Chloride 103 Carbon Dioxide 23.0 Anion Gap 11 BUN 15 Creatinine 0.76 Estim Creat Clear Calc 93.61 Est GFR (MDRD) Af Amer 119 Est GFR (MDRD) Non-Af 99 BUN/Creatinine Ratio 19.9 Glucose 116 H Calcium 9.5 HCG, Quant 51824 H Blood Type 04/22/21 06:40 WBC RBC Hgb Hct MCV MCH MCHC RDW Std Deviation RDW Coeff of Irena Plt Count MPV Immature Gran % (Auto) Neut % (Auto) Lymph % (Auto) [place] % (Auto) Eos % (Auto) Baso % (Auto) Absolute Neuts (auto) Absolute Lymphs (auto) Nucleated RBC % Sodium Potassium Chloride Carbon Dioxide Anion Gap BUN Creatinine Estim Creat Clear Calc Est GFR (MDRD) Af Amer Est GFR (MDRD) Non-Af BUN/Creatinine Ratio Glucose Calcium HCG, Quant Blood Type AB POSITIVE Radiography Diagnostic Testing: Clinical Impression(s) from Imaging Studies Obstetrics Ultrasound 04/22/21 06:39 IMPRESSION: Single live intrauterine fetus in breech presentation. Flow seen in both ovaries. Electronically Signed: Josue Man, at 8:36 EST Tel , Service support , Discharge Plan Triage Chief Complaint: Vag Bld, Preg ED Provider: Miguel Colon Dx/Rx/DC Orders Clinical Impression: Abdominal pain during in second trimester, Hyperemesis gravidarum Instructions: ED Abdominal Pain Unkn Cause Fem, ED Hyperemesis Gravidarum Prescriptions: No Action metoclopramide HCl [Reglan] 10 mg tablet 10 mg PO Q6H PRN (Reason: nausea and vomiting) Qty: 30 RF: 0 famotidine [Pepcid] 20 mg tablet 20 mg PO DAILY RF: 0 ondansetron 4 mg tablet,disintegrating 4 mg PO Q8H Qty: 30 RF: 3 Primary Care Provider: Care Physician,No Primary Referrals: Janay Suh MD [STAFF PHYSICIAN] - 3-5 Days Care Physician,No Primary [Primary Care Provider] - Disposition Disposition: Home, Self Care
[2021-04-22 08:54] LABS: Mucous, Urine 0 SEEN /hpf (<or=2+); Red Blood Cells-Urine 0 SEEN /hpf (0-5)
[2021-04-22 09:02] VITALS: BP 113/61; PULSE 75; RESP 16; O2SAT 99
[2021-04-22 09:03] LABS: Color, Urine Amber (Yellow); Glucose, Dipstick Normal (Normal); Leukocyte Esterase-Dipstick 100 /ul (Negative); Nitrite-Dipstick Positive (Negative); Occult Blood-Urine Negative /ul (Negative); Protein-Dipstick 30 mg/dl (Negative); Specific Gravity, Urine 1.025 (1.002-1.030); Urine Clarity Sl. Cloudy (Clear); Urine Urobilinogen 8 mg/dl (Normal)
[2021-04-22 09:13] LABS: Ketone-Dipstick 150 mg/dl (Negative); Urine Bilirubin Dipstick 3 mg/dL (Negative)
[2021-04-22 09:15] LABS: Bacteria RARE /hpf (None Seen); Squamous Epithelial Cells - UA 0-5 SEEN /hpf (5-10); White Blood Cells 0-5 SEEN /hpf (0-5)
[2021-04-22 09:23] VITALS: BP 124/71; PULSE 64; RESP 15; O2SAT 98
== END 2021-04-22 09:24 | disposition home or self-care (01) ==
PROVIDERS: Emergency Provider Emergency Medicine; Visit Provider Emergency Medicine
DX: O20.9 Hemorrhage in early pregnancy, unspecified (principal); O21.0 Mild hyperemesis gravidarum; O26.892 Other specified pregnancy related conditions, second trimester; R10.2 Pelvic and perineal pain; O99.212 Obesity complicating pregnancy, second trimester; E66.9 Obesity, unspecified; Z3A.18 18 weeks gestation of pregnancy
CPT/HCPCS: 96361; 96374; 96375; 99283; 76815; 80048; 81001; 84702; 85025; 86900; 86901; 87086; 87088; 93976; J7030

== ENCOUNTER 2021-04-22 16:04 | Inpatient (IN) | payer SELFPAY ==
[2021-04-22 16:06] VITALS: BP 126/84; PULSE 99; RESP 14; TEMP 35.9; O2SAT 97; BMI 37.5
--- NOTE | 2021-04-22 16:21 | ED.RN ---
PT. WAS SEEN HERE EARLIER TODAY FOR SAME ISSUES. REPORTS NOT FEELING ANY BETTER.
--- NOTE | 2021-04-22 17:01 | EX.ED.DYSGE1 ---
HPI History of Present Illness Chief Complaint: Nausea/Vomiting Informant: patient Narrative Narrative: This is a G2, P1 female at 18 weeks gestation with a history of hyperemesis gravidarum in both pregnancies. She has been dealing with throughout this also. She was admitted to the hospital in early March. She has been seen here last night/early this morning. She actually had a CAT scan of her abdomen about 1 week ago. She had ultrasound this morning. These have not shown any intra-abdominal pathology. No sign of torsion this morning. Blood work was essentially unremarkable. Patient has been taking Pepcid, Reglan, Zofran, Phenergan, B6. She has been taking suppositories, oral dissolving tablets and tablets. Nothing is really getting this better. She was feeling a bit better when she was here this morning. She went home. Symptoms started up again. She called her OB doctor and they referred her back in for repeat evaluation and treatment. [facility] Medical History Hyperemesis gravidarum Marijuana abuse Home Medications metoclopramide HCl [Reglan] 10 mg PO Q6H PRN #30 tab 03/24/21 [Rx Last Taken 04/14/21 09:00] famotidine [Pepcid] 20 mg PO DAILY 04/14/21 [History Last Taken 04/22/21 09:00] ondansetron 4 mg PO Q8H 04/22/21 [History Last Taken Unknown] Allergy/AdvReac Type Severity Reaction Status Date / Time mushroom Allergy Anaphylaxis Verified 04/22/21 16:06 Family History Mother Cancer Grandmother Cancer Social History Smoking Status: Never smoker alcohol intake: never substance use type: does not use and marijuana caffeine: No what type of physical activity do you participate in: none seatbelt use: always do you feel safe at home: Yes additional social history: Dylon HUFF ED Constitutional Constitutional ED: Denies chills or fever(s) ENT ENT ED: Denies rhinorrhea or sore throat Cardiovascular Cardiovascular: Denies chest pain Respiratory/Chest Respiratory/Chest: Denies cough or dyspnea Gastrointestinal Gastrointestinal: Reports abdominal pain, nausea and vomiting; Denies diarrhea Genitourinary Genitourinary ED: Reports other Details: She did have some bleeding. It was less than spotting. This was evaluated this morning. This has not recurred. ; Denies dysuria or hematuria Musculoskeletal Musculoskeletal: Denies myalgias Integumentary Denies rash Neurologic Neurologic: Denies headache(s) Psychiatric Psychiatric: Denies anxiety or depression Endocrine Endocrinology: Denies polydipsia or polyuria Allergic/Immunologic Allergic/Immunologic ED: Denies mouth swelling or urticaria EXAM Physical Exam Const Vital Signs: 04/22/21 16:06 04/22/21 18:19 04/22/21 18:52 Temperature 96.7 F L 96.7 F L 97.6 F L Temperature Source Temporal Temporal Oral Pulse Rate 99 81 97 Respiratory Rate 14 18 16 Respiratory Effort Respiratory Depth Respiratory Pattern Blood Pressure 126/84 H 108/47 L 124/74 H Blood Pressure Mean 98 67 90 Blood Pressure Source Monitor Blood Pressure Position Semi-Fowlers Blood Pressure Location Right Arm Pulse Ox 97 97 97 Oxygen Delivery Method Room Air Room Air Room Air 04/22/21 19:32 04/22/21 19:48 Temperature Temperature Source Pulse Rate 86 Respiratory Rate Respiratory Effort Normal Non-Labored Respiratory Depth Normal Respiratory Pattern Normal Blood Pressure Blood Pressure Mean Blood Pressure Source Blood Pressure Position Blood Pressure Location Pulse Ox Oxygen Delivery Method Room Air Positive well nourished, well developed and obese General Appearance ED: well developed and NAD Nutritional Appearance: obese HEENT Reports dry mucous membranes Mouth ED: Yes dry mucous membranes Mouth: dry mucous membranes Eyes General Eye ED: Negative for pale conjunctiva or scleral icterus Neck no JVD Chest Wall inspection of chest normal Resp normal respiratory effort and clear to auscultation bilaterally Cardio regular rate GI normal to inspection, nondistended, normoactive bowel sounds and non-tender GI Narrative: Despite having lower abdominal pain, she has no tenderness. Palpation: soft Back/Spine Back/Spine Narrative: She has soreness on both sides of her back. She thinks that this is from recurrent vomiting. She has redness where she has been rubbing it. But no rash. No indication of CVA tenderness that is different on one side or the other. It is sore with just light touch. Extremity normal to inspection Neuro oriented x3 Sensorium / Orientation: alert Psych mental status grossly normal Skin no rashes or lesions noted MDM MDM MDM Narrative Medical decision making narrative: I discussed the case with MEDICAL ACCOUNTING CLERK. Patient CBC showed minimal change in her white count. Urine shows no sign of infection. We did not have back her CMP yet. She has had elevated liver function test in the past. When we talked, I was told that this is likely due to her heavy use of marijuana. She evidently uses much more than she told me. After the patient was admitted, I did get liver function test back. I thought she was still in the department as she was on her board. Even though her pain is more lower abdomen and not upper, I did order ultrasound of right upper quadrant with this. However she left the department. I have been following the study. It is done but not yet resulted. This can be followed on the floor as her symptoms been going on weeks. Lab Data Attestation: I reviewed the patient's lab results. Labs: Laboratory Results - last 24 hr 04/22/21 04/22/21 04/22/21 17:20 17:20 18:00 WBC 12.7 H RBC 3.90 L Hgb 12.1 Hct 35.9 L MCV 92.1 MCH 31.0 MCHC 33.7 RDW Std Deviation 46.3 H RDW Coeff of Irena 13.6 Plt Count 355 MPV 9.8 Immature Gran % (Auto) 0.400 Neut % (Auto) 83.7 H Lymph % (Auto) 11.5 L [place] % (Auto) 4.2 Eos % (Auto) 0.0 Baso % (Auto) 0.2 Absolute Neuts (auto) 10.7 H Absolute Lymphs (auto) 1.46 Nucleated RBC % 0 Sodium 140 Potassium 3.6 Chloride 104 Carbon Dioxide 23.0 Anion Gap 13 BUN 12 Creatinine 0.61 Estim Creat Clear Calc 116.62 Est GFR (MDRD) Af Amer 153 Est GFR (MDRD) Non-Af 127 BUN/Creatinine Ratio 19.7 Glucose 96 Calcium 9.2 Total Bilirubin 2.00 H AST 137 H ALT 252 H Alkaline Phosphatase 95 Total Protein 7.3 Albumin 3.0 L Globulin 4.3 H Albumin/Globulin Ratio 0.7 L Urine Color SEE COMMENT BELOW Urine Clarity Cloudy Urine pH 6.0 Ur Specific [place] 1.025 Urine Protein 30 H Urine Glucose (UA) Normal Urine Ketones 150 A* Urine Occult Blood Negative Urine Nitrite Negative Urine Bilirubin 3 H Urine Urobilinogen 8 H Ur Leukocyte Esterase 100 H Urine RBC 0 SEEN Urine WBC 0-5 SEEN Ur Squamous Epith Cells 0-5 SEEN Urine Bacteria RARE Urine Mucus 4+ Urine Opiates Screen Urine Methadone Screen Ur Barbiturates Screen Ur Phencyclidine Scrn Ur Amphetamines Screen U Methamphetamin-MDMA U Benzodiazepines Scrn Urine Cocaine Screen U Cannabinoids Screen Ur Drug Screen Comment 04/22/21 18:00 WBC RBC Hgb Hct MCV MCH MCHC RDW Std Deviation RDW Coeff of Irena Plt Count MPV Immature Gran % (Auto) Neut % (Auto) Lymph % (Auto) [place] % (Auto) Eos % (Auto) Baso % (Auto) Absolute Neuts (auto) Absolute Lymphs (auto) Nucleated RBC % Sodium Potassium Chloride Carbon Dioxide Anion Gap BUN Creatinine Estim Creat Clear Calc Est GFR (MDRD) Af Amer Est GFR (MDRD) Non-Af BUN/Creatinine Ratio Glucose Calcium Total Bilirubin AST ALT Alkaline Phosphatase Total Protein Albumin Globulin Albumin/Globulin Ratio Urine Color Urine Clarity Urine pH Ur Specific [place] Urine Protein Urine Glucose (UA) Urine Ketones Urine Occult Blood Urine Nitrite Urine Bilirubin Urine Urobilinogen Ur Leukocyte Esterase Urine RBC Urine WBC Ur Squamous Epith Cells Urine Bacteria Urine Mucus Urine Opiates Screen POSITIVE H Urine Methadone Screen NEGATIVE Ur Barbiturates Screen NEGATIVE Ur Phencyclidine Scrn NEGATIVE Ur Amphetamines Screen NEGATIVE U Methamphetamin-MDMA NEGATIVE U Benzodiazepines Scrn NEGATIVE Urine Cocaine Screen NEGATIVE U Cannabinoids Screen POSITIVE H Ur Drug Screen Comment Discharge Plan Dx/Rx/DC Orders Clinical Impression: Hyperemesis gravidarum, Cannabis hyperemesis syndrome concurrent with and due to cannabis abuse Disposition Disposition: Acute Care [facility] Discharge Date/Time: 04/22/21 18:34
[2021-04-22] MEDS: 0.9% Normal Saline 1,000 ML 1000 ML IV (17:23)
[2021-04-22] MEDS: Ondansetron 4 MG/2 ML Vial IV (17:23)
[2021-04-22 17:35] LABS: Absolute Lymphocyte Count 1.46 X10^3/uL (0.83-4.51); Absolute Neutrophil Count 10.7 X10^3/uL (2.0-7.7); Basophil# 0.02 X10^3/uL; Basophil% 0.2 % (0-1); Hematocrit 35.9 % (37-47); Hemoglobin 12.1 g/dL (12.0-15.0); Lymphocyte # 1.46 X10^3/ul (0.83-4.51); Lymphocyte % 11.5 % (19-41); Mean Corp Hgb Conc 33.7 g/dL (32-36); Mean Corpuscular Volume 92.1 fL (81-99); Mean Platelet Vol. 9.8 fl (6.2-12.0); Monocyte# 0.54 X10^3/uL; Monocyte% 4.2 % (0-10); NRBC Flagged by Analyzer 0 % (0-5); Neutrophil # 10.67 X10^3/uL (2.7-7.7); Neutrophil % 83.7 % (47-70); Platelet Count 355 K/mm3 (150-450); RBC Distribution Width CV 13.6 % (11.6-14.6); RBC Distribution Width SD 46.3 fl (35.1-43.9); White Blood Count 12.7 K/mm3 (4.4-11.0)
[2021-04-22 17:52] LABS: ALB/GLOB Ratio 0.7 RATIO (0.9-2.4); AST(SGOT) 137 U/L (15-37); Alanine Aminotransfer ALT/SGPT 252 U/L (13-56); Alkaline Phosphatase 95 U/L (45-117); Anion Gap 13 (5-15); BUN 12 mg/dL (7-18); BUN/Creat Ratio 19.7 RATIO (10-20); Calcium,Total 9.2 mg/dL (8.5-10.1); Chloride 104 mmol/L (98-107); Creatinine, Serum 0.61 mg/dL (0.55-1.02); EST Glomerular Filtration Rate 127 mL/min (>60); Est Glom Filt Rate - Afr Amer 153 mL/min (>60); Estimated Creatinine Clearance 116.62 ml/min; Globulin 4.3 g/dL (2.2-4.2); Glucose 96 mg/dL (74-106); Potassium 3.6 mmol/L (3.5-5.1); Protein, Total 7.3 g/dL (6.4-8.2); Sodium Level 140 mmol/L (136-145)
--- NOTE | 2021-04-22 17:56 | US_ITS ---
STUDY: ABDOMINAL ULTRASOUND - RIGHT UPPER QUADRANT REASON FOR VISIT: Female, 25 years old PAIN TECHNIQUE: Ultrasound evaluation of the right upper quadrant was performed with real-time and static moscoso-scale imaging. TECHNICAL QUALITY: Adequate. COMPARISON: None. FINDINGS: Liver: The liver measures 16.2 cm. There is normal echogenicity of the liver. The bile ducts are within normal limits. There is hepatic color flow. The direction of portal flow is hepatopetal. There is no demonstrated mass lesion. Gallbladder: Normal distended gallbladder. The gallbladder wall measures 2.6 mm. There is a negative sonographic Romero''s sign. There is no pericholecystic fluid. There are no gallstones. There is sludge in the gallbladder. Common Bile Duct (C.B.D.): The common bile duct measures 2.9 mm. Pancreas: Normal size of the head, body and tail of the pancreas. There is normal echogenicity of the pancreas. There is no demonstrated pancreatic mass or cyst. Right Kidney: Normal size of the right kidney. The right kidney measures 10.1 x 5.8 x 5.4 cm. Normal renal cortex. The right cortex measures 1.7 cm. There is no demonstrated renal mass or cyst. There is no right hydronephrosis. US/Gallbladder IMPRESSION: Gallbladder sludge. Electronically Signed: William Hassan DO at 23:44 EST Tel [phone], Service support ,
[2021-04-22 18:10] LABS: Glucose, Dipstick Normal (Normal); Leukocyte Esterase-Dipstick 100 /ul (Negative); Nitrite-Dipstick Negative (Negative); Occult Blood-Urine Negative /ul (Negative); Protein-Dipstick 30 mg/dl (Negative); Red Blood Cells-Urine 0 SEEN /hpf (0-5); Specific Gravity, Urine 1.025 (1.002-1.030); Urine Clarity Cloudy (Clear); Urine Urobilinogen 8 mg/dl (Normal)
[2021-04-22 18:14] LABS: Color, Urine SEE COMMENT BELOW (Yellow)
[2021-04-22 18:15] LABS: Ketone-Dipstick 150 mg/dl (Negative); Urine Bilirubin Dipstick 3 mg/dL (Negative)
[2021-04-22 18:19] VITALS: BP 108/47; PULSE 81; RESP 18; TEMP 35.9; O2SAT 97
[2021-04-22 18:20] LABS: Mucous, Urine 4+ /hpf (<or=2+)
[2021-04-22 18:22] LABS: Bacteria RARE /hpf (None Seen); Squamous Epithelial Cells - UA 0-5 SEEN /hpf (5-10); White Blood Cells 0-5 SEEN /hpf (0-5)
[2021-04-22 18:48] VITALS: BMI 37.3
[2021-04-22 18:52] VITALS: BP 124/74; PULSE 97; RESP 16; TEMP 36.4; O2SAT 97
[2021-04-22 19:32] VITALS: PULSE 86
[2021-04-22 20:06] LABS: Amphetamine Urine VISTA NEGATIVE (<1000 ng/mL); Barbiturate Urine VISTA NEGATIVE (< 200 ng/mL); Benzodiazepine Urine VISTA NEGATIVE (< 200 ng/mL); Cocaine Urine VISTA NEGATIVE (< 300 ng/mL); Ecstacy Urine VISTA NEGATIVE (< 500 ng/mL); Methadone Urine VISTA NEGATIVE (< 300 ng/mL); PCP Urine VISTA NEGATIVE (< 25 ng/mL); THC Urine VISTA POSITIVE (< 50 ng/mL)
[2021-04-22] MEDS: Haloperidol Lactate 5 MG/ML Vial 1 MG IM (20:07)
[2021-04-22] MEDS: Famotidine 20 MG Tablet PO (20:13)
[2021-04-22] MEDS: Metoclopramide 10 MG/2 ML Vial IV (20:13)
[2021-04-22] MEDS: 0.9% Normal Saline 1,000 ML 125 ML IV (20:13)
[2021-04-22] MEDS: Docusate Sodium 100 MG Capsule PO (20:13)
[2021-04-22] MEDS: 0.9% Saline Lock 10 ML Syringe IV (20:17)
[2021-04-22 21:49] LABS: Vista UDS pH Range 6
[2021-04-23] VITALS (8 sets, daily range): BP systolic 106–123; BP diastolic 64–75; PULSE 68–94; RESP 16–18; TEMP 36.4–37.1; O2SAT 96–100
[2021-04-23] MEDS: Ondansetron 4 MG/2 ML Vial IV ×5 (00:07→23:29)
[2021-04-23] MEDS: Haloperidol Lactate 5 MG/ML Vial 1 MG IM ×4 (00:31→21:38)
[2021-04-23] MEDS: 0.9% Normal Saline 1,000 ML 125 ML IV ×3 (04:17→23:27)
[2021-04-23 05:38] LABS: Hematocrit 31.2 % (37-47); Hemoglobin 10.2 g/dL (12.0-15.0); Mean Corp Hgb Conc 32.7 g/dL (32-36); Mean Corpuscular Hgb 30.9 pg (27.0-32.0); Mean Corpuscular Volume 94.5 fL (81-99); Mean Platelet Vol. 9.9 fl (6.2-12.0); Platelet Count 282 K/mm3 (150-450); RBC Distribution Width CV 13.7 % (11.6-14.6); RBC Distribution Width SD 47.7 fl (35.1-43.9); White Blood Count 10.2 K/mm3 (4.4-11.0)
[2021-04-23 06:26] LABS: ALB/GLOB Ratio 0.6 RATIO (0.9-2.4); AST(SGOT) 127 U/L (15-37); Alanine Aminotransfer ALT/SGPT 229 U/L (13-56); Albumin, Serum 2.4 g/dL (3.2-5.0); Alkaline Phosphatase 82 U/L (45-117); Anion Gap 12 (5-15); BUN 11 mg/dL (7-18); BUN/Creat Ratio 19.7 RATIO (10-20); Calcium,Total 8.2 mg/dL (8.5-10.1); Chloride 107 mmol/L (98-107); Creatinine, Serum 0.56 mg/dL (0.55-1.02); EST Glomerular Filtration Rate 140 mL/min (>60); Est Glom Filt Rate - Afr Amer 170 mL/min (>60); Estimated Creatinine Clearance 127.04 ml/min; Globulin 3.7 g/dL (2.2-4.2); Glucose 83 mg/dL (74-106); Potassium 3.4 mmol/L (3.5-5.1); Protein, Total 6.1 g/dL (6.4-8.2); Sodium Level 139 mmol/L (136-145)
[2021-04-23] MEDS: Famotidine 20 MG Tablet PO ×2 (07:58→21:38)
[2021-04-23] MEDS: Metoclopramide 10 MG/2 ML Vial IV ×3 (07:58→21:38)
[2021-04-23] MEDS: 0.9% Saline Lock 10 ML Syringe IV ×4 (07:58→17:55)
[2021-04-23] MEDS: Docusate Sodium 100 MG Capsule PO (07:58)
--- NOTE | 2021-04-23 11:05 | HP.PCM.OB_ITS ---
HPI - General General Date of Admission: 04/22/21 HPI Narrative .BILLY WILSON, is a 25y/o @ 18 weeks 6 days who presents to [facility] ER twice yesterday, first with complaints of vaginal bleeding then again for persistent nausea and vomiting. She has been admitted for this several times in the past and has been to the ER on a frequent basis. She has been diagnosed with abusing cannabis during the and treated with Haldol in the past to alleviate the severe abdominal pains that present with the toxicity. She continues to use large dose of cannabis at home and has one one visit admitted that everyone in the house uses the drug and it is hard to get away from this. Today however when approached with the idea of seeing a drug and alcohol specialist she states that she never said that and only one other person in the house smokes marijuana and she does it outside. She then declines all counseling for drug and addiction abuse. Scans and blood tests do not indicate other etiology at this time. Urine dip may indicate UTI however. Maternal Data Information LUPIS Calculator Estimated Delivery Date Method Current WG Current Estimate 09/18/21 LMP (Certain) 18w 6d PFSH [facility] Medical History Hyperemesis gravidarum Marijuana abuse Home Medications metoclopramide HCl [Reglan] 10 mg PO Q6H PRN #30 tab 03/24/21 [Rx Last Taken 04/14/21 09:00] famotidine [Pepcid] 20 mg PO DAILY 04/14/21 [History Last Taken 04/22/21 09:00] ondansetron 4 mg PO Q8H 04/22/21 [History Last Taken Unknown] Allergy/AdvReac Type Severity Reaction Status Date / Time mushroom Allergy Anaphylaxis Verified 04/22/21 16:06 Family History Mother Cancer Grandmother Cancer Social History Smoking Status: Never smoker alcohol intake: never substance use type: does not use and marijuana caffeine: No what type of physical activity do you participate in: none seatbelt use: always do you feel safe at home: Yes additional social history: Dylon History 2 Elective abortions Hx Para 1 Spontaneous abortions Hx # Term Pregnancies Ectopic pregnancies Hx # Pregnancies Multiple births # of living children Past Pregnancies Del. Date Name GA/Weeks Outcome Route Bth Weight Infant Gen Labor Lgth Anesthesia Del Percyatn Provider FOB 02/28/17 Hanna 39 live - full term Delivery Date: 02/28/17 hyperemesis gravidarum Janay Suh Visit Details Expected Delivery Route/Plan Labor Preferences- CB/BF classes: [] labor support person: [] labor intervention preferences: [] pain management options preferred: [] cut cord/dad catch: [] : [] PP control planned: [] discussed possible routes of delivery and associated risks: [] special requests: [] Plans Covid status: [] Flu vaccine: [] Tdap vaccine: [] Rhogam: [] LARC form signed: [] Problem list reviewed and updated with the most current plan of care details and appropriate orders placed. Relevant counseling for the gestational age provided. Continue routine care and follow up unless otherwise noted in visit notes/problem list details OB Flowsheet Initial Weight: Not Recorded Date -?-?-?-?-?-?-?-?-?-?-?-?- EGA Weight BP Urine Prot -?-?-?-?-?-?-?-?-?-?-?-?- Glucose FHR FuHt Pres Dilation -?-?-?-?-?-?-?-?-?-?-?-?- Effaced St Visit Note 03/21/21 -?-?-?-?-?-?-?-?-?-?-?-?- 14w 1d 220 lb 122/84 -?-?-?-?-?-?-?-?-?-?-?-?- -?-?-?-?-?-?-?-?-?-?-?-?- Direct admit to labor and delivery for IV fluids plan [facility] consult 03/25/21 -?-?-?-?-?-?-?-?-?-?-?-?- 15w 0d 218 lb 212 lb 11.937 oz 212 lb 11.937 oz 120/84 121/86 115/98 115/98 141/80 123/79 118/82 131/82 125/77 116/68 96/53 109/62 -?-?-?-?-?-?-?-?-?-?-?-?- -?-?-?-?-?-?-?-?-?-?-?-?- 04/14/21 -?-?-?-?-?-?-?-?-?-?-?-?- 17w 5d 220 lb 211 lb 13.828 oz 142/91 142/91 148/84 131/69 122/69 126/70 112/66 125/73 30 mg/dl (Negative) H -?-?-?-?-?-?-?-?-?-?-?-?- 136 -?-?-?-?-?-?-?--?-?-?-?-?- 04/19/21 -?-?-?-?-?-?-?-?-?-?-?-?- 18w 2d 213 lb 130/80 3+ -?-?-?-?-?-?-?-?-?-?-?-?- Negative 150 -?-?-?-?-?-?-?-?-?--?-?-?- SM- no emesis to day, pain improved last night spontaneously. declining IVFs at this time, [employer] is processing her insurance. 04/22/21 -?-?-?-?-?-?-?-?-?-?-?-?- 18w 5d 116/75 119/73 106/64 -?-?-?-?-?-?-?-?-?-?-?-?- -?-?-?-?-?-?-?-?-?-?-?-?- ROS Constitutional Constitutional: Denies change in weight, fatigue, fever(s), headache(s), poor appetite or weakness Eyes Eyes: Denies blurry vision, change in vision, seeing flashes or spots in vision ENT HEENT: Denies dizziness, headache(s), loss taste/smell or sore throat Cardiovascular Cardiovascular: Denies chest pain, dizziness, dyspnea, irregular heart rhythm, leg edema, palpitations, rapid heart rate or vomiting Respiratory/Chest Respiratory/Chest: Denies chest tightness, cough, dyspnea or breast pain Gastrointestinal Gastrointestinal: Denies constipation, cramping, diarrhea or hemorrhoids Genitourinary Genitourinary: Denies dysuria, flank pain, genital lesions, genital pain, urinary frequency or urinary urgency Musculoskeletal Musculoskeletal: Denies back pain, difficulty walking, joint pain, limited range of motion, muscle cramps or numbness Integumentary Integumentary: Denies lesions or unusual bruising Neurologic Neurologic: Denies abnormal movements, abnormal speech, dizziness, numbness, seizure-like activity or syncope Psychiatric Psychiatric: Denies anxiety, behavioral changes, change in appetite, change in libido, cognitive impairment, confusion, depression, difficulty concentrating, hallucinations or suicidal thoughts Endocrine Endocrinology: Denies excessive sweating, polydipsia or polyuria Hematologic/Lymphatic Hematologic/Lymphatic: Denies easy bleeding, easy bruising or lymphadenopathy Allergic/Immunologic Allergic/Immunologic: Denies itchy eyes, lip swelling, seasonal rhinorrhea, rhinitis, throat swelling, tongue swelling, eczemia, wheezing or asthma Vital Signs Vital Signs Vital Signs: 04/22/21 16:06 04/22/21 18:19 04/22/21 18:52 Temperature 96.7 F L 96.7 F L 97.6 F L Temperature Source Temporal Temporal Oral Pulse Rate 99 81 97 Respiratory Rate 14 18 16 Respiratory Effort Respiratory Depth Respiratory Pattern Blood Pressure 126/84 H 108/47 L 124/74 H Blood Pressure Mean 98 67 90 Blood Pressure Source Monitor Blood Pressure Position Semi-Fowlers Blood Pressure Location Right Arm Pulse Ox 97 97 97 Oxygen Delivery Method Room Air Room Air Room Air 04/22/21 19:32 04/22/21 19:48 04/23/21 00:10 Temperature Temperature Source Pulse Rate 86 79 Respiratory Rate Respiratory Effort Normal Non-Labored Respiratory Depth Normal Respiratory Pattern Normal Blood Pressure Blood Pressure Mean Blood Pressure Source Blood Pressure Position Blood Pressure Location Pulse Ox Oxygen Delivery Method Room Air 04/23/21 01:47 04/23/21 04:28 04/23/21 05:38 Temperature 98.7 F 98.3 F Temperature Source Oral Oral Pulse Rate 73 68 73 Respiratory Rate 16 18 Respiratory Effort Respiratory Depth Respiratory Pattern Blood Pressure 116/75 119/73 Blood Pressure Mean 88 88 Blood Pressure Source Monitor Monitor Blood Pressure Position Semi-Fowlers Semi-Fowlers Blood Pressure Location Left Forearm Left Forearm Pulse Ox 96 97 Oxygen Delivery Method Room Air Room Air 04/23/21 07:52 Temperature 97.6 F L Temperature Source Oral Pulse Rate 78 Respiratory Rate 18 Respiratory Effort Respiratory Depth Respiratory Pattern Blood Pressure 106/64 Blood Pressure Mean 78 Blood Pressure Source Monitor Blood Pressure Position Semi-Fowlers Blood Pressure Location Right Arm Pulse Ox 98 Oxygen Delivery Method Room Air Weight Weight: 210 lb 9 oz Body Mass Index (BMI) 37.3 Physical Exam Const alert, oriented x3, no apparent distress and healthy appearing General Appearance: cooperative; Negative for anxious HEENT normocephalic Face and Sinus: normal facial exam Eyes EOMs intact bilaterally and no scleral icterus General Eye: normal appearance of both eyes Neck full ROM and supple Lymph Lymphatic: no lymphadenopathy noted Chest Chest: abnormal inspection of the chest Resp normal respiratory effort Effort and Inspection: able to speak in complete sentences Cardio regular rate GI soft to palpation and non-tender Inspection: gravid Palpation: soft; Negative for tender external exam normal Back/Spine no CVA tenderness Extremity normal to inspection, full ROM and no clubbing, cyanosis or edema General Extremity: Negative for calf tenderness or edema Skin Lesions: no lesions Rashes: no rashes Psych mental status grossly normal Labs Labs Labs: Blood Type AB POSITIVE Hct 31.2 % (37-47) L Hgb 10.2 g/dL (12.0-15.0) L Obstetrics US Hep Bs Antigen Negative (Negative) Assessment & Plan (1) Abdominal pain during in second trimester: (2) Cannabis hyperemesis syndrome concurrent with and due to cannabis abuse: (3) Non compliance with medical treatment: COMMENT: patient admitted to hospital for HG and then didn't return office calls or fu in office for 3 weeks. patient states she was in [place]. upon readmission was not taking medications as prescribed upon discharge. (4) Supervision of high-risk : COMMENT: LUPIS 09/18/21 PC [facility]anna Dylon (5) : QUALIFIERS: Weeks of gestation: 18 weeks Qualified Code(s): Z3A.18 - 18 weeks gestation of COMMENT: [facility] (6) Obesity affecting : COMMENT: hga1c checked. (7) Adverse effect of synthetic cannabinoid: COMMENT: still using a bowl a day. discussed risks and side effects, may be causing current symptoms. (8) Elevated liver enzymes: COMMENT: improving lfts this admission. neg hep panel, nl glucose. nl RUQ us. likely sec to HG, continue to follow. GI consult will follow up as OP (9) Hyperemesis gravidarum: COMMENT: pepcid, zofran and compazine scheduled, reglan PRN. dc home plan OP fluids saturday. [facility] home [facility] consult for reglan pump and IVFs. (10) Abdominal pain: COMMENT: may be due to HG or THC, ct abdomen ordered this admission due to leukocytosis. PLAN: 1. Pt may have a UTI. ordering IV medication now 2. IV multivitamins ordered including thiamine and potassium replacement 3. continue scheduled zofran and hope that social science instructor can help initiate next step to get her the devise prior to discharge. There seems to be a hold up on Billy's end perhaps with submitting the correct paper work 4. pt declines youth career specialist consultation. I have counseled her on cannabis cessation, discussed potential harm to the fetus and to herself. 5. pt is due for anatomy ultrasound of the fetus. will order through the hospital radiology department as she is unable to make it to [facility] to have this completed.
[2021-04-23] MEDS: Cefazolin 1 GM/50 ML BAG IV (12:25)
[2021-04-23] MEDS: Potassium Chloride 10mEq/100mL 10 MEQ/100 ML IV.SOLN. 100 MEQ IV BOLUS (14:25)
[2021-04-24 02:10] VITALS: BP 137/77; PULSE 94; RESP 16; TEMP 36.6; O2SAT 97
[2021-04-24] MEDS: Metoclopramide 10 MG/2 ML Vial IV ×3 (03:35→21:11)
[2021-04-24] MEDS: 0.9% Saline Lock 10 ML Syringe IV ×2 (03:35→08:55)
[2021-04-24] MEDS: Haloperidol Lactate 5 MG/ML Vial 1 MG IM ×2 (04:02→06:05)
[2021-04-24] MEDS: Ondansetron 4 MG/2 ML Vial IV ×3 (05:43→17:18)
[2021-04-24 06:00] VITALS: BP 123/77; PULSE 86; RESP 18; TEMP 36.6; O2SAT 96
[2021-04-24] MEDS: 0.9% Normal Saline 1,000 ML 125 ML IV ×2 (07:42→16:35)
[2021-04-24 08:51] LABS: Absolute Lymphocyte Count 1.05 X10^3/uL (0.83-4.51); Absolute Neutrophil Count 11.2 X10^3/uL (2.0-7.7); Basophil# 0.02 X10^3/uL; Basophil% 0.2 % (0-1); Eosinophil# 0.01 X10^3/uL; Eosinophils% 0.1 % (0-5); Hematocrit 35.3 % (37-47); Lymphocyte # 1.05 X10^3/ul (0.83-4.51); Lymphocyte % 8.2 % (19-41); Mean Platelet Vol. 9.7 fl (6.2-12.0); Monocyte# 0.54 X10^3/uL; Monocyte% 4.2 % (0-10); NRBC Flagged by Analyzer 0 % (0-5); Neutrophil # 11.19 X10^3/uL (2.7-7.7); Neutrophil % 86.9 % (47-70); Platelet Count 301 K/mm3 (150-450); RBC Distribution Width CV 13.2 % (11.6-14.6); RBC Distribution Width SD 42.6 fl (35.1-43.9); White Blood Count 12.9 K/mm3 (4.4-11.0)
[2021-04-24] MEDS: Docusate Sodium 100 MG Capsule PO (08:53)
[2021-04-24] MEDS: proMETHazine 25 MG/ML Syringe 12.5 MG IM (08:53)
[2021-04-24] MEDS: Morphine 4 MG/ML Syringe IV ×4 (08:54→21:11)
--- NOTE | 2021-04-24 09:11 | PN.OBGYN_ITS ---
Subjective Subjective pt states that she did not sleep well. She continues to vomit and complaint of moderate to sever RLQ pain. no fevers or chills no diarrhea. She states that the medications that usually help her are no longer helping. Objective Data Objective Data Vital Signs: Vital Signs Temp Pulse Resp BP Pulse Ox 98 F 86 18 123/77 H 96 04/24/21 06:00 04/24/21 06:00 04/24/21 06:00 04/24/21 06:00 04/24/21 06:00 Oxygen Delivery Method Room Air Weight: 210 lb 8.663 oz Body Mass Index (BMI) 37.3 Intake & Output: Intake and Output for Last 24 Hours 04/22/21 04/23/21 04/24/21 23:59 23:59 23:59 Intake Total 1000 / 1000 3761.00 / 3761.00 1000 / 1000 Output Total 400 / 400 Balance 1000 / 800 3361.00 / 3361.00 1000 / 1000 Medical Nutrition Assessment Dietitian: Malnutrition Criteria Met Start: 04/23/21 11:33 Freq: Status: Active Protocol: Document 04/23/21 11:33 RMA (Rec: 04/23/21 11:33 RMA [id number]) Nutrition Malnutrition Evidence of Malnutrition Exists Yes Malnutrition (severe): Acute Illness/Injury,Social/ Behavioral/Environmental Evidenced By Suboptimal Energy Intake ( Severe),Weight Loss (Severe) Clinical Problem Acute Disease or Injury Related Malnutrition Etiology Severe pro-jyotsna malnutrition in the context of acute related to altered GI function; N/V Signs/Symptoms as evidenced by ~12% wt loss x past 4-5 months and oral intake meeting less than 50% estimated nutrition needs. Status Active Problem Recommendation Dietitian Recommendations/Changes Continue clear liquid diet and advance as tolerated to regular. Will d/c ensure clear as pt is refusing to take it. Lab / Micro Data Result Diagrams: 04/23/21 05:15 04/23/21 05:15 ROS Constitutional Constitutional: Denies change in weight, chills, fatigue, fever(s), headache(s), poor appetite or weakness Eyes Eyes: Denies blurry vision, change in vision, seeing flashes or spots in vision ENT HEENT: Denies dizziness, headache(s), loss taste/smell or sore throat Cardiovascular Cardiovascular: Denies chest pain, dizziness, irregular heart rhythm, leg edema, palpitations or rapid heart rate Respiratory/Chest Respiratory/Chest: Denies chest tightness, cough or dyspnea Gastrointestinal Gastrointestinal: Denies diarrhea or hemorrhoids Genitourinary Genitourinary: Denies dysuria, flank pain, genital lesions, genital pain, urinary frequency or urinary urgency Musculoskeletal Musculoskeletal: Denies back pain, difficulty walking, limited range of motion or muscle cramps Integumentary Integumentary: Denies lesions or unusual bruising Neurologic Neurologic: Denies abnormal movements, abnormal speech, dizziness, numbness, seizure-like activity or syncope Psychiatric Psychiatric: Denies anxiety or behavioral changes Physical Exam Const alert, oriented x3, no apparent distress and healthy appearing General Appearance: cooperative; Negative for anxious HEENT normocephalic Face and Sinus: normal facial exam Eyes EOMs intact bilaterally and no scleral icterus General Eye: normal appearance of both eyes Neck full ROM and supple Lymph Lymphatic: no lymphadenopathy noted Chest Chest: abnormal inspection of the chest Resp normal respiratory effort Effort and Inspection: able to speak in complete sentences Cardio regular rate GI soft to palpation and non-tender Inspection: gravid Palpation: soft; Negative for tender external exam normal Back/Spine no CVA tenderness Extremity normal to inspection, full ROM and no clubbing, cyanosis or edema General Extremity: Negative for calf tenderness or edema Skin Lesions: no lesions Rashes: no rashes Psych mental status grossly normal Assessment & Plan (1) Abdominal pain during in second trimester: (2) Cannabis hyperemesis syndrome concurrent with and due to cannabis abuse: (3) Non compliance with medical treatment: COMMENT: patient admitted to hospital for HG and then didn't return office calls or fu in office for 3 weeks. patient states she was in [place]. upon readmission was not taking medications as prescribed upon discharge. (4) Supervision of high-risk : COMMENT: LUPIS 09/18/21 PC [place] (5) : QUALIFIERS: Weeks of gestation: 18 weeks Qualified Code(s): Z3A.18 - 18 weeks gestation of COMMENT: [facility] (6) Obesity affecting : COMMENT: hga1c checked. (7) Adverse effect of synthetic cannabinoid: COMMENT: still using a bowl a day. discussed risks and side effects, may be causing current symptoms. (8) Elevated liver enzymes: COMMENT: improving lfts this admission. neg hep panel, nl glucose. nl RUQ us. likely sec to HG, continue to follow. GI consult will follow up as OP (9) Hyperemesis gravidarum: COMMENT: pepcid, zofran and compazine scheduled, reglan PRN. dc home plan OP fluids saturday. [facility] home [facility] consult for reglan pump and IVFs. (10) Abdominal pain: COMMENT: may be due to HG or THC, ct abdomen ordered this admission due to leukocytosis. PLAN: minimal improvement in hyperemesis and/or abdominal pain over the weekend. plan to redraw cbc and cmp today, anatomy ultrasound for today.- Request made to look at the right ovary to rule out torsion. CT on 04/14 ruled out appendicitis. I do not recommend further CT evaluation due to harmful effects on the fetus. pt declines to talk to the addiction experts. #1 on differential continues to be cannabis intoxication syndrome. Charges/Coding Visit Charges Inpatient E&M: 71418 Subs Hosp L3
[2021-04-24 09:17] LABS: Anion Gap 12 (5-15); BUN 3 mg/dL (7-18); BUN/Creat Ratio 6.1 RATIO (10-20); Calcium,Total 8.4 mg/dL (8.5-10.1); Chloride 102 mmol/L (98-107); EST Glomerular Filtration Rate 161 mL/min (>60); Est Glom Filt Rate - Afr Amer 194 mL/min (>60); Estimated Creatinine Clearance 142.28 ml/min; Glucose 83 mg/dL (74-106); Potassium 3.1 mmol/L (3.5-5.1); Sodium Level 134 mmol/L (136-145)
[2021-04-24 09:49] LABS: Mean Corpuscular Volume 88.3 fL (81-99)
--- NOTE | 2021-04-24 10:57 | US_ITS ---
STUDY: SECOND AND THIRD TRIMESTER OBSTETRICAL ULTRASOUND REASON FOR EXAM: Female, 25 years old anatomy scan needed..... LMP: 12/12/2020. TECHNIQUE: Transabdominal TECHNICAL QUALITY: Limited study. Patient would not tolerate the complete examination due to nausea and vomiting. PRIOR ULTRASOUND: Comparison is made with prior study dated 04/22/2020. FINDINGS: There is a single intrauterine fetus. The fetus is in a breech presentation. There is demonstrated cardiac activity with a heart rate of 148 bpm. There is a normal amniotic fluid volume. The largest amniotic fluid pocket measures 6 cm x 5.9 cm. The amniotic fluid index (LORNA) is within normal limits. The placenta is anterior in location and is not low lying. There are Grade 1 placental changes. The bilateral adnexal regions are normal. Vascular flow is seen in both ovaries. BIOMETRY: BPD: 4.4 cm: 19 weeks, 1 days HC: 16.2 cm: 18 weeks, 6 days AC: 13.2 cm: 18 weeks, 4 days FL: 2.9 cm: 18 weeks, 6 days CI: 80% FL/BPD: 66% FL/HC: FL/AC: 22% HC/AC: 1.23 age by current US: 19 weeks, 0 days. LUPIS by current US: 09/20/2021. Estimated weight: 60 grams, +/- 39 grams, 37 %. age by prior US: 18 weeks, 6 days. LUPIS by prior US: 09/17/2021. Age by LMP: 18 weeks, 5 days. LUPIS by LMP: 09/18/2021. ANATOMY: Gender: Male Cranium: Normal lateral ventricles. Normal choroid plexus. Normal cerebellum. Normal cisterna magna. Normal face, nose and lips. Chest: The heart is non-visualized. Abdomen/Pelvis: The diaphragm is non-visualized. Normal stomach. Normal abdominal wall. The cord insertion is non-visualized. Normal 3 vessel cord. Normal kidneys. Normal bladder. Spine: The cervical spine is non-visualized. The thoracic spine is non-visualized. The lumbar spine is non-visualized. Normal sacrum. Extremities: The upper extremities are not visualized. The lower extremities are non-visualized. US/OB Anatomy Scan IMPRESSION: Single live intrauterine gestation with a mean gestational age of 18 weeks and 6 days. The measurements are obtained today following the normal expected range. The vascular supply is visualized to both ovaries. Limited anatomical examination due to the patient''s medical condition. Electronically Signed: Elgin Horner MD at 14:43 EST , Service support ,
[2021-04-24] MEDS: Potassium Chloride 10mEq/100mL 10 MEQ/100 ML IV.SOLN. 100 MEQ IV BOLUS ×3 (11:45→16:36)
--- NOTE | 2021-04-24 13:52 | CASEMGMT ---
Addendum entered by Jasmyn Mercer 04/24/21 13:57: Social Work SW called S, confirmed via the automated system that pt's Medicaid is pending. SW called our financial department, message left to let them know that pt does have pending Medicaid. SW will continue to follow. MARIANNE Cornejo Original Note: Social Work SW attempted to meet w/pt regarding marijuana use and Medicaid application. Pt nauseous, visibly appearing very uncomfortable. SW and pt agreed to meet tomorrow, pt states she does not think she is going to be able to talk to SW at this time. SW will follow up once pt's nausea has subsided. SW will call the case bank today as time allows, as chart states pt's Medicaid application was sent in on 03/27, but pt is still listed as self pay. MARIANNE Cornejo
[2021-04-24 14:48] VITALS: BP 133/77; PULSE 92; RESP 16; TEMP 36.9; O2SAT 100
--- NOTE | 2021-04-24 16:23 | CASEMGMT ---
Addendum entered by Viri Gillespie 04/24/21 16:31: Pt screened with [facility] Palliative Care Screening Tool due to readmission, pt did not meet criteria. Original Note: GABRIEL LIMON Readmission Note Previous Admission: 03/25/2021-03/27/2021 Diagnosis: hyperemesis gravidarum DC Disposition: Home with FU with doctor office or [facility]. Current Admission Diagnosis: hyperemesis gravidarum, marijuana abuse Pt presented to ER with N/V. Pt is 18 weeks gestation. GABRIEL LIMON in to pt room. Pt states she has been following up with her TUBE SORTER, although per notes stated pt had not in 3weeks from last observation stay. Pt states she is taking her medications as directed but stated differently in D[employer]LLING [employer]OR note. Pt states she was supposed to have gotten a reglan pump but this did not go through d/t not having insurance. ARTIE Vines to work with pt on this. Pt denies further needs at this time. GABRIEL LIMON to follow insurance and reglan pump as per doctors orders. DC PLAN: Home
[2021-04-24 20:52] VITALS: BP 111/58; PULSE 72; RESP 16; TEMP 36.6; O2SAT 96
[2021-04-25] MEDS: Ondansetron 4 MG/2 ML Vial IV ×4 (00:26→17:34)
[2021-04-25] MEDS: 0.9% Saline Lock 10 ML Syringe IV (00:28)
[2021-04-25 00:30] VITALS: BP 104/55; PULSE 78; RESP 18; TEMP 36.3; O2SAT 98
[2021-04-25] MEDS: 0.9% Normal Saline 1,000 ML 125 ML IV ×2 (00:35→08:06)
[2021-04-25] MEDS: Acetaminophen 500 MG Tablet 1000 MG PO (04:43)
[2021-04-25 04:44] VITALS: BP 104/60; PULSE 90; RESP 18; TEMP 36.4; O2SAT 97
[2021-04-25] MEDS: Morphine 4 MG/ML Syringe IV (06:32)
[2021-04-25 07:56] VITALS: BP 117/66; PULSE 82; RESP 16; TEMP 36.8; O2SAT 100
--- NOTE | 2021-04-25 11:34 | PN.OBGYN_ITS ---
Subjective Subjective pt is sitting up in bed today and appears much better compared to last night. She states that she feels better and wants to go home. The reglan pump has still not been set up by [facility] however. She declines consultation with drug floral specialist and has not talked with GI yet Objective Data Objective Data Vital Signs: Vital Signs Temp Pulse Resp BP Pulse Ox 98.3 F 82 16 117/66 100 04/25/21 07:56 04/25/21 07:56 04/25/21 07:56 04/25/21 07:56 04/25/21 07:56 Oxygen Delivery Method Room Air Weight: 210 lb 8.663 oz Body Mass Index (BMI) 37.3 Intake & Output: Intake and Output for Last 24 Hours 04/23/21 04/24/21 04/25/21 23:59 23:59 23:59 Intake Total 3761.00 / 3761.00 2297.92 / 2297.92 1939.58 / 1939.58 Output Total 400 / 400 600 / 600 400 / 400 Balance 3361.00 / 3361.00 1697.92 / 1697.92 1539.58 / 1539.58 Medical Nutrition Assessment Dietitian: Malnutrition Criteria Met Start: 04/23/21 11:33 Freq: Status: Active Protocol: Document 04/23/21 11:33 RMA (Rec: 04/23/21 11:33 RMA [id number]) Nutrition Malnutrition Evidence of Malnutrition Exists Yes Malnutrition (severe): Acute Illness/Injury,Social/ Behavioral/Environmental Evidenced By Suboptimal Energy Intake ( Severe),Weight Loss (Severe) Clinical Problem Acute Disease or Injury Related Malnutrition Etiology Severe pro-jyotsna malnutrition in the context of acute related to altered GI function; N/V Signs/Symptoms as evidenced by ~12% wt loss x past 4-5 months and oral intake meeting less than 50% estimated nutrition needs. Status Active Problem Recommendation Dietitian Recommendations/Changes Continue clear liquid diet and advance as tolerated to regular. Will d/c ensure clear as pt is refusing to take it. Lab / Micro Data Result Diagrams: 04/24/21 08:45 04/24/21 08:45 Radiography Diagnostic Testing: Radiology Impression Obstetrics Ultrasound 04/24/21 10:57 IMPRESSION: Single live intrauterine gestation with a mean gestational age of 18 weeks and 6 days. The measurements are obtained today following the normal expected range. The vascular supply is visualized to both ovaries. Limited anatomical examination due to the patient''s medical condition. Electronically Signed: Elgin Horner MD at 14:43 EST , Service support , ROS Constitutional Constitutional: Denies change in weight, chills, fatigue, fever(s), headache(s), poor appetite or weakness ENT HEENT: Denies dizziness, headache(s), loss taste/smell or sore throat Cardiovascular Cardiovascular: Denies chest pain, dizziness, dyspnea, irregular heart rhythm, leg edema, palpitations, rapid heart rate or vomiting Respiratory/Chest Respiratory/Chest: Denies chest tightness, cough, dyspnea or breast pain Gastrointestinal Gastrointestinal: Denies abdominal pain, cramping, diarrhea, hemorrhoids or vo miting Genitourinary Genitourinary: Denies dysuria, flank pain, genital lesions, genital pain, urinary frequency or urinary urgency Musculoskeletal Musculoskeletal: Denies back pain, difficulty walking or muscle cramps Neurologic Neurologic: Denies abnormal movements, abnormal speech, dizziness, numbness or seizure-like activity Psychiatric Psychiatric: Denies anxiety, behavioral changes, confusion, depression, difficulty concentrating, hallucinations or suicidal thoughts Physical Exam Const alert, oriented x3 and no apparent distress General Appearance: cooperative and comfortable Resp normal respiratory effort Cardio regular rate GI normal to inspection, nondistended, normoactive bowel sounds Palpation: soft Assessment & Plan (1) Abdominal pain during in second trimester: (2) Cannabis hyperemesis syndrome concurrent with and due to cannabis abuse: (3) Non compliance with medical treatment: COMMENT: patient admitted to hospital for HG and then didn't return office calls or fu in office for 3 weeks. patient states she was in [place]. upon readmission was not taking medications as prescribed upon discharge. (4) Supervision of high-risk : COMMENT: LUPIS 09/18/21 PC Hanna Dylon (5) : QUALIFIERS: Weeks of gestation: 18 weeks Qualified Code(s): Z3A.18 - 18 weeks gestation of COMMENT: [facility] (6) Obesity affecting : COMMENT: hga1c checked. (7) Adverse effect of synthetic cannabinoid: COMMENT: still using a bowl a day. discussed risks and side effects, may be causing current symptoms. (8) Elevated liver enzymes: COMMENT: improving lfts this admission. neg hep panel, nl glucose. nl RUQ us. likely sec to HG, continue to follow. GI consult will follow up as OP (9) Hyperemesis gravidarum: COMMENT: pepcid, zofran and compazine scheduled, reglan PRN. dc home plan OP fluids saturday. [facility] consult for reglan pump and IVFs. (10) Abdominal pain: COMMENT: may be due to HG or THC, ct abdomen ordered this admission due to leukocytosis. PLAN: Pt appears better suddenly. at this point I feel it is best to wait for [facility] to set up zofran or reglan pump prior to going home. I recommend that she still talks with the GI physician to better explain pathophysiology behind cannabis intoxication. She does not seem to understand the severity as this is her 3rd admission for the same continued mistakes at home of self medication for hyperemesis with THC. - She continues to decline consultation with oil program compliance specialist, Dr. Shoemaker at [facility]. Charges/Coding Multi Select Codes Visit Charges Visit Charges: 26174 Subs Hosp L3
[2021-04-25] MEDS: Docusate Sodium 100 MG Capsule PO (11:42)
[2021-04-25 12:25] LABS: ALB/GLOB Ratio 0.6 RATIO (0.9-2.4); AST(SGOT) 156 U/L (15-37); Alanine Aminotransfer ALT/SGPT 298 U/L (13-56); Albumin, Serum 2.4 g/dL (3.2-5.0); Alkaline Phosphatase 98 U/L (45-117); Anion Gap 9 (5-15); BUN 4 mg/dL (7-18); BUN/Creat Ratio 7.4 RATIO (10-20); Calcium,Total 8.3 mg/dL (8.5-10.1); Chloride 105 mmol/L (98-107); Creatinine, Serum 0.54 mg/dL (0.55-1.02); EST Glomerular Filtration Rate 144 mL/min (>60); Est Glom Filt Rate - Afr Amer 175 mL/min (>60); Estimated Creatinine Clearance 131.74 ml/min; Globulin 3.9 g/dL (2.2-4.2); Glucose 98 mg/dL (74-106); Potassium 3.4 mmol/L (3.5-5.1); Protein, Total 6.3 g/dL (6.4-8.2); Sodium Level 135 mmol/L (136-145)
--- NOTE | 2021-04-25 12:39 | CASEMGMT ---
Social Work SW spoke w/pt in regard to her insurance and her marijuana use. Pt reporting she is feeling better today and is able to speak w/SW. Pt initially asked SW about insurance. SW explained did call [employer] yesterday, and was able to find out through the automated system that her Medicaid application is pending. As per pt, she has not brought in any documents, any proof of income. She states she has called and was told that there was nothing needed at this time. She states as per the doctor she should stay here until she gets the anti-nausea pump. She also states her doctor said to just say she has no income to she can get the pump. SW explained is unaware of how to go about getting the pump without insurance, will look into this. Pt states she does not want to stay here today, wants to leave today. She states she is feeling better and feels she can manage at home. SW explained will call Medicaid again, and go from there in regard to pt's insurance. SW then spoke w/pt about the marijuana use, explained that her tox screen for marijuana has been multiple times when she has been in the hospital over last month or so. Pt states she started using it just over the last few weeks because of the nausea, and initially it helped, but then it made it worse. She states she plans to stop. She said the doctor spoke w/her about getting help for the marijuana, pt states she is going to stop and does not need help. She denies any other substance abuse. SW explained to pt that when she has her baby(and she is having her baby here), the SW will likely need to call [facility]. SW explained that if she has negative tox screens after today that will reflect better on her than if she continues to test positive. Pt again states she is not going to use any more. Pt denies needing help to quit. SW asked about her 4 year old, she states her four year old was here but went back to [place] when pt got sick again, and the four year old is with her father. SW explained will call [employer] and let her know what they say. SW spoke w/CM, she will call the pump company to see if there is any indigent program the pt could utilize. SW called [employer], they would not release information to this SW. SW put the pt on the phone and SW's phone promptly disconnected. Pt then called on her own. She states she needs to bring in multiple documents, and needs to gather them, as some are in [place]. SW then found out from CM for the anti-nausea pump, she would need maternal Medicaid. SW let pt know, she called again. She was told by [facility] that there is no different Medicaid, there is no maternal Medicaid. Pt continues to state that she wants to go home today, asked if we can reach out to the doctor to explain that we may not be able to get this anti nausea pump today, but that she would like to go home today. CM to reach out to physician. No further social service needs. Pt to go home, possibly today, and pt is to follow up w/documents to [employer]. MARIANNE Cornejo
--- NOTE | 2021-04-25 13:11 | CASEMGMT ---
Addendum entered by Viri Gillespie 04/25/21 14:21: TC to 's office, notified Fabi that if pt had all documents to the medicaid office, it would take approx 10 business days for the approval. Addendum entered by Viri Gillespie 04/25/21 13:36: TC to 's office to make aware of status of pump/insurance. Spoke with Mone. She is aware that pt is unable to afford self pay for the pump and pt does not have insurance. She is aware that pt needs to provide documents for the insurance process to continue. Some of the documents are in [place]. Mone states there is not another company other than [facility] to see if there is another indigent program. She states pt has been aware that she needs to provide these documents. She then asked to speak to ARTIE Vines. Original Note: TC to [facility] to verify antiemetic pump status/process. Rep states pt does not have insurance and she stated prior that she can not afford to self pay med. They do not have an indigent program. They do not accept pending medicaid, it is treated as a self pay. The self pay farias is $2380 for 14 days and 14 days is needed to be paid up front. Rep states that pt needs to have maternity medicaid, traditional medicaid does not cover the pump. Per rep, pt will need to ask for maternity medicaid. She states she needs to call medicaid and state she wants to be under the maternity plan and sometimes they will give an ID# over the phone. Once this number is obtained, they can run the number. Once approval has been determined, the set up to get the med and homecare to the patient home is approx 24-48 hours.
--- NOTE | 2021-04-25 14:03 | CASEMGMT ---
Addendum entered by Jasmyn Mercer 04/25/21 14:45: Social Work SW did let pt know that it will take ten days to process her application once she gets them the documents. She states she can email them documents once she gets home, but also needs to print some documents to complete and send back, is not sure how to print them. SW had pt email them to this SW, SW printed and gave her the documents. SW let her know physician is aware it will take time to process her Medicaid and she wants to go home today. No further social service needs at this time. MARIANNE Cornejo Original Note: Social Work SW spoke w/Mone from Dr. Alamo's office as well. SW reiterated what ASHLY Meredith had already told her. SW explained that pt needs to bring in documentation into [facility] in order for her Medicaid to become active. As per Mone, pt was aware of this. SW explained that even when the documents are submitted, it may take some time before the Medicaid to become active. She will speak w/Dr. Alamo to decide what she will do in regard to discharging pt. SW spoke w/Corazon Ignacio at [facility], as per Corazon, she state that generally speaking, after someone submits all the paperwork it takes 10 days to process the paperwork and get pt's Medicaid active. MARIANNE Cornejo
[2021-04-25 14:06] VITALS: BP 108/68; PULSE 80; RESP 16; TEMP 37.5; O2SAT 99
--- NOTE | 2021-04-25 17:47 | CON.PCM.GI_ITS ---
HPI Consult Data Date of Consult: 04/25/21 HPI Narrative HPI Narrative: BILLY WILSON, is a 25 F who presents from home with worsening nausea vomiting. She is 19 weeks . She has a past medical history of marijuana hyperemesis refractory to most outpatient medicines. She has been getting IV fluids every few days as an outpatient due to dehydration from nausea vomiting. She says that she does not smoke marijuana every day, but it does help with abdominal pain that she experiences. She complains of constant nausea that is only relieved with marijuana and IV fluids along with IV administration of Reglan, Compazine, Phenergan, Zofran and famotidine. She has not been on a PPI at home and has not been on Carafate. She said that she is supposed to have a Reglan pump due to refractory nausea. Her current work-up includes comprehensive metabolic profile, CBC and imaging. Her lab work and imaging are similar to her previous admissions for intractable nausea vomiting. At this time she is not having any pain, cramping or nausea. [facility] Medical History Hyperemesis gravidarum Marijuana abuse Home Medications metoclopramide HCl [Reglan] 10 mg PO Q6H PRN #30 tab 03/24/21 [Rx Last Taken 04/14/21 09:00] meclizine 25 mg PO BID PRN #30 tab 04/25/21 [Rx Last Taken Unknown] pantoprazole [Protonix] 40 mg PO BID #60 tab 04/25/21 [Rx Last Taken Unknown] sucralfate 10 ml PO BID 30 Days #600 ml 04/25/21 [Rx Last Taken Unknown] Allergy/AdvReac Type Severity Reaction Status Date / Time mushroom Allergy Anaphylaxis Verified 04/22/21 16:06 Family History Mother Cancer Grandmother Cancer Social History Smoking Status: Never smoker alcohol intake: never substance use type: does not use and marijuana caffeine: No what type of physical activity do you participate in: none seatbelt use: always do you feel safe at home: Yes additional social history: Dylon ROS Review of Systems ROS Unobtainable: other Constitutional Constitutional: Denies fatigue, fever(s), poor appetite, weight gain or weight loss ENT HEENT: Denies mouth lesions Cardiovascular Cardiovascular: Denies abdominal bloating, abdominal edema or abdominal pain Respiratory/Chest Respiratory/Chest: Denies change in mental status, change in phlegm color, chest congestion or chest tightness Gastrointestinal Gastrointestinal: Denies belching, bloating, change in bowel habits, change in stool character, chewing difficulty, coffee ground emesis, constipation, cramping, diarrhea, dyspepsia, dysphagia, early satiety, excessive flatus, fecal incontinence, heartburn, hematemesis, hematochezia, hemorrhoids, loose stools, melena, nausea, odynophagia, rectal bleeding, tenesmus, vomiting or weight changes Genitourinary Genitourinary: Denies abdominal discomfort, burning urination or itching Musculoskeletal Musculoskeletal: Reports as per HPI; Denies muscle weakness or myalgias Integumentary Integumentary: Denies jaundice Neurologic Neurologic: Denies lack of coordination or weakness Psychiatric Psychiatric: Denies confusion, depression, memory loss, mood swings, paranoia or suicidal ideation Endocrine Endocrinology: Denies systems reviewed and no addt'l complaints, except as documented Hematologic/Lymphatic Hematologic/Lymphatic: Denies anemia, easy bleeding, easy bruising or lymphade nopathy Allergic/Immunologic Allergic/Immunologic: Denies systems reviewed and no addt'l complaints, except as documented Physical Exam Const alert General Appearance: cooperative Orientation / Consciousness: oriented to person HEENT hearing grossly normal bilaterally Head and Scalp: normal to inspection Face and Sinus: face symmetric Nose: external nose normal Mouth: oral and palatal mucosa normal Eyes conjunctivae normal General Eye: normal appearance of both eyes Neck full ROM General: normal visual inspection Lymph Lymphatic: no lymphadenopathy noted Chest inspection of chest normal and palpation of chest normal Chest: symmetrical chest wall rise Resp normal respiratory effort Effort and Inspection: able to speak in complete sentences Cardio regular rate GI non-distended Percussion: normal to percussion Rectal Exam: deferred Neuro Speech: speech normal Gait (Neuro): normal gait Medical Records Data Medical Nutrition Assessment Dietitian: Malnutrition Criteria Met Start: 04/23/21 11:33 Freq: Status: Active Protocol: Document 04/23/21 11:33 RMA (Rec: 04/23/21 11:33 RMA [id number]) Nutrition Malnutrition Evidence of Malnutrition Exists Yes Malnutrition (severe): Acute Illness/Injury,Social/ Behavioral/Environmental Evidenced By Suboptimal Energy Intake ( Severe),Weight Loss (Severe) Clinical Problem Acute Disease or Injury Related Malnutrition Etiology Severe pro-jyotsna malnutrition in the context of acute related to altered GI function; N/V Signs/Symptoms as evidenced by ~12% wt loss x past 4-5 months and oral intake meeting less than 50% estimated nutrition needs. Status Active Problem Recommendation Dietitian Recommendations/Changes Continue clear liquid diet and advance as tolerated to regular. Will d/c ensure clear as pt is refusing to take it. Lab / Micro Data Result Diagrams: 04/24/21 08:45 04/25/21 11:40 Labs: Laboratory Results - last 24 hr 04/25/21 11:40: Sodium 135 L, Potassium 3.4 L, Chloride 105, Carbon Dioxide 21.0, Anion Gap 9, BUN 4 L, Creatinine 0.54 L, Estim Creat Clear Calc 131.74, Est GFR (MDRD) Af Amer 175, Est GFR (MDRD) Non-Af 144, BUN/Creatinine Ratio 7.4 L, Glucose 98, Calcium 8.3 L, Total Bilirubin 2.10 H, AST 156 H, ALT 298 H, Alkaline Phosphatase 98, Total Protein 6.3 L, Albumin 2.4 L, Globulin 3.9, Albumin/Globulin Ratio 0.6 L Assessment & Plan Assessment/Plan (1) Cannabis hyperemesis syndrome concurrent with and due to cannabis abuse: PLAN: I explained to her that her current weight loss from nausea and vomiting secondary to marijuana can result in a smaller fetus. She says that she will not smoke anymore and she is scheduled to get a Reglan pump. I do not know if her Reglan pump is going to help her and I do not know the side effects of Reglan for intractable nausea vomiting in . I recommended to her a proton pump inhibitor and Carafate therapy along with meclizine because these are class B medicines. Also recommended that she get vitamin D 6 and B12. (2) Elevated liver enzymes: PLAN: I suspect that her liver enzymes are elevated secondary to Gilbert's syndrome. She has had elevated indirect bilirubinemia secondary to nausea vomiting. I also suspect that her elevated AST and ALT are secondary to mild fatty liver disease versus nausea vomiting that can cause elevated in transaminitis.. No signs of obstruction or acute hepatitis on imaging or previous blood work. Charges/Coding Visit Charges Inpatient E&M: 71411 Init Hosp L3
[2021-05-03 08:30] LABS: Vitamin B1, Thiamine 94.6 nmol/L (66.5-200.0)
== END 2021-04-25 18:29 | disposition home or self-care (01) | DRG 832 ==
LOC: ED 16:37 → MS3 22:26
PROVIDERS: Admitting Provider Obstetrics & Gynecology; Emergency Provider Emergency Medicine; Visit Provider Obstetrics & Gynecology
DX: O21.0 Mild hyperemesis gravidarum (principal); O99.322 Drug use complicating pregnancy, second trimester; O20.9 Hemorrhage in early pregnancy, unspecified; F12.188 Cannabis abuse with other cannabis-induced disorder; E80.4 Gilbert syndrome; Z3A.19 19 weeks gestation of pregnancy; O26.892 Other specified pregnancy related conditions, second trimester; O99.282 Endocrine, nutritional and metabolic diseases complicating pregnancy, second trimester; R10.9 Unspecified abdominal pain; E66.9 Obesity, unspecified; O99.212 Obesity complicating pregnancy, second trimester; R10.2 Pelvic and perineal pain
CPT/HCPCS: 36415; 76705; 76805; 76815; 80048; 80053; 80307; 81001; 84425; 84702; 85025; 85027; 86900; 86901; 87086; 87088; 93976; 96361; 96374; 96375; 97802; 99283; 99285; J7030; J7040; J7050; A4216; J2405; J3490

== ENCOUNTER 2021-04-26 01:28 | Observation (INO) | payer SELFPAY ==
[2021-04-26 01:29] VITALS: BP 132/94; PULSE 125; RESP 16; TEMP 36.2; O2SAT 94; BMI 36.5
--- NOTE | 2021-04-26 01:47 | EDS_ITS ---
HPI HPI - Female History of Present Illness Chief Complaint: Vag Bld, Preg Narrative Narrative: Patient is a G2, P1 female who is 19 weeks and 1 day . She has been seen multiple times in the hospital for the same complaint. She was just recently admitted to the hospital and actually discharged on April 25 around 7 PM. She states that she went home and then developed increasing abdominal pain with bouts of vaginal bleeding as well as nausea and vomiting similar to the prior time she has been seen in the hospital. She denies doing any illicit drugs when she arrived home as she does have a history of cannabis use. She states that she tried her home medications with no symptom improvement and therefore comes to the hospital for repeat evaluation. [facility] Medical History Hyperemesis gravidarum Marijuana abuse Home Medications metoclopramide HCl [Reglan] 10 mg PO Q6H PRN #30 tab 03/24/21 [Rx Last Taken 04/14/21 09:00] meclizine 25 mg PO BID PRN #30 tab 04/25/21 [Rx Last Taken Unknown] pantoprazole [Protonix] 40 mg PO BID #60 tab 04/25/21 [Rx Last Taken Unknown] sucralfate 10 ml PO BID 30 Days #600 ml 04/25/21 [Rx Last Taken Unknown] Allergy/AdvReac Type Severity Reaction Status Date / Time mushroom Allergy Anaphylaxis Verified 04/26/21 01:34 Family History Mother Cancer Grandmother Cancer Social History Smoking Status: Never smoker alcohol intake: never substance use type: does not use and marijuana caffeine: No what type of physical activity do you participate in: none seatbelt use: always do you feel safe at home: Yes additional social history: Dylon ROS ROS ED Constitutional Constitutional ED: Denies chills or fever(s) ENT ENT ED: Reports sore throat Cardiovascular Cardiovascular: Denies chest pain Respiratory/Chest Respiratory/Chest: Denies cough or dyspnea Gastrointestinal Gastrointestinal: Reports abdominal pain, nausea and vomiting; Denies diarrhea Genitourinary Genitourinary ED: Reports other Details: Positive vaginal bleeding ; Denies dysuria or hematuria Musculoskeletal Musculoskeletal: Denies myalgias Integumentary Denies rash Neurologic Neurologic: Denies headache(s) Hematologic/Lymphatic Hematologic/Lymphatic: Denies easy bleeding or easy bruising EXAM Physical Exam Const Vital Signs: 04/26/21 01:29 Temperature 97.1 F L Temperature Source Temporal Pulse Rate 125 H Respiratory Rate 16 Blood Pressure 132/94 H Blood Pressure Mean 106 Pulse Ox 94 Oxygen Delivery Method Room Air Positive well nourished and well developed General Appearance ED: well developed HEENT Reports moist mucous membranes HEENT Narrative: No dried blood or active bleeding noted in the posterior pharynx Eyes PERRL and EOMs intact bilaterally Neck supple Neck Narrative: No pain with external manipulation of the thyroid cartilage, no crepitance noted Resp normal respiratory effort and clear to auscultation bilaterally Cardio regular rate and regular rhythm Jugular Venous Distention: other Other Details: Radial pulses are plus 2 out of 4 bilaterally they are equal and symmetric GI GI Narrative: Abdomen is gravid with fundus consistent with reported gestational age. Bowel sounds are hyperactive. There is mild diffuse pain with palpation without voluntary guarding or rigidity. Palpation: soft no CVA tenderness Narrative: External genitalia is normal. Speculum exam reveals a closed cervical os with small amount of discharge but no dried blood or active bleeding noted. heart tones are 145 Extremity normal to inspection Neuro oriented x3 and CN's II-XII intact bilaterally Sensorium / Orientation: alert Psych mental status grossly normal Skin no rashes or lesions noted MDM MDM MDM Narrative Medical decision making narrative: Patient presented to the ER mildly hypertensive and tachycardic but was retching and complaining of abdominal pain. She has been seen in the ER multiple times since had multiple ultrasounds as well as a CT scan on April 14, 2021. These images have revealed no signs of ovarian torsion or placental abruption. A CT scan also revealed no acute abdominal pathology. As the patient left the hospital around 7 PM on April 25 and returned approximately 6 to 7 hours later I felt there was no need for repeat testing or imaging. The case was discussed with her APPLIED BIOLOGY PROFESSOR who recommends treating her nausea with Compazine and Zofran. This was done and her nausea improved but did not resolve and her pain persisted so she was given 1 dose of morphine which is helped her in the past. She did report improvement of pain but it was still present and she did not feel comfortable returning home. Therefore I talked with her APPLIED BIOLOGY PROFESSOR once again and she will be admitted at this time for further care. Discharge Plan Triage Chief Complaint: Vag Bld, Preg ED Provider: Miguel Colon Dx/Rx/DC Orders Clinical Impression: Hyperemesis gravidarum, Abdominal pain during in second trimester Prescriptions: No Action metoclopramide HCl [Reglan] 10 mg tablet 10 mg PO Q6H PRN (Reason: nausea and vomiting) Qty: 30 RF: 0 pantoprazole [Protonix] 40 mg tablet,delayed release (DR/EC) 40 mg PO BID Qty: 60 RF: 0 sucralfate 100 mg/mL suspension 10 ml PO BID 30 Days Qty: 600 RF: 0 meclizine 25 mg tablet 25 mg PO BID PRN (Reason: motion sickness) Qty: 30 RF: 0 Primary Care Provider: Care Physician,No Primary Referrals: Care Physician,No Primary [Primary Care Provider] - Disposition Disposition: Acute Care Hospital [facility]
[2021-04-26] MEDS: 0.9% Normal Saline 1,000 ML 999 ML IV (02:08)
[2021-04-26] MEDS: proCHLORPERazine 10 MG/2 ML Vial IV (02:09)
[2021-04-26] MEDS: Ondansetron 4 MG/2 ML Vial IV ×3 (02:09→10:10)
[2021-04-26] MEDS: Morphine 4 MG/ML Syringe IV (03:11)
[2021-04-26 04:30] VITALS: BP 146/98; PULSE 102; RESP 18; TEMP 36.8; O2SAT 98
[2021-04-26 04:54] VITALS: BMI 36.6
[2021-04-26 04:57] VITALS: BP 144/95; PULSE 94; RESP 18; TEMP 36.3; O2SAT 100
--- NOTE | 2021-04-26 05:22 | NURSING ---
Abdomen palpates soft, no contractions noted, FHR midline below umbilicus. Patient denies contractions. movement felt per RN and patient. FHR 142.
[2021-04-26] MEDS: Potassium Chloride 40 MEQ in Dext 5%-0.45% NS 1,000 ML 150 ML IV (05:24)
[2021-04-26] MEDS: Metoclopramide 10 MG Tablet PO (05:42)
[2021-04-26] MEDS: Sucralfate 1 GM Tablet PO (05:42)
[2021-04-26] MEDS: 0.9% Saline Lock 10 ML Syringe IV (05:42)
[2021-04-26] MEDS: cycloBENZAPRine HCl 10 MG Tablet PO (05:42)
[2021-04-26 06:28] LABS: Absolute Lymphocyte Count 0.72 X10^3/uL (0.83-4.51); Absolute Neutrophil Count 11.4 X10^3/uL (2.0-7.7); Basophil# 0.01 X10^3/uL; Basophil% 0.1 % (0-1); Hematocrit 33.7 % (37-47); Lymphocyte # 0.72 X10^3/ul (0.83-4.51); Lymphocyte % 5.7 % (19-41); Mean Corp Hgb Conc 32.6 g/dL (32-36); Mean Corpuscular Hgb 29.5 pg (27.0-32.0); Mean Corpuscular Volume 90.3 fL (81-99); Mean Platelet Vol. 10.1 fl (6.2-12.0); Monocyte% 3.2 % (0-10); NRBC Flagged by Analyzer 0 % (0-5); Neutrophil # 11.39 X10^3/uL (2.7-7.7); Neutrophil % 90.4 % (47-70); Platelet Count 293 K/mm3 (150-450); RBC Distribution Width CV 13.3 % (11.6-14.6); RBC Distribution Width SD 43.8 fl (35.1-43.9); Red Blood Count 3.73 M/mm3 (4.2-5.4); White Blood Count 12.6 K/mm3 (4.4-11.0)
[2021-04-26 06:52] LABS: ALB/GLOB Ratio 0.7 RATIO (0.9-2.4); AST(SGOT) 141 U/L (15-37); Alanine Aminotransfer ALT/SGPT 307 U/L (13-56); Albumin, Serum 2.7 g/dL (3.2-5.0); Alkaline Phosphatase 101 U/L (45-117); Anion Gap 9 (5-15); BUN 3 mg/dL (7-18); BUN/Creat Ratio 6.1 RATIO (10-20); Calcium,Total 8.1 mg/dL (8.5-10.1); Chloride 105 mmol/L (98-107); EST Glomerular Filtration Rate 161 mL/min (>60); Est Glom Filt Rate - Afr Amer 194 mL/min (>60); Estimated Creatinine Clearance 142.28 ml/min; Globulin 3.8 g/dL (2.2-4.2); Glucose 110 mg/dL (74-106); Potassium 3.3 mmol/L (3.5-5.1); Protein, Total 6.5 g/dL (6.4-8.2); Sodium Level 135 mmol/L (136-145)
--- NOTE | 2021-04-26 07:30 | HP.PCM.OB_ITS ---
HPI - General General Date of Admission: 04/26/21 HPI Narrative BILLY WILSON, is a 25 F who presents with refractory hyperemesis gravidarum. Patient has had 4 hospital admissions in the last [address] of the abdomen and pelvis, no significant leukocytosis or fevers. Patient is status post GI consult which suspected abdominal pain was due to hyperemesis and cannabis toxicity with patient being treated with Haldol in the past. On gallbladder ultrasound she has some biliary sludge but no acute cholecystitis suspected. Patient had a normal anatomy ultrasound on April 24. Patient denies any contractions had a small amount of vaginal bleeding this morning. Maternal Data Information LUPIS Calculator Estimated Delivery Date Method Current WG Current Estimate 09/18/21 LMP (Certain) 19w 2d PFSH PFSH Medical History Hyperemesis gravidarum Marijuana abuse Home Medications metoclopramide HCl [Reglan] 10 mg PO Q6H PRN #30 tab 03/24/21 [Rx Last Taken 04/14/21 09:00] meclizine 25 mg PO BID PRN #30 tab 04/25/21 [Rx Last Taken Unknown] pantoprazole [Protonix] 40 mg PO BID #60 tab 04/25/21 [Rx Last Taken Unknown] sucralfate 10 ml PO BID 30 Days #600 ml 04/25/21 [Rx Last Taken Unknown] Allergy/AdvReac Type Severity Reaction Status Date / Time mushroom Allergy Anaphylaxis Verified 04/26/21 01:34 Family History Mother Cancer Grandmother Cancer Social History Smoking Status: Never smoker alcohol intake: never substance use type: does not use and marijuana caffeine: No what type of physical activity do you participate in: none seatbelt use: always do you feel safe at home: Yes additional social history: Dylon History 2 Elective abortions Hx Para 1 Spontaneous abortions Hx # Term Pregnancies Ectopic pregnancies Hx # Pregnancies Multiple births # of living children Past Pregnancies Del. Date Name GA/Weeks Outcome Route Bth Weight Infant Gen Labor Lgth Anesthesia Del Locatn Provider FOB 02/28/17 Hanna 39 live - full term Delivery Date: 02/28/17 hyperemesis gravidarum Janay Suh Visit Details Expected Delivery Route/Plan Labor Preferences- CB/BF classes: [] labor support person: [] labor intervention preferences: [] pain management options preferred: [] cut cord/dad catch: [] : [] PP control planned: [] discussed possible routes of delivery and associated risks: [] special requests: [] Plans Covid status: [] Flu vaccine: [] Tdap vaccine: [] Rhogam: [] LARC form signed: [] Problem list reviewed and updated with the most current plan of care details and appropriate orders placed. Relevant counseling for the gestational age provided. Continue routine care and follow up unless otherwise noted in visit notes/problem list details OB Flowsheet Initial Weight: Not Recorded Date -?-?-?-?-?-?-?-?-?-?-?-?- EGA Weight BP Urine Prot -?-?-?-?-?-?-?-?-?-?-?-?- Glucose FHR FuHt Pres Dilation -?-?-?-?-?-?-?-?-?-?-?-?- Effaced St Visit Note 03/21/21 -?-?-?-?-?-?-?-?-?-?-?-?- 14w 1d 220 lb 122/84 -?-?-?-?-?-?-?-?-?-?-?--?- -?-?-?-?-?-?-?-?-?-?-?-?- Direct admit to labor and delivery for IV fluids plan [employer] consult 03/25/21 -?-?-?-?-?-?-?-?-?-?-?-?- 15w 0d 218 lb 212 lb 11.937 oz 212 lb 11.937 oz 120/84 121/86 115/98 115/98 141/80 123/79 118/82 131/82 125/77 116/68 96/53 109/62 -?-?-?-?-?-?-?-?-?-?-?-?- -?-?-?-?-?-?-?-?-?-?-?-?- 04/14/21 -?-?-?-?-?-?-?-?-?-?-?-?- 17w 5d 220 lb 211 lb 13.828 oz 142/91 142/91 148/84 131/69 122/69 126/70 112/66 125/73 30 mg/dl (Negative) H -?-?-?-?-?-?-?-?-?-?-?-?- 136 -?-?-?-?-?-?-?-?-?-?-?-?- 04/19/21 -?-?-?-?-?-?-?-?-?-?-?-?- 18w 2d 213 lb 130/80 3+ -?-?-?-?-?-?-?-?-?-?-?-?- Negative 150 -?-?-?-?-?-?-?-?-?-?-?-?- SM- no emesis to day, pain improved last night spontaneously. declining IVFs at this time, [facility] is processing her insurance. 04/22/21 -?-?-?-?-?-?-?-?-?-?-?-?- 19w 1d 210 lb 8.663 oz 116/ 75 119/73 106/64 114/74 123/70 137/77 123/77 133/77 111/58 104/55 104/60 117/66 108/68 -?-?-?-?-?-?-?-?-?-?-?-?- -?-?-?-?-?-?-?-?-?-?-?-?- 04/26/21 -?-?-?-?-?-?-?-?-?-?-?-?- 19w 2d 206 lb 5.643 oz 206 lb 9.17 oz 132/94 146/98 144/95 -?-?-?-?-?-?-?-?-?-?-?-?- -?-?-?-?-?-?-?-?-?-?-?-?- ROS Review of Systems ROS Unobtainable: due to mental status and other Constitutional Constitutional: Reports systems reviewed and no addt'l complaints, except as documented, fatigue and weakness; Denies as per HPI, fever(s), malaise or other Eyes Eyes: Reports systems reviewed and no addt'l complaints, except as documented; Denies as per HPI, change in vision or other ENT HEENT: Reports as per HPI; Denies dizziness, dry mouth, headache(s), loss taste/smell, nasal congestion, nasal discharge, neck pain, sore throat or other Respiratory/Chest Respiratory/Chest: Reports systems reviewed and no addt'l complaints, except as documented and dyspnea on exertion Gastrointestinal Gastrointestinal: Reports systems reviewed and no addt'l complaints, except as documented, abdominal pain, nausea and vomiting Musculoskeletal Musculoskeletal: Reports systems reviewed and no addt'l complaints, except as documented and back pain; Denies joint pain Neurologic Neurologic: Reports systems reviewed and no addt'l complaints, except as documented Psychiatric Psychiatric: Reports systems reviewed and no addt'l complaints, except as documented Endocrine Endocrinology: Reports systems reviewed and no addt'l complaints, except as documented Hematologic/Lymphatic Hematologic/Lymphatic: Reports systems reviewed and no addt'l complaints, except as documented Vital Signs Vital Signs Vital Signs: 04/26/21 01:29 04/26/21 04:30 04/26/21 04:57 Temperature 97.1 F L 98.2 F 97.3 F L Temperature Source Temporal Oral Oral Pulse Rate 125 H 102 H 94 Respiratory Rate 16 18 18 Blood Pressure 132/94 H 146/98 H 144/95 H Blood Pressure Mean 106 114 111 Blood Pressure Source Monitor Blood Pressure Position Semi-Fowlers Blood Pressure Location Left Arm Pulse Ox 94 98 100 Oxygen Delivery Method Room Air Room Air Room Air Weight Weight: 206 lb 9.17 oz Body Mass Index (BMI) 36.6 Physical Exam Const alert and oriented x3 General Appearance: cooperative and anxious Orientation / Consciousness: other Other Details: Visibly uncomfortable and unsettled HEENT normocephalic Face and Sinus: normal facial exam Eyes EOMs intact bilaterally and no scleral icterus General Eye: normal appearance of both eyes Neck full ROM and supple Lymph Lymphatic: no lymphadenopathy noted Chest Chest: abnormal inspection of the chest Resp normal respiratory effort Effort and Inspection: able to speak in complete sentences Cardio regular rate GI soft to palpation Palpation: soft and tender other (lower abdomen radiating bilaterally into low back) external exam normal Speculum Exam - Cervix: other cervix closed thick and high, FHT present and WNL OB / External & Speculum: Negative for bleeding Back/Spine no CVA tenderness Extremity normal to inspection, full ROM and no clubbing, cyanosis or edema General Extremity: Negative for calf tenderness or edema Skin Lesions: no lesions Rashes: no rashes Psych mental status grossly normal Labs Labs Labs: Blood Type AB POSITIVE Hct 33.7 % (37-47) L Hgb 11.0 g/dL (12.0-15.0) L Obstetrics US Syphilis Total Ab Pending Rubella IgG Antibody Pending Hep Bs Antigen Negative (Negative) HIV 1&2 Antibody Pending Assessment & Plan (1) Abdominal pain during in second trimester: COMMENT: questionable narcotic seeking, nl ct scan, RUQ scan biliary sludge, ? sec to hyperemesis or cannabis. fibrinogen, cbc, cmp, urine culture and ua. transport to [facility] for evaluation (2) Cannabis hyperemesis syndrome concurrent with and due to cannabis abuse: COMMENT: s/p GI consult, treated with haldol initially, now on PPI and sucralfate. recommend addiction medicine consult (3) Non compliance with medical treatment: COMMENT: patient admitted to hospital for HG and then didn't return office calls or fu in office for 3 weeks. patient states she was in [place]. upon readmission was not taking medications as prescribed upon discharge. (4) Supervision of high-risk : COMMENT: LUPIS 09/18/21 PC Hanna Dylon (5) : QUALIFIERS: Weeks of gestation: 18 weeks Qualified Code(s): Z3A.18 - 18 weeks gestation of COMMENT: DANIEL [place], labs drawn 04/26 unable to obtain previous labs done at original office (6) Obesity affecting : COMMENT: hga1c checked. (7) Adverse effect of synthetic cannabinoid: COMMENT: still using a bowl a day. discussed risks and side effects, may be causing current symptoms. (8) Elevated liver enzymes: COMMENT: improving lfts this admission. neg hep panel, nl glucose. biliary sludge on RUQ us. likely sec to HG, continue to follow. s/p GI consult will follow up as OP (9) Hyperemesis gravidarum: COMMENT: pepcid, zofran and compazine scheduled, reglan PRN. [facility] consult for reglan pump and IVFs. patient has been noncompliant with seeking insurance coverage so unable to obtain [facility] consult PLAN: see above plan comments for plan details Charges/Coding Visit Charges OBSV E&M: [id number] Initial observation care L3
--- NOTE | 2021-04-26 07:34 | NURSING ---
Radiology states that they will electronically send the imaging to [facility].
[2021-04-26 08:26] LABS: Rubella IgG Reactive (Nonreactive); Syphilis Antibodies Non-reactive
[2021-04-26 08:41] LABS: HIV - WCH Non-Reactive (Nonreactive)
[2021-04-26 08:45] LABS: Amphetamine Urine VISTA NEGATIVE (<1000 ng/mL); Barbiturate Urine VISTA NEGATIVE (< 200 ng/mL); Benzodiazepine Urine VISTA NEGATIVE (< 200 ng/mL); Cocaine Urine VISTA NEGATIVE (< 300 ng/mL); Ecstacy Urine VISTA NEGATIVE (< 500 ng/mL); Methadone Urine VISTA NEGATIVE (< 300 ng/mL); PCP Urine VISTA NEGATIVE (< 25 ng/mL); THC Urine VISTA POSITIVE (< 50 ng/mL); Vista UDS pH Range 6
[2021-04-26 09:19] LABS: Fibrinogen 500 mg/dl (203-444)
[2021-04-26] MEDS: Pantoprazole Sodium 40 MG Tablet PO (10:10)
[2021-04-26 10:30] VITALS: BP 124/77; PULSE 71; RESP 20; TEMP 36.6; O2SAT 97
--- NOTE | 2021-04-26 11:08 | CASEMGMT ---
Social Work SW met with pt in room to discuss Medicaid application again. Pt lying in bed moaning, stating she is in much pain and nauseous. SW inquired if she had time to fill out paperwork for Medicaid when at home last night. Pt denies stating all the papers are in her car and she was unable to do anything with the Medicaid process as she came back to the hospital shortly after she returned home. SW inquired if pt can ask her to assist with paperwork as he is at home and she is hospitalized with plans to be transferred to [facility] today. Pt states he is going to have to do it. SW inquired if this SW can call pt and explain importance of completing process and pt denied stating pt is leaving for work at this time and will not be home until 11pm. SW reiterated the importance to complete Medicaid paperwork as lack of insurance is limiting options of help for her. Pt expresses understanding. SW prompted pt to call and provide instructions on where the needed paperwork is and how to fill out and submit to Medicaid. Pt stating she would do this. SW also asked pt about grandmother listed on demo sheet or if other family could help her complete paperwork. Pt denies stating her would be the one to assist. Pt stating she does not know where her Social Security Card is at. SW emphasized importance of completing all other paperwork as soon as possible and communicate with [facility] that card is lost. Pt to be transferred to [facility] when bed available. Pt aware and has all paperwork needed to submit for Medicaid application. HORTENCIA Alonso
[2021-04-26 12:27] LABS: Chlamydia Trachomatis by PCR Negative (Negative); Neisserai gonorrhoeae by PCR Negative (Negative); Probe Check PASS; Sample Adequacy Control PASS; Specimen Processing Control PASS
--- NOTE | 2021-04-26 14:55 | NURSING ---
Patient called out and states she needs to sign out AMA. She states she does not want to go to [place] and be so far away from her family. She states she has been talking with her mother and her mother wants her to come back to [place] and stay with her. Dr. Suh was made aware of all of the above and states she is not recommending the patient sign out AMA but she will respect her decision. She also states that if she signs out AMA she will receive a discharge letter from her office. Patient is aware of what Dr. Suh said and still is choosing to leave AMA.
--- NOTE | 2021-04-26 15:25 | PN_ITS ---
Progress Note I was notified by the patient's nurse that patient is stating she will leave the hospital now AGAINST MEDICAL ADVICE and is refusing to be transported to [facility] for further management. She states she is going to go back to [place] for care. I explained to the nurse that I was unable to leave the office right now but if she waits until 5:00 I can come talk to her about this. This morning I had recommended her to be transported to [facility] in order to be evaluated and receive care by maternal- medicine specialist due to her recurrent si gnificant symptoms. Patient initially agreed to transport this morning. I communicated to the nurse that if patient leaves AGAINST MEDICAL ADVICE our practice will be discharging her from our care due to her endangering herself and her baby by not following with Dr. Sotelo and my's medical recommendation to seek immediate care by maternal- medicine specialist. We will provide care as required by state law as she transitions to new care for the next 30 days if this is what she chooses. Patient then proceeded to leave AGAINST MEDICAL ADVICE after informed of this neck step of termination.
== END 2021-04-26 15:00 | disposition left against medical advice (07) ==
LOC: ED 04:00 → MS2 04:40
PROVIDERS: Admitting Provider Obstetrics & Gynecology; Emergency Provider Emergency Medicine; Visit Provider Obstetrics & Gynecology
DX: O21.0 Mild hyperemesis gravidarum (principal); F12.188 Cannabis abuse with other cannabis-induced disorder; Z3A.19 19 weeks gestation of pregnancy; O99.322 Drug use complicating pregnancy, second trimester; K83.8 Other specified diseases of biliary tract; O26.892 Other specified pregnancy related conditions, second trimester; O26.612 Liver and biliary tract disorders in pregnancy, second trimester; Z91.19 Patient's noncompliance with other medical treatment and regimen; Z79.899 Other long term (current) drug therapy
CPT/HCPCS: 36415; 80053; 80307; 85025; 85384; 86703; 86762; 86780; 87491; 87591; 96361; 96374; 96375; 96376; 99218; 99284; J7030; A4216; G0378; J2405; J7799

== ENCOUNTER 2021-04-28 08:15 | Emergency (ER) | payer SELFPAY ==
[2021-04-28 08:16] VITALS: BP 132/91; PULSE 121; RESP 18; TEMP 36.1; O2SAT 98; BMI 37.3
--- NOTE | 2021-04-28 09:08 | EDS_ITS ---
HPI HPI - GI History of Present Illness Chief Complaint: Nausea/Vomiting Narrative Narrative: 25-year-old female with history of cannabinoid hyperemesis syndrome, high risk , elevated liver enzymes, hyperemesis gravidarum presenting with nausea and vomiting. She states she vomited about 15 times overnight. She reports an episode of syncope. She states this is why she came. She states she does not have the abdominal pain she usually has but is feeling nauseous. She has Zofran and Phenergan at home but is not taking this and she states that Dr. Cotton has her on meclizine and sulcal fate as well as Protonix. Patient states that with during her last visit she was to be transferred to [place] for high risk and she decided she was going to sign out AGAINST MEDICAL ADVICE and go back to [place] to see her previous RESIDENTIAL MORTGAGE UNDERWRITER. She reports that after she got home she was too sick to travel and did not go to see her RESIDENTIAL MORTGAGE UNDERWRITER. She reports that Dr. Suh wanted her to find a new RESIDENTIAL MORTGAGE UNDERWRITER because she signed out AGAINST MEDICAL ADVICE. She has not established with another physician yet. She states that she has to stay in [place] now. [facility] Medical History Hyperemesis gravidarum Marijuana abuse Home Medications metoclopramide HCl [Reglan] 10 mg PO Q6H PRN #30 tab 03/24/21 [Rx Last Taken 04/14/21 09:00] meclizine 25 mg PO BID PRN #30 tab 04/25/21 [Rx Last Taken Unknown] pantoprazole [Protonix] 40 mg PO BID #60 tab 04/25/21 [Rx Last Taken Unknown] sucralfate 10 ml PO BID 30 Days #600 ml 04/25/21 [Rx Last Taken Unknown] Allergy/AdvReac Type Severity Reaction Status Date / Time mushroom Allergy Anaphylaxis Verified 04/28/21 08:18 Family History Mother Cancer Grandmother Cancer Social History Smoking Status: Never smoker alcohol intake: never substance use type: does not use and marijuana caffeine: No what type of physical activity do you participate in: none seatbelt use: always do you feel safe at home: Yes additional social history: Dylon ROS ROS ED Constitutional Constitutional ED: Denies chills or fever(s) ENT ENT ED: Denies rhinorrhea or sore throat Cardiovascular Cardiovascular: Denies chest pain or palpitations Respiratory/Chest Respiratory/Chest: Denies cough or dyspnea Gastrointestinal Gastrointestinal: Reports nausea and vomiting; Denies abdominal pain, constipation or diarrhea Genitourinary Genitourinary ED: Denies dysuria or hematuria Musculoskeletal Musculoskeletal: Denies arthralgias, myalgias or neck pain Integumentary Denies Abrasions or rash Neurologic Neurologic: Denies headache(s) or paresthesias EXAM Physical Exam Const Vital Signs: 04/28/21 08:16 04/28/21 11:41 Temperature 96.9 F L Temperature Source Temporal Pulse Rate 121 H 94 Respiratory Rate 18 18 Blood Pressure 132/91 H 114/70 Blood Pressure Mean 104 84 Pulse Ox 98 98 Oxygen Delivery Method Room Air Room Air Positive well nourished General Appearance ED: NAD; Negative for pallor HEENT Reports moist mucous membranes normocephalic and atraumatic Eyes PERRL and EOMs intact bilaterally Neck no lymphadenopathy and supple Resp normal respiratory effort and clear to auscultation bilaterally Cardio regular rate and regular rhythm GI non-tender and non-distended Palpation: soft Neuro Sensorium / Orientation: alert, oriented to person, oriented to place and oriented to time Psych mental status grossly normal and thought process normal Skin General Skin Exam: Negative for jaundice or pallor MDM MDM MDM Narrative Medical decision making narrative: Patient presented with nausea and vomiting. She was treated with Compazine and Zofran and feels improvement. She was also given a liter of IV fluids. He is not complaining of significant abdominal pain. She is noted to have a normal CBC and her potassium is slightly low at 3.0. Since her nausea is improved I will discharge her with her prescription for potassium to replete as I do not want to make her more nauseous here in the ER. hCG is 11,000, 186. Urinalysis shows 500 leukocyte esterase and also is contaminated. She also has urinary ketones. Her urine drug screen is positive for cannabinoids once again. Ultrasound obtained and is normal. Since the patient is no longer established with Dr. Suh and is supposed to see high risk maternal medicine and I counseled her to set up this appointment. She acknowledged understanding. Patient stable for discharge. Impression: 1. Hyperemesis gravidarum 2. Hypokalemia Lab Data Attestation: I reviewed the patient's lab results. Labs: Laboratory Results - last 24 hr 04/28/21 04/28/21 04/28/21 09:30 09:30 09:30 WBC 8.5 RBC 4.06 L Hgb 12.3 Hct 37.0 MCV 91.1 MCH 30.3 MCHC 33.2 RDW Std Deviation 46.9 H RDW Coeff of Irena 14.2 Plt Count 335 MPV 10.3 Immature Gran % (Auto) 0.400 Neut % (Auto) 79.9 H Lymph % (Auto) 14.2 L Ross % (Auto) 5.2 Eos % (Auto) 0.1 Baso % (Auto) 0.2 Absolute Neuts (auto) 6.8 Absolute Lymphs (auto) 1.20 Nucleated RBC % 0 Sodium 137 Potassium 3.0 L Chloride 101 Carbon Dioxide 28.0 Anion Gap 8 BUN 8 Creatinine 0.67 Estim Creat Clear Calc 106.18 Est GFR (MDRD) Af Amer 138 Est GFR (MDRD) Non-Af 114 BUN/Creatinine Ratio 12.0 Glucose 103 Calcium 8.8 Total Bilirubin 0.90 AST 115 H ALT 305 H Alkaline Phosphatase 101 Troponin I High Sens 4 Total Protein 6.9 Albumin 2.9 L Globulin 4.0 Albumin/Globulin Ratio 0.7 L HCG, Quant 98684 H Urine Color Urine Clarity Urine pH Ur Specific [place] Urine Protein Urine Glucose (UA) Urine Ketones Urine Occult Blood Urine Nitrite Urine Bilirubin Urine Urobilinogen Ur Leukocyte Esterase Urine RBC Urine WBC Ur Squamous Epith Cells Urine Bacteria Urine Mucus Urine Opiates Screen Urine Methadone Screen Ur Barbiturates Screen Ur Phencyclidine Scrn Ur Amphetamines Screen U Methamphetamin-MDMA U Benzodiazepines Scrn Urine Cocaine Screen U Cannabinoids Screen Ur Drug Screen Comment 04/28/21 04/28/21 10:35 10:35 WBC RBC Hgb Hct MCV MCH MCHC RDW Std Deviation RDW Coeff of Irena Plt Count MPV Immature Gran % (Auto) Neut % (Auto) Lymph % (Auto) Ross % (Auto) Eos % (Auto) Baso % (Auto) Absolute Neuts (auto) Absolute Lymphs (auto) Nucleated RBC % Sodium Potassium Chloride Carbon Dioxide Anion Gap BUN Creatinine Estim Creat Clear Calc Est GFR (MDRD) Af Amer Est GFR (MDRD) Non-Af BUN/Creatinine Ratio Glucose Calcium Total Bilirubin AST ALT Alkaline Phosphatase Troponin I High Sens Total Protein Albumin Globulin Albumin/Globulin Ratio HCG, Quant Urine Color Yellow Urine Clarity Sl. Cloudy Urine pH 6.5 Ur Specific [place] 1.020 Urine Protein 15 H Urine Glucose (UA) Normal Urine Ketones 50 H Urine Occult Blood Negative Urine Nitrite Negative Urine Bilirubin 1 H Urine Urobilinogen 8 H Ur Leukocyte Esterase 500 H Urine RBC 0-5 SEEN Urine WBC 5-10 SEEN Ur Squamous Epith Cells 5-10 SEEN Urine Bacteria 2+ Urine Mucus 1+ Urine Opiates Screen NEGATIVE Urine Methadone Screen NEGATIVE Ur Barbiturates Screen NEGATIVE Ur Phencyclidine Scrn NEGATIVE Ur Amphetamines Screen NEGATIVE U Methamphetamin-MDMA NEGATIVE U Benzodiazepines Scrn NEGATIVE Urine Cocaine Screen NEGATIVE U Cannabinoids Screen POSITIVE H Ur Drug Screen Comment Radiography Diagnostic Testing: Clinical Impression(s) from Imaging Studies Obstetrics Ultrasound 04/28/21 10:54 IMPRESSION: Normal and amount is seen. Electronically Signed: Elgin Horner MD at 11:38 EST , Service support , Discharge Plan Triage Chief Complaint: Nausea/Vomiting ED Provider: Olayinka Finnegan Dx/Rx/DC Orders Instructions: ED Hyperemesis Gravidarum Prescriptions: No Action metoclopramide HCl [Reglan] 10 mg tablet 10 mg PO Q6H PRN (Reason: nausea and vomiting) Qty: 30 RF: 0 pantoprazole [Protonix] 40 mg tablet,delayed release (DR/EC) 40 mg PO BID Qty: 60 RF: 0 sucralfate 100 mg/mL suspension 10 ml PO BID 30 Days Qty: 600 RF: 0 meclizine 25 mg tablet 25 mg PO BID PRN (Reason: motion sickness) Qty: 30 RF: 0 Primary Care Provider: Care Physician,No Primary Referrals: Care Physician,No Primary [Primary Care Provider] - Disposition Disposition: Home, Self Care Discharge Date/Time: 04/28/21 12:38
--- NOTE | 2021-04-28 09:08 | EKG12_ITS ---
Test Reason : NAUSEA/VOMITING Blood Pressure : / mmHG Vent. Rate : 080 BPM Atrial Rate : 080 BPM P-R Int : 116 ms QRS Dur : 080 ms QT Int : 362 ms P-R-T Axes : 020 049 015 degrees QTc Int : 417 ms Normal sinus rhythm Normal ECG Confirmed by HARSH FLYNN, NAN ([id number]), video tape editor GAIL KEEN ([id number]) on 05/01/2021 11:03:46 AM Referred By: SHEY Confirmed By:NAN HOUSE MD
--- NOTE | 2021-04-28 09:12 | ED.RN ---
NO OLD EKGS
[2021-04-28] MEDS: proCHLORPERazine 10 MG/2 ML Vial IV (09:40)
[2021-04-28] MEDS: Ondansetron 4 MG/2 ML Vial IV (09:41)
[2021-04-28] MEDS: 0.9% Normal Saline 1,000 ML 999 ML IV (09:41)
[2021-04-28 09:44] LABS: Absolute Neutrophil Count 6.8 X10^3/uL (2.0-7.7); Basophil# 0.02 X10^3/uL; Basophil% 0.2 % (0-1); Eosinophil# 0.01 X10^3/uL; Eosinophils% 0.1 % (0-5); Hemoglobin 12.3 g/dL (12.0-15.0); Lymphocyte % 14.2 % (19-41); Mean Corp Hgb Conc 33.2 g/dL (32-36); Mean Corpuscular Hgb 30.3 pg (27.0-32.0); Mean Corpuscular Volume 91.1 fL (81-99); Mean Platelet Vol. 10.3 fl (6.2-12.0); Monocyte# 0.44 X10^3/uL; Monocyte% 5.2 % (0-10); NRBC Flagged by Analyzer 0 % (0-5); Neutrophil # 6.78 X10^3/uL (2.7-7.7); Neutrophil % 79.9 % (47-70); Platelet Count 335 K/mm3 (150-450); RBC Distribution Width CV 14.2 % (11.6-14.6); RBC Distribution Width SD 46.9 fl (35.1-43.9); Red Blood Count 4.06 M/mm3 (4.2-5.4); White Blood Count 8.5 K/mm3 (4.4-11.0)
[2021-04-28 10:03] LABS: ALB/GLOB Ratio 0.7 RATIO (0.9-2.4); AST(SGOT) 115 U/L (15-37); Alanine Aminotransfer ALT/SGPT 305 U/L (13-56); Albumin, Serum 2.9 g/dL (3.2-5.0); Alkaline Phosphatase 101 U/L (45-117); Anion Gap 8 (5-15); BUN 8 mg/dL (7-18); Calcium,Total 8.8 mg/dL (8.5-10.1); Chloride 101 mmol/L (98-107); Creatinine, Serum 0.67 mg/dL (0.55-1.02); EST Glomerular Filtration Rate 114 mL/min (>60); Est Glom Filt Rate - Afr Amer 138 mL/min (>60); Estimated Creatinine Clearance 106.18 ml/min; Glucose 103 mg/dL (74-106); Protein, Total 6.9 g/dL (6.4-8.2); Sodium Level 137 mmol/L (136-145); Troponin-I HS 4 pg/mL (3.0-54.0)
[2021-04-28 10:27] LABS: hCG Titer Quant., Serum 11186 mIU/mL (1-3)
[2021-04-28 10:44] LABS: Color, Urine Yellow (Yellow); Glucose, Dipstick Normal (Normal); Ketone-Dipstick 50 mg/dl (Negative); Leukocyte Esterase-Dipstick 500 /ul (Negative); Nitrite-Dipstick Negative (Negative); Occult Blood-Urine Negative /ul (Negative); Protein-Dipstick 15 mg/dl (Negative); Urine Clarity Sl. Cloudy (Clear); Urine Urobilinogen 8 mg/dl (Normal); Urine pH 6.5 (5.0 - 8.0)
[2021-04-28 10:45] LABS: Urine Bilirubin Dipstick 1 mg/dL (Negative)
[2021-04-28 10:53] LABS: Bacteria 2+ /hpf (None Seen); Mucous, Urine 1+ /hpf (<or=2+); Red Blood Cells-Urine 0-5 SEEN /hpf (0-5); Squamous Epithelial Cells - UA 5-10 SEEN /hpf (5-10); White Blood Cells 5-10 SEEN /hpf (0-5)
--- NOTE | 2021-04-28 10:54 | US_ITS ---
STUDY: SECOND AND THIRD TRIMESTER OBSTETRICAL ULTRASOUND REASON FOR EXAM: Female, 25 years old well being LMP: 12/12/2020. TECHNIQUE: Transabdominal TECHNICAL QUALITY: Adequate. PRIOR ULTRASOUND: Comparison is made with prior study dated 04/24/2021. FINDINGS: There is a single intrauterine fetus. The fetus is in a cephalic presentation. There is demonstrated cardiac activity with a heart rate of 152 bpm. There is a normal amniotic fluid volume. The largest amniotic fluid pocket measures 4.7 cm x 4.5 cm. The amniotic fluid index (LORNA) is within normal limits. The placenta is anterior in location and is not low lying. There are Grade 0 placental changes. The cervix measures 3.4 cm in length. The bilateral adnexal regions are normal. BIOMETRY: age by prior US: 19 weeks, 2 days. LUPIS by prior US: 09/20/2021. Age by LMP: 19 weeks, 4 days. LUPIS by LMP: 09/18/2021.. US/OB Limited (No Biometrics) IMPRESSION: Normal and amount is seen. Electronically Signed: Elgin Horner MD at 11:38 EST , Service support ,
[2021-04-28 10:56] LABS: Amphetamine Urine VISTA NEGATIVE (<1000 ng/mL); Barbiturate Urine VISTA NEGATIVE (< 200 ng/mL); Benzodiazepine Urine VISTA NEGATIVE (< 200 ng/mL); Cocaine Urine VISTA NEGATIVE (< 300 ng/mL); Ecstacy Urine VISTA NEGATIVE (< 500 ng/mL); Methadone Urine VISTA NEGATIVE (< 300 ng/mL); PCP Urine VISTA NEGATIVE (< 25 ng/mL); THC Urine VISTA POSITIVE (< 50 ng/mL); Vista UDS pH Range 5
[2021-04-28 11:41] VITALS: BP 114/70; PULSE 94; RESP 18; O2SAT 98
== END 2021-04-28 12:38 | disposition home or self-care (01) ==
PROVIDERS: Emergency Provider Student in an Organized Health Care Education/Training Program; Visit Provider Student in an Organized Health Care Education/Training Program
DX: R11.2 Nausea with vomiting, unspecified (principal); F12.90 Cannabis use, unspecified, uncomplicated; E87.6 Hypokalemia; Z79.899 Other long term (current) drug therapy
CPT/HCPCS: 76815; 80053; 80307; 81001; 84484; 84702; 85025; 93005; 96361; 96374; 96375; 99285; J7030; A4216; J2405

== ENCOUNTER 2021-05-03 08:23 | Outpatient (CLI) | payer SELFPAY ==
--- NOTE | 2021-05-03 08:25 | US_ITS ---
STUDY: SECOND AND THIRD TRIMESTER OBSTETRICAL ULTRASOUND REASON FOR EXAM: Female, 25 years old /anatomy follow up LMP: 12/12/2020 TECHNIQUE: Transabdominal and Transvaginal TECHNICAL QUALITY: Adequate. PRIOR ULTRASOUND: 04/28/2021 FINDINGS: There is a single intrauterine fetus. The fetus is in a cephalic presentation. There is demonstrated cardiac activity with a heart rate of 138 bpm. There is a normal amniotic fluid volume. The largest amniotic fluid pocket measures 8.3 cm. The amniotic fluid index (LORNA) is cm. The placenta is anterior in location and is not low lying. There are Grade 1 placental changes. The cervix measures 3.4 cm in length. The adnexal regions are not visualized. Age by LMP: 20 weeks, 2 days. LUPIS by LMP: 09/18/2021. ANATOMY: Gender: Male Cranium: Normal lateral ventricles. Normal choroid plexus. Normal cerebellum. Normal cisterna magna. Normal face, nose and lips. Chest: Normal 4-chamber heart. Abdomen/Pelvis: Normal diaphragm. Normal stomach. Normal abdominal wall. Normal cord insertion. Normal 3 vessel cord. Normal kidneys. Normal bladder. Spine: Normal cervical spine. Normal thoracic spine. Normal lumbar spine. Normal sacrum. Extremities: Normal bilateral upper extremities. Normal bilateral lower extremities. US/OB Limited (No Biometrics) IMPRESSION: Living intrauterine of 20 weeks 2 days as described above. Electronically Signed: Eloy Vidales MD at 12:40 EST Tel , Service support , Refer to OB ultrasound Electronically Signed: Eloy Vidales MD at 12:40 EST Tel , Service support ,
== END 2021-05-03 23:59 | disposition short-term general hospital (02) ==
PROVIDERS: Referring Provider Obstetrics & Gynecology; Visit Provider Obstetrics & Gynecology
DX: Z34.92 Encounter for supervision of normal pregnancy, unspecified, second trimester (principal)
CPT/HCPCS: 76815; 76817

== ENCOUNTER 2021-05-25 00:15 | Outpatient (CLI) | payer SELFPAY ==
[2021-05-25] VITALS (44 sets, daily range): BP systolic 104–134; BP diastolic 57–82; PULSE 95–123; RESP 16; TEMP 35.9–37; O2SAT 91–100; BMI 38.4
[2021-05-25] MEDS: proCHLORPERazine 10 MG/2 ML Vial IV ×2 (01:00→07:15)
[2021-05-25] MEDS: 0.9% Saline Lock 10 ML Syringe IV (01:00)
[2021-05-25] MEDS: Dextrose 5%-Lactated Ringers 1,000 ML 999 ML IV (01:02)
[2021-05-25 01:49] LABS: ROM Internal Control Test YES-OK TO RESULT pt. (Internal QC); ROM Patient Test Negative (Negative)
[2021-05-25] MEDS: Lactated Ringers 1,000 ML 999 ML IV ×3 (02:12→04:17)
[2021-05-25 02:15] LABS: Absolute Lymphocyte Count 1.33 X10^3/uL (0.83-4.51); Absolute Neutrophil Count 11.4 X10^3/uL (2.0-7.7); Basophil# 0.01 X10^3/uL; Basophil% 0.1 % (0-1); Hematocrit 32.5 % (37-47); Hemoglobin 11.2 g/dL (12.0-15.0); Lymphocyte # 1.33 X10^3/ul (0.83-4.51); Mean Corp Hgb Conc 34.5 g/dL (32-36); Mean Corpuscular Hgb 31.5 pg (27.0-32.0); Mean Corpuscular Volume 91.5 fL (81-99); Mean Platelet Vol. 10.6 fl (6.2-12.0); Monocyte% 3.8 % (0-10); NRBC Flagged by Analyzer 0 % (0-5); Neutrophil # 11.36 X10^3/uL (2.7-7.7); Neutrophil % 85.6 % (47-70); Platelet Count 386 K/mm3 (150-450); RBC Distribution Width CV 13.4 % (11.6-14.6); RBC Distribution Width SD 44.5 fl (35.1-43.9); Red Blood Count 3.55 M/mm3 (4.2-5.4); White Blood Count 13.3 K/mm3 (4.4-11.0)
[2021-05-25 02:28] LABS: ALB/GLOB Ratio 0.6 RATIO (0.9-2.4); AST(SGOT) 19 U/L (15-37); Alanine Aminotransfer ALT/SGPT 22 U/L (13-56); Albumin, Serum 2.7 g/dL (3.2-5.0); Alkaline Phosphatase 137 U/L (45-117); Anion Gap 11 (5-15); BUN 7 mg/dL (7-18); BUN/Creat Ratio 9.2 RATIO (10-20); Calcium,Total 8.9 mg/dL (8.5-10.1); Chloride 106 mmol/L (98-107); Creatinine, Serum 0.76 mg/dL (0.55-1.02); EST Glomerular Filtration Rate 98 mL/min (>60); Est Glom Filt Rate - Afr Amer 118 mL/min (>60); Estimated Creatinine Clearance 93.61 ml/min; Globulin 4.2 g/dL (2.2-4.2); Glucose 145 mg/dL (74-106); Potassium 3.2 mmol/L (3.5-5.1); Protein, Total 6.9 g/dL (6.4-8.2); Sodium Level 136 mmol/L (136-145)
[2021-05-25 02:59] LABS: Color, Urine Yellow (Yellow); Glucose, Dipstick 1000 mg/dl (Normal); Leukocyte Esterase-Dipstick Negative /ul (Negative); Mucous, Urine 0 SEEN /hpf (<or=2+); Nitrite-Dipstick Negative (Negative); Occult Blood-Urine Negative /ul (Negative); Protein-Dipstick Negative (Negative); Specific Gravity, Urine 1.015 (1.002-1.030); Urine Bilirubin Dipstick Negative (Negative); Urine Clarity Clear (Clear); Urine Urobilinogen Normal (Normal)
[2021-05-25 03:08] LABS: Ketone-Dipstick 150 mg/dl (Negative)
[2021-05-25 03:14] LABS: Bacteria 1+ /hpf (None Seen); Red Blood Cells-Urine 0-5 SEEN /hpf (0-5); Squamous Epithelial Cells - UA 0-5 SEEN /hpf (5-10); White Blood Cells 0-5 SEEN /hpf (0-5)
[2021-05-25 03:16] LABS: BUP Internal Control LINE = VALID (VALID); Buprenorphine Drug Screen Negative (<10 ng/mL)
[2021-05-25 03:28] LABS: Amphetamine Urine VISTA NEGATIVE (<1000 ng/mL); Barbiturate Urine VISTA NEGATIVE (< 200 ng/mL); Benzodiazepine Urine VISTA NEGATIVE (< 200 ng/mL); Cocaine Urine VISTA NEGATIVE (< 300 ng/mL); Ecstacy Urine VISTA NEGATIVE (< 500 ng/mL); Methadone Urine VISTA NEGATIVE (< 300 ng/mL); PCP Urine VISTA NEGATIVE (< 25 ng/mL); THC Urine VISTA NEGATIVE (< 50 ng/mL); Vista UDS pH Range 8
[2021-05-25] MEDS: Ondansetron 4 MG/2 ML Vial IV (03:59)
[2021-05-25] MEDS: Acetaminophen 500 MG Tablet 1000 MG PO (04:46)
[2021-05-25] MEDS: Lactated Ringers 1,000 ML 125 ML IV (05:19)
--- NOTE | 2021-05-25 07:20 | OB.TRI.HP_ITS ---
HPI - General HPI Narrative BILLY WILSON, is a 25 @ 23 weeks 3 days who presents to L&D with recurrent severe abdominal pains. She has been admitted in the past and is being followed by GI for chronic cannabis use and presumed cannabis intoxication. She states that she was just approved for [employer] insurance but still has not been able to get her Reglan pump started. GI has her on Meclezine and an antacid and pro, methazine for breakthrough nausea. The patient state that when she is in the shower her pain goes from 10/10 to a zero however the nausea is not improving. She denies lof,vaginal bleeding or dec fm. She was dismissed from our practice about 15 days ago for non-compliance and is to follow up with [facility] and [facility]. She states that she has her first appt on 06/07/21 but is unsure who the doctor is. Maternal Data Information LUPIS Calculator Estimated Delivery Date Method Current WG Current Estimate 09/18/21 LMP (Certain) 23w 3d [facility] Medical History Hyperemesis gravidarum Marijuana abuse Home Medications meclizine 25 mg PO BID PRN #30 tab 04/25/21 [Rx Last Taken 05/24/21 09:00] pantoprazole [Protonix] 40 mg PO BID #60 tab 04/25/21 [Rx Last Taken 05/24/21 09:00] sucralfate 10 ml PO BID 30 Days #600 ml 04/25/21 [Rx Last Taken 05/24/21 09:00] zalylqmx-bgc-Dp-FA [] 1 tab PO DAILY 05/25/21 [History Last Taken 05/23/21 09:00] Allergy/AdvReac Type Severity Reaction Status Date / Time mushroom Allergy Anaphylaxis Verified 05/25/21 00:47 Family History Mother Cancer Grandmother Cancer Social History Smoking Status: Never smoker alcohol intake: never substance use type: does not use and marijuana caffeine: No what type of physical activity do you participate in: none seatbelt use: always do you feel safe at home: Yes additional social history: Dylon History 2 Elective abortions Hx Para 1 Spontaneous abortions Hx # Term Pregnancies Ectopic pregnancies Hx # Pregnancies Multiple births # of living children Past Pregnancies Del. Date Name GA/Weeks Outcome Route Bth Weight Gen Labor Lgth Anesthesia Del Locatn Provider FOB 02/28/17 Hanna 39 live - full term Delivery Date: 02/28/17 hyperemesis gravidarum Janay Suh Visit Details Expected Delivery Route/Plan Labor Preferences- CB/BF classes: [] labor support person: [] labor intervention preferences: [] pain management options preferred: [] cut cord/dad catch: [] : [] PP control planned: [] discussed possible routes of delivery and associated risks: [] special requests: [] Plans Covid status: [] Flu vaccine: [] Tdap vaccine: [] Rhogam: [] LARC form signed: [] Problem list reviewed and updated with the most current plan of care details and appropriate orders placed. Relevant counseling for the gestational age provided. Continue routine care and follow up unless otherwise noted in visit notes/problem list details OB Flowsheet Initial Weight: Not Recorded Date -?-?-?-?-?-?-?-?-?-?-?-?- EGA Weight BP Urine Prot -?-?-?-?-?-?-?-?-?-?-?-?- Glucose FHR FuHt Pres Dilation -?-?-?-?-?-?-?-?-?-?-?-?- Effaced St Visit Note 03/21/21 -?-?-?-?-?-?-?-?-?-?-?-?- 14w 1d 220 lb 122/84 -?-?-?-?-?-?-?-?-?-?-?-?- -?-?-?-?-?--?-?-?-?-?-?-?- Direct admit to labor and delivery for IV fluids plan Optum consult 03/25/21 -?-?-?-?-?-?-?-?-?-?-?-?- 15w 0d 218 lb 212 lb 11.937 oz 212 lb 11.937 oz 120/84 121/86 115/98 115/98 141/80 123/79 118/82 131/82 125/77 116/68 96/53 109/62 -?-?-?-?-?-?-?-?-?-?-?-?- -?-?-?-?-?-?-?-?-?-?-?-?- 04/14/21 -?-?-?-?-?-?-?-?-?-?-?-?- 17w 5d 220 lb 211 lb 13.828 oz 142/91 142/91 148/84 131/69 122/69 126/70 112/66 125/73 30 mg/dl (Negative) H -?-?-?-?-?-?--?-?-?-?-?-?- 136 -?-?-?-?-?-?-?-?-?-?-?-?- 04/19/21 -?-?-?-?-?-?-?-?-?-?-?-?- 18w 2d 213 lb 130/80 3+ -?-?-?-?-?-?-?-?-?-?-?-?- Negative 150 -?-?-?-?-?-?-?-?-?-?-?-?- SM- no emesis to day, pain improved last night spontaneously. declining IVFs at this time, optum is processing her insurance. 04/22/21 -?-?-?-?-?-?-?-?-?-?-?-?- 19w 1d 210 lb 8.663 oz 116/ 75 119/73 106/64 114/74 123/70 137/77 123/77 133/77 111/58 104/55 104/60 117/66 108/68 -?-?-?-?-?-?-?-?-?-?-?-?- -?-?-?-?-?-?-?-?-?-?-?-?- 04/26/21 -?-?-?-?-?-?-?-?-?-?-?-?- 19w 2d 206 lb 5.643 oz 206 lb 9.17 oz 132/94 146/98 144/95 124/77 Cancelled -?-?-?-?-?-?-?-?-?-?-?-?- -?-?-?-?-?-?-?-?-?-?-?-?- 05/25/21 -?-?-?-?-?-?-?-?-?-?-?-?- 23w 3d 217 lb 128/82 134/80 120/67 Negative mg/dl (Nega tive) -?-?-?-?-?-?-?-?-?-?-?-?- -?-?-?-?-?-?-?-?-?-?-?-?- ROS Constitutional Constitutional: Reports systems reviewed and no addt'l complaints, except as documented Gastrointestinal Gastrointestinal: Denies bloating, constipation, cramping or diarrhea Genitourinary Genitourinary: Reports other Details: Denies vaginal odor, vaginal bleeding, or vaginal discharge ; Denies difficulty urinating or flank pain Physical Exam HEENT normocephalic Resp normal respiratory effort and normal air movement no CVA tenderness and external exam normal Speculum Exam - Cervix: cervical os open and other 1/50/floating Extremity normal to inspection General Extremity: edema bilateral (trace ) NST FHR Rate Baby A Baseline: 140 Uterine Activity:: no contractions noted. Assessment & Plan (1) Abdominal pain during in second trimester: COMMENT: questionable narcotic seeking, nl ct scan, RUQ scan biliary sludge, ? sec to hyperemesis or cannabis. fibrinogen, cbc, cmp, urine culture and ua. transport to [facility] for evaluation (2) Cannabis hyperemesis syndrome concurrent with and due to cannabis abuse: COMMENT: s/p GI consult, treated with haldol initially, now on PPI and sucralfate. recommend addiction medicine consult (3) Non compliance with medical treatment: COMMENT: patient admitted to hospital for HG and then didn't return office calls or fu in office for 3 weeks. patient states she was in [place]. upon readmission was not taking medications as prescribed upon discharge. (4) Supervision of high-risk : COMMENT: LUPIS 09/18/21 PC Erie Dylon (5) : QUALIFIERS: Weeks of gestation: 18 weeks Qualified Code(s): Z3A.18 - 18 weeks gestation of COMMENT: DANIEL [place], labs drawn 04/26 unable to obtain previous labs done at original office (6) Obesity affecting : COMMENT: hga1c checked. (7) Adverse effect of synthetic cannabinoid: COMMENT: still using a bowl a day. discussed risks and side effects, may be causing current symptoms. (8) Elevated liver enzymes: COMMENT: improving lfts this admission. neg hep panel, nl glucose. biliary sludge on RUQ us. likely sec to HG, continue to follow. s/p GI consult will follow up as OP (9) Hyperemesis gravidarum: COMMENT: pepcid, zofran and compazine scheduled, reglan PRN. [facility] home [facility] consult for reglan pump and IVFs. patient has been noncompliant with seeking insurance coverage so unable to obtain optum consult PLAN: pt's cervix is unchanged and remains 1/50/ floating position over 4 hours. This could represent a multip cervix. pt is now status post 3 liters of fluids, compezine x 2, and zofran x 1. She continues to state that her only relief is showering. After disussion with Dr. Karen Flores with [facility] group, the decision is to treat the threatened PTL with Magnesium sulfate bolus, pcn, and steroids now. She has accepted transfer of the patient to their facility as well. Greatly appreciate input and support from [facility]. Charges/Coding Multi Select Codes Visit Charges Office Visit/Consults: 57686 OV L3 Est Urinary/Genital Urinary/Genital CPT Codes: 52172-47 non-stress test Interp
[2021-05-25] MEDS: Potassium Chloride Oral Tablet 20 MEQ 40 MEQ PO (08:23)
[2021-05-25] MEDS: Magnesium Sulfate 4gm/100mL 4 GM/100 ML IV.SOLN. IV (08:31)
[2021-05-25] MEDS: Magnesium Sulfate 4gm/100mL 2 GM/50 ML IV.SOLN. IV (08:50)
[2021-05-25] MEDS: Betamethasone/Betamethasone 30 MG/5 ML Vial 12 MG IM (08:56)
[2021-05-25] MEDS: Magnesium Sulfate 20 GM/500 ML BAG IV (09:01)
== END 2021-05-25 23:59 | disposition short-term general hospital (02) ==
LOC: WPOUT 00:20 → WP 00:21
PROVIDERS: Referring Provider Obstetrics & Gynecology; Visit Provider Obstetrics & Gynecology
DX: O47.02 False labor before 37 completed weeks of gestation, second trimester (principal); F12.188 Cannabis abuse with other cannabis-induced disorder; Z91.19 Patient's noncompliance with other medical treatment and regimen; O26.612 Liver and biliary tract disorders in pregnancy, second trimester; O09.12 Supervision of pregnancy with history of ectopic pregnancy, second trimester; O99.322 Drug use complicating pregnancy, second trimester; K83.8 Other specified diseases of biliary tract; R11.2 Nausea with vomiting, unspecified; Z3A.23 23 weeks gestation of pregnancy; Z91.14 Patient's other noncompliance with medication regimen; O99.212 Obesity complicating pregnancy, second trimester; E66.9 Obesity, unspecified
CPT/HCPCS: 96365; 96366; 96368; 96375 ×2; 96376; 36415; 59050; 80053; 80307; 81001; 84112; 85025; 96372; 99218; J7120; A4216; G0378; J0702; J2405

== ENCOUNTER 2021-05-31 17:10 | Outpatient (CLI) | payer SELFPAY ==
[2021-05-31 17:52] VITALS: BMI 37.5
[2021-05-31 17:58] VITALS: BP 122/65; PULSE 87
[2021-05-31 17:59] VITALS: TEMP 37; O2SAT 97
[2021-05-31] MEDS: Lactated Ringers 1,000 ML 999 ML IV (18:45)
[2021-05-31] MEDS: Ondansetron 4 MG/2 ML Vial IV (18:55)
--- NOTE | 2021-05-31 20:00 | NURSING ---
This RN called Dr. Hua for update on pt at this time. Provider notified pt IV fluid bolus complete and pt reporting feeling better and asking for ice chips and water following zofran administration per Babita corona RN. RN to discharge pt to home at this time and pt to follow up in [place] office.
--- NOTE | 2021-05-31 22:50 | OB.TRI.HP_ITS ---
HPI - General HPI Narrative BILLY WILSON, is a 25 y/o @ 24 weeks 3 F who presents with nausea and vomiting. She is currently a [facility] with [facility]. She has been transported to them a few times and admitted to [facility] several times for hyperemesis and cannabis intoxication. Her current tox screen is negative. she states that the only thing that makes her feel better is being in the shower. She denies severe abdominal pain at this time. Maternal Data Information LUPIS Calculator Estimated Delivery Date Method Current WG Current Estimate 09/18/21 LMP (Certain) 24w 3d PFSH [facility] Medical History (Updated 06/01/21 @ 08:[address] Vivienne Lara DO) Hyperemesis gravidarum Left against medical advice Marijuana abuse Home Medications meclizine 25 mg PO BID PRN #30 tab 04/25/21 [Rx Last Taken 05/31/21 07:00] uhlrczxy-xyj-Vb-FA [] 1 tab PO DAILY 05/25/21 [History Last Taken 05/23/21 09:00] pantoprazole 40 mg tablet,delayed release See Rx Instructions .ROUTE .COMPLEX #60 tab 05/28/21 [Rx Last Taken 05/31/21 07:00] ondansetron HCl [Zofran] 4 mg PO Q8H 05/31/21 [History Last Taken Unknown] promethazine 25 mg PO TID 05/31/21 [History Last Taken Unknown] scopolamine base 1 patch TRANSDERMAL Q3D PRN 05/31/21 [History Last Taken Unknown] Allergy/AdvReac Type Severity Reaction Status Date / Time mushroom Allergy Anaphylaxis Verified 06/01/21 02:43 Family History Mother Cancer Grandmother Cancer Social History Smoking Status: Never smoker alcohol intake: never substance use type: does not use and marijuana caffeine: No what type of physical activity do you participate in: none seatbelt use: always do you feel safe at home: Yes additional social history: Dylon History 2 Elective abortions Hx Para 1 Spontaneous abortions Hx # Term Pregnancies Ectopic pregnancies Hx # Pregnancies Multiple births # of living children Past Pregnancies Del. Date Name GA/Weeks Outcome Route Bth Weight [facility]17 Hanna 39 live - full term Delivery Date: 02/28/17 hyperemesis gravidarum Janay Suh Visit Details Expected Delivery Route/Plan Labor Preferences- CB/BF classes: [] labor support person: [] labor intervention preferences: [] pain management options preferred: [] cut cord/dad catch: [] : [] PP control planned: [] discussed possible routes of delivery and associated risks: [] special requests: [] Plans Covid status: [] Flu vaccine: [] Tdap vaccine: [] Rhogam: [] LARC form signed: [] Problem list reviewed and updated with the most current plan of care details and appropriate orders placed. Relevant counseling for the gestational age provided. Continue routine care and follow up unless otherwise noted in visit notes/problem list details OB Flowsheet Initial Weight: Not Recorded Date -?-?-?-?-?-?-?-?-?-?-?-?- EGA Weight BP Urine Prot -?-?-?-?-?-?-?-?-?-?-?--?- Glucose FHR FuHt Pres Dilation -?-?-?-?-?-?-?-?-?-?-?-?- Effaced St Visit Note 03/21/21 -?-?-?-?-?-?-?-?-?-?-?-?- 14w 1d 220 lb 122/84 -?-?-?-?-?-?-?-?-?-?-?-?- -?-?-?-?-?-?-?-?-?-?-?-?- Direct admit to labor and delivery for IV fluids plan Optum consult 03/25/21 -?-?-?-?-?-?-?-?-?-?-?-?- 15w 0d 218 lb 212 lb 11.937 oz 212 lb 11.937 oz 120/84 121/86 115/98 115/98 141/80 123/79 118/82 131/82 125/77 116/68 96/53 109/62 -?-?-?-?-?-?-?-?-?-?-?-?- -?-?-?-?-?-?-?-?-?-?-?-?- 04/14/21 -?-?-?-?-?-?-?-?-?-?-?-?- 17w 5d 220 lb 211 lb 13.828 oz 142/91 142/91 148/84 131/69 122/69 126/70 112/66 125/73 30 mg/dl (Negative) H -?-?-?-?-?-?-?-?-?-?-?-?- 136 -?-?-?-?-?-?-?-?-?-?-?-?- 04/19/21 -?-?-?-?-?-?-?-?-?-?-?-?- 18w 2d 213 lb 130/80 3+ -?-?-?-?-?-?-?-?-?-?-?-?- Negative 150 -?-?-?-?-?-?-?-?-?-?-?-?- SM- no emesis to day, pain improved last night spontaneously. declining IVFs at this time, [facility]um is processing her insurance. 04/22/21 -?-?-?-?-?-?-?-?-?-?-?-?- 19w 1d 210 lb 8.663 oz 116/ 75 119/73 106/64 114/74 123/70 137/77 123/77 133/77 111/58 104/55 104/60 117/66 108/68 -?-?-?-?-?-?-?-?-?-?-?-?- -?-?-?-?-?-?-?-?-?-?-?-?- 04/26/21 -?-?-?-?-?-?-?-?-?-?-?-?- 19w 2d 206 lb 5.643 oz 206 lb 9.17 oz 132/94 146/98 144/95 124/77 Cancelled -?-?-?-?-?-?-?-?-?-?-?-?- -?-?-?-?-?-?-?-?-?-?-?-?- 05/25/21 -?-?-?-?-?-?-?-?-?-?-?-?- 23w 3d 217 lb 128/82 134/80 120/67 123/71 123/71 131/64 104/57 104/57 Negative mg/dl (Nega tive) -?-?-?-?-?-?-?-?-?-?-?-?- -?-?-?-?-?-?-?-?-?-?-?-?- 05/31/21 -?-?-?-?-?-?-?-?-?-?-?-?- 24w 2d 212 lb 122/65 -?-?-?-?-?-?-?-?-?-?-?-?- -?-?-?-?-?-?-?-?-?-?-?-?- ROS Constitutional Constitutional: Reports systems reviewed and no addt'l complaints, except as documented Gastrointestinal Gastrointestinal: Denies bloating, constipation, cramping, diarrhea, nausea or vomiting Genitourinary Genitourinary: Reports other Details: Denies vaginal odor, vaginal bleeding, or vaginal discharge ; Denies difficulty urinating or flank pain Physical Exam HEENT normocephalic Resp normal respiratory effort and normal air movement no CVA tenderness Extremity normal to inspection General Extremity: edema bilateral (trace ) NST FHR Rate Baby A Baseline: 140 Decelerations:: None NST Reactive:: Yes FHR Category:: Category I Assessment & Plan (1) Non compliance with medical treatment: COMMENT: patient admitted to hospital for HG and then didn't return office calls or fu in office for 3 weeks. patient states she was in [place]. upon readmission was not taking medications as prescribed upon discharge. (2) Supervision of high-risk : COMMENT: LUPIS 09/18/21 PC [place] Dylon (3) : QUALIFIERS: Weeks of gestation: 18 weeks Qualified Code(s): Z3A.18 - 18 weeks gestation of COMMENT: [facility], labs drawn 04/26 unable to obtain previous labs done at original office (4) Obesity affecting : COMMENT: hga1c checked. (5) Adverse effect of synthetic cannabinoid: COMMENT: still using a bowl a day. discussed risks and side effects, may be causing current symptoms. (6) Hyperemesis gravidarum: (7) Left against medical advice: COMMENT: termination from practice letter sent on 05/09/21 by certified mail. Pt is aware. (8) Abdominal pain during in second trimester: COMMENT: questionable narcotic seeking, nl ct scan, RUQ scan biliary sludge, ? sec to hyperemesis or cannabis. fibrinogen, cbc, cmp, urine culture and ua. transport to [facility] for evaluation (9) Cannabis hyperemesis syndrome concurrent with and due to cannabis abuse: COMMENT: s/p GI consult, treated with haldol initially, now on PPI and sucralfate. recommend addiction medicine consult PLAN: pt felt better after 1 liter of fluids and IV zofran. she is requesting to go home Charges/Coding Multi Select Codes Visit Charges Office Visit/Consults: 24815 OV L3 Est Urinary/Genital Urinary/Genital CPT Codes: 82326-00 non-stress test Interp
== END 2021-05-31 23:59 | disposition home or self-care (01) ==
LOC: WPOUT 17:18 → WP 17:19
PROVIDERS: Visit Provider Obstetrics & Gynecology
DX: O99.322 Drug use complicating pregnancy, second trimester (principal); R11.2 Nausea with vomiting, unspecified; F12.10 Cannabis abuse, uncomplicated; O99.212 Obesity complicating pregnancy, second trimester; E66.9 Obesity, unspecified; O09.12 Supervision of pregnancy with history of ectopic pregnancy, second trimester; O26.892 Other specified pregnancy related conditions, second trimester; R10.11 Right upper quadrant pain; Z91.19 Patient's noncompliance with other medical treatment and regimen; Z3A.24 24 weeks gestation of pregnancy; Z53.29 Procedure and treatment not carried out because of patient's decision for other reasons
CPT/HCPCS: 96374; 96361; 59025; 59050; 99218; J7120; G0378; J2405

== ENCOUNTER 2021-06-01 02:17 | Outpatient (CLI) | payer SELFPAY ==
[2021-06-01] VITALS (17 sets, daily range): BP systolic 122–150; BP diastolic 66–101; PULSE 76–120; TEMP 36.1–36.8; O2SAT 91–100; BMI 37.5
[2021-06-01] MEDS: Lactated Ringers 1,000 ML 999 ML IV (02:35)
[2021-06-01 02:51] LABS: Absolute Neutrophil Count 10.3 X10^3/uL (2.0-7.7); Basophil# 0.02 X10^3/uL; Basophil% 0.2 % (0-1); Eosinophil# 0.04 X10^3/uL; Eosinophils% 0.3 % (0-5); Hematocrit 31.3 % (37-47); Hemoglobin 10.5 g/dL (12.0-15.0); Lymphocyte % 16.5 % (19-41); Mean Corp Hgb Conc 33.5 g/dL (32-36); Mean Corpuscular Hgb 31.4 pg (27.0-32.0); Mean Corpuscular Volume 93.7 fL (81-99); Mean Platelet Vol. 9.7 fl (6.2-12.0); Monocyte# 0.68 X10^3/uL; Monocyte% 5.1 % (0-10); NRBC Flagged by Analyzer 0 % (0-5); Neutrophil % 77.3 % (47-70); Platelet Count 335 K/mm3 (150-450); RBC Distribution Width CV 13.4 % (11.6-14.6); RBC Distribution Width SD 45.6 fl (35.1-43.9); Red Blood Count 3.34 M/mm3 (4.2-5.4); White Blood Count 13.3 K/mm3 (4.4-11.0)
[2021-06-01] MEDS: Ondansetron 4 MG/2 ML Vial IV ×2 (03:02→05:48)
[2021-06-01 03:07] LABS: ALB/GLOB Ratio 0.7 RATIO (0.9-2.4); AST(SGOT) 15 U/L (15-37); Alanine Aminotransfer ALT/SGPT 32 U/L (13-56); Albumin, Serum 2.5 g/dL (3.2-5.0); Alkaline Phosphatase 100 U/L (45-117); Anion Gap 10 (5-15); BUN 9 mg/dL (7-18); BUN/Creat Ratio 14.7 RATIO (10-20); Calcium,Total 8.5 mg/dL (8.5-10.1); Chloride 104 mmol/L (98-107); Creatinine, Serum 0.61 mg/dL (0.55-1.02); EST Glomerular Filtration Rate 125 mL/min (>60); Est Glom Filt Rate - Afr Amer 152 mL/min (>60); Estimated Creatinine Clearance 116.62 ml/min; Globulin 3.8 g/dL (2.2-4.2); Glucose 99 mg/dL (74-106); Potassium 3.5 mmol/L (3.5-5.1); Protein, Total 6.3 g/dL (6.4-8.2); Sodium Level 136 mmol/L (136-145)
[2021-06-01 03:09] LABS: ROM Internal Control Test YES-OK TO RESULT pt. (Internal QC); ROM Patient Test Negative (Negative)
[2021-06-01 03:25] LABS: Fetal Fibronectin Negative
[2021-06-01] MEDS: Lactated Ringers 1,000 ML 125 ML IV (03:42)
[2021-06-01 03:53] LABS: Mucous, Urine 0 SEEN /hpf (<or=2+); Red Blood Cells-Urine 0 SEEN /hpf (0-5)
[2021-06-01 04:01] LABS: Color, Urine Yellow (Yellow); Glucose, Dipstick Normal (Normal); Leukocyte Esterase-Dipstick 500 /ul (Negative); Nitrite-Dipstick Negative (Negative); Occult Blood-Urine Negative /ul (Negative); Protein-Dipstick 15 mg/dl (Negative); Specific Gravity, Urine 1.015 (1.002-1.030); Urine Bilirubin Dipstick Negative (Negative); Urine Clarity Sl. Cloudy (Clear); Urine Urobilinogen Normal (Normal)
[2021-06-01 04:02] LABS: Ketone-Dipstick 150 mg/dl (Negative)
[2021-06-01 04:08] LABS: Amorphous Sediment 4+; Bacteria 2+ /hpf (None Seen); Squamous Epithelial Cells - UA 10-25 SEEN /hpf (5-10); White Blood Cells 25-50 SEEN /hpf (0-5)
[2021-06-01 05:01] LABS: Amphetamine Urine VISTA NEGATIVE (<1000 ng/mL); Barbiturate Urine VISTA NEGATIVE (< 200 ng/mL); Benzodiazepine Urine VISTA NEGATIVE (< 200 ng/mL); Cocaine Urine VISTA NEGATIVE (< 300 ng/mL); Ecstacy Urine VISTA NEGATIVE (< 500 ng/mL); Methadone Urine VISTA NEGATIVE (< 300 ng/mL); PCP Urine VISTA NEGATIVE (< 25 ng/mL); THC Urine VISTA NEGATIVE (< 50 ng/mL); Vista UDS pH Range 7
[2021-06-01] MEDS: Cefazolin 2 GM in 0.9% Normal Saline 100 ML IV (05:51)
--- NOTE | 2021-06-01 07:35 | NURSING ---
Report given to Marcio Adams RN and Ben Mccrary RN who are assuming care of pt at this time
[2021-06-01] MEDS: Dextrose 5%-Lactated Ringers 1,000 ML 125 ML IV (07:57)
--- NOTE | 2021-06-01 08:04 | NURSING ---
Dr. Lara is assuming care at this time. She is to notify [facility]. She has cancelled the CT scan. She plans to transport patient to [place] and will be to unit shortly.
[2021-06-01] MEDS: proMETHazine 25 MG/ML Syringe IM (08:50)
[2021-06-01] MEDS: Acetaminophen 650 MG Suppository RC (09:09)
--- NOTE | 2021-06-01 09:25 | OB.TRI.HP_ITS ---
HPI - General HPI Narrative BILLY WILSON, is a 25 y/o @ 24 weeks who presents to L&D via ambulance due to severe abdominal cramping. She was initially admitted under Dr. Espitia for no care, however she is within her 30 days of discharge from our practice for non-compliance. Care was taken over by myself and the patient states that the pain is consistent with prior admissions. She feels like the baby is coming and she is vomiting worse than she was the evening prior. (was seen in Triage last night for vomiting). She states that the [facility] has taken over her care and she has an appt with them next week. In speaking with [facility] at [place], the instructions are to transport her to [facility] for further evaluation due to her ongoing severe abdominal pain and threatened labor. Nurses have communicated to me that she was immediately examined when she arrived due to her complaint that the baby is coming, and her cx remains internally closed with 1 cm dilated in the external os. Billy is willing to accept the [facility] recommendations and be transported to [facility] via ambulance. Maternal Data Information LUPIS Calculator Estimated Delivery Date Method Current WG Current Estimate 09/18/21 LMP (Certain) 24w 6d PFSH [facility] Medical History (Updated 06/01/21 @ 08:[address] Vivienne Lara, ) Hyperemesis gravidarum Left against medical advice Marijuana abuse Home Medications meclizine 25 mg PO BID PRN #30 tab 04/25/21 [Rx Last Taken 05/31/21 07:00] yzeuqduk-uzb-Qg-FA [] 1 tab PO DAILY 05/25/21 [History Last Taken 05/23/21 09:00] pantoprazole 40 mg tablet,delayed release See Rx Instructions .ROUTE .COMPLEX #60 tab 05/28/21 [Rx Last Taken 05/31/21 07:00] ondansetron HCl [Zofran] 4 mg PO Q8H 05/31/21 [History Last Taken Unknown] promethazine 25 mg PO TID 05/31/21 [History Last Taken Unknown] scopolamine base 1 patch TRANSDERMAL Q3D PRN 05/31/21 [History Last Taken Unknown] Allergy/AdvReac Type Severity Reaction Status Date / Time mushroom Allergy Anaphylaxis Verified 06/01/21 02:43 Family History Mother Cancer Grandmother Cancer Social History Smoking Status: Never smoker alcohol intake: never substance use type: does not use and marijuana caffeine: No what type of physical activity do you participate in: none seatbelt use: always do you feel safe at home: Yes additional social history: Dylon History 2 Elective abortions Hx Para 1 Spontaneous abortions Hx # Term Pregnancies Ectopic pregnancies Hx # Pregnancies Multiple births # of living children Past Pregnancies Del. Date Name GA/Weeks Outcome Route Bth Weight Infant Gen Labor Lgth Anesthesia Del Locatn Provider FOB 02/28/17 Hanna 39 live - full term Delivery Date: 02/28/17 hyperemesis gravidarum Janay Suh Visit Details Expected Delivery Route/Plan Labor Preferences- CB/BF classes: [] labor support person: [] labor intervention preferences: [] pain management options preferred: [] cut cord/dad catch: [] : [] PP control planned: [] discussed possible routes of delivery and associated risks: [] special requests: [] Plans Covid status: [] Flu vaccine: [] Tdap vaccine: [] Rhogam: [] LARC form signed: [] Problem list reviewed and updated with the most current plan of care details and appropriate orders placed. Relevant counseling for the gestational age provided. Continue routine care and follow up unless otherwise noted in visit notes/problem list details OB Flowsheet Initial Weight: Not Recorded Date -?-?-?-?-?-?-?-?-?-?-?-?- EGA Weight BP Urine Prot -?-?-?-?-?-?-?-?-?-?-?-?- Glucose FHR FuHt Pres Dilation -?-?-?-?-?-?-?-?-?-?-?-?- Effaced St Visit Note 03/21/21 -?-?-?-?-?-?-?-?-?-?-?-?- 14w 1d 220 lb 122/84 -?-?-?-?-?-?-?-?-?-?-?-?- -?-?-?-?-?-?-?-?-?-?-?-?- Direct admit to labor and delivery for IV fluids plan Optum consult 03/25/21 -?-?-?-?-?-?-?-?-?-?-?-?- 15w 0d 218 lb 212 lb 11.937 oz 212 lb 11.937 oz 120/84 121/86 115/98 115/98 141/80 123/79 118/82 131/82 125/77 116/68 96/53 109/62 -?-?-?-?-?-?-?-?-?-?-?-?- -?-?-?-?-?-?-?-?-?-?-?-?- 04/14/21 -?-?-?-?-?-?-?-?-?-?-?-?- 17w 5d 220 lb 211 lb 13.828 oz 142/91 142/91 148/84 131/69 122/69 126/70 112/66 125/73 30 mg/dl (Negative) H -?-?-?-?-?-?-?-?-?-?-?-?- 136 -?-?-?-?-?-?-?-?-?-?-?-?- 04/19/21 -?-?-?-?-?-?-?-?-?-?-?-?- 18w 2d 213 lb 130/80 3+ -?-?-?-?-?-?-?-?-?-?-?-?- Negative 150 -?-?-?-?-?-?-?-?-?-?-?-?- SM- no emesis to day, pain improved last night spontaneously. declining IVFs at this time, optum is processing her insurance. 04/22/21 -?-?-?-?-?-?-?-?-?-?-?-?- 19w 1d 210 lb 8.663 oz 116/ 75 119/73 106/64 114/74 123/70 137/77 123/77 133/77 111/58 104/55 104/60 117/66 108/68 -?-?-?-?-?-?-?-?-?-?-?-?- -?-?-?-?-?-?-?-?-?-?-?-?- 04/26/21 -?-?-?-?-?-?-?-?-?-?-?-?- 19w 2d 206 lb 5.643 oz 206 lb 9.17 oz 132/94 146/98 144/95 124/77 Cancelled -?-?-?-?-?-?-?-?-?-?-?-?- -?-?-?-?-?-?-?-?-?-?-?-?- 05/25/21 -?-?-?-?-?-?-?-?-?-?-?-?- 23w 3d 217 lb 128/82 134/80 120/67 123/71 123/71 131/64 104/57 104/57 Negative mg/dl (Nega tive) -?-?-?-?-?-?-?-?-?-?-?-?- -?-?-?-?-?-?-?-?-?-?-?-?- 05/31/21 -?-?-?-?-?-?-?-?-?-?-?-?- 24w 2d 212 lb 122/65 -?-?-?-?-?-?--?-?-?-?-?-?- -?-?-?-?-?-?-?-?-?-?-?-?- 06/01/21 -?-?-?-?-?-?-?-?-?-?-?-?- 24w 3d 212 lb 122/66 142/89 150/101 145/86 15 mg/dl (Negative) H -?-?-?-?-?-?-?-?-?-?-?-?- -?-?-?-?-?-?-?-?-?-?-?-?- ROS Constitutional Constitutional: Reports systems reviewed and no addt'l complaints, except as documented Gastrointestinal Gastrointestinal: Reports other Details: Please see HPI. pt denies vomiting blood. She is actively vomiting during exam. ; Denies bloating, constipation or diarrhea Genitourinary Genitourinary: Reports other Details: Denies vaginal odor, vaginal bleeding, or vaginal discharge ; Denies difficulty urinating or flank pain Physical Exam HEENT normocephalic Resp normal respiratory effort and normal air movement no CVA tenderness Extremity normal to inspection General Extremity: edema bilateral (trace ) NST FHR Rate Baby A Baseline: 140 Variability:: Moderate Decelerations:: None NST Reactive:: Yes FHR Category:: Category I Uterine Activity:: irritability Assessment & Plan (1) Hyperemesis gravidarum: (2) Left against medical advice: COMMENT: termination from practice letter sent on 05/09/21 by certified mail. Pt is aware. (3) Abdominal pain during in second trimester: COMMENT: questionable narcotic seeking, nl ct scan, RUQ scan biliary sludge, ? sec to hyperemesis or cannabis. fibrinogen, cbc, cmp, urine culture and ua. transport to [facility] for evaluation (4) Cannabis hyperemesis syndrome concurrent with and due to cannabis abuse: COMMENT: s/p GI consult, treated with haldol initially, now on PPI and sucralfate. recommend addiction medicine consult (5) Non compliance with medical treatment: COMMENT: patient admitted to hospital for HG and then didn't return office calls or fu in office for 3 weeks. patient states she was in [place]. upon readmission was not taking medications as prescribed upon discharge. (6) Supervision of high-risk : COMMENT: LUPIS 09/18/21 CAMRON Ferreira Dylon (7) Obesity affecting : COMMENT: hga1c checked. (8) Adverse effect of synthetic cannabinoid: COMMENT: still using a bowl a day. discussed risks and side effects, may be causing current symptoms. (9) : QUALIFIERS: Weeks of gestation: 18 weeks Qualified Code(s): Z3A.18 - 18 weeks gestation of COMMENT: DANIEL [place], labs drawn 04/26 unable to obtain previous labs done at original office (10) Elevated liver enzymes: COMMENT: improving lfts this admission. neg hep panel, nl glucose. biliary sludge on RUQ us. likely sec to HG, continue to follow. s/p GI consult will follow up as OP (11) Hyperemesis gravidarum: COMMENT: pepcid, zofran and compazine scheduled, reglan PRN. [facility] home [facility] consult for reglan pump and IVFs. patient has been noncompliant with seeking insurance coverage so unable to obtain [facility] consult PLAN: transport to [facility] via ambulance. I have discussed her case with Drs. Horton and Mark. 4 mg IV zofran now. Charges/Coding Multi Select Codes Visit Charges Office Visit/Consults: 18614 OV L3 Est Urinary/Genital Urinary/Genital CPT Codes: 30817-96 non-stress test Interp
--- NOTE | 2021-06-01 09:42 | OB.TRI.HP_ITS ---
HPI - General HPI Narrative BILLY WILSON, is a 25 F who presents by squad at 24 weeks gestation with cramping and lower abdominal pain. She was seen on labor and delivery the previous evening for a similar issue and apparently multiple times during her for this issue as well. care has been remarkable for severe nausea and vomiting during minimally treated with Zofran and scopolamine patch. Until this point patient has been seen by [facility]. She has been released from their practice and was to follow-up with maternal- medicine. She has not done this to this point. On labor and delivery electrolytes and CBC were normal with a slightly elevated white count to about 13. Urine analysis showed 2+ bacteria. Toxicology screen was negative. Maternal Data Information LUPIS Calculator Estimated Delivery Date Method Current WG Current Estimate 09/18/21 LMP (Certain) 24w 3d PFSH PFSH Medical History (Updated 06/01/21 @ 08:[address] Vivienne Lara DO) Hyperemesis gravidarum Left against medical advice Marijuana abuse Home Medications meclizine 25 mg PO BID PRN #30 tab 04/25/21 [Rx Last Taken 05/31/21 07:00] [id number]-wkr-[id number]-FA [] 1 tab PO DAILY 05/25/21 [History Last Taken 05/23/21 09:00] pantoprazole 40 mg tablet,delayed release See Rx Instructions .ROUTE .COMPLEX #60 tab 05/28/21 [Rx Last Taken 05/31/21 07:00] ondansetron HCl [Zofran] 4 mg PO Q8H 05/31/21 [History Last Taken Unknown] promethazine 25 mg PO TID 05/31/21 [History Last Taken Unknown] scopolamine base 1 patch TRANSDERMAL Q3D PRN 05/31/21 [History Last Taken Unknown] Allergy/AdvReac Type Severity Reaction Status Date / Time mushroom Allergy Anaphylaxis Verified 06/01/21 02:43 Family History Mother Cancer Grandmother Cancer Social History Smoking Status: Never smoker alcohol intake: never substance use type: does not use and marijuana caffeine: No what type of physical activity do you participate in: none seatbelt use: always do you feel safe at home: Yes additional social history: [place] History 2 Elective abortions Hx Para 1 Spontaneous abortions Hx # Term Pregnancies Ectopic pregnancies Hx # Pregnancies Multiple births # of living children Past Pregnancies Del. Date Name GA/Weeks Outcome Route Bth Weight Gen Labor Lgth Anesthesia Del Percyatn Provider FOB 02/28/17 Hanna 39 live - full term Delivery Date: 02/28/17 hyperemesis gravidarum Janay Suh Visit Details Expected Delivery Route/Plan Labor Preferences- CB/BF classes: [] labor support person: [] labor intervention preferences: [] pain management options preferred: [] cut cord/dad catch: [] : [] PP control planned: [] discussed possible routes of delivery and associated risks: [] special requests: [] Plans Covid status: [] Flu vaccine: [] Tdap vaccine: [] Rhogam: [] LARC form signed: [] Problem list reviewed and updated with the most current plan of care details and appropriate orders placed. Relevant counseling for the gestational age provided. Continue routine care and follow up unless otherwise noted in visit notes/problem list details OB Flowsheet Initial Weight: Not Recorded Date -?-?-?-?-?-?-?-?-?-?-?-?- EGA Weight BP Urine Prot -?-?-?-?-?-?-?-?-?-?-?-?- Glucose FHR FuHt Pres Dilation -?-?-?-?-?-?-?-?-?-?-?-?- Effaced St Visit Note 03/21/21 -?-?-?-?-?-?-?-?-?-?-?-?- 14w 1d 220 lb 122/84 -?-?-?-?-?-?-?-?-?-?-?-?- -?-?-?-?-?-?-?-?-?-?-?-?- Direct admit to labor and delivery for IV fluids plan [employer] consult 03/25/21 -?-?-?-?-?-?-?-?-?-?-?-?- 15w 0d 218 lb 212 lb 11.937 oz 212 lb 11.937 oz 120/84 121/86 115/98 115/98 141/80 123/79 118/82 131/82 125/77 116/68 96/53 109/62 -?-?-?-?-?-?-?-?-?-?-?-?- -?-?-?-?-?-?-?-?-?-?-?-?- 04/14/21 -?-?-?-?-?-?-?-?-?-?-?-?- 17w 5d 220 lb 211 lb 13.828 oz 142/91 142/91 148/84 131/69 122/69 126/70 112/66 125/73 30 mg/dl (Negative) H -?-?-?-?-?-?-?-?-?-?-?-?- 136 -?-?-?-?-?-?-?-?-?-?-?-?- 04/19/21 -?-?-?-?-?-?-?-?-?-?-?-?- 18w 2d 213 lb 130/80 3+ -?-?-?-?-?-?-?-?-?-?-?-?- Negative 150 -?-?-?-?-?-?-?-?-?-?-?-?- SM- no emesis to day, pain improved last night spontaneously. declining IVFs at this time, [employer] is processing her insurance. 04/22/21 -?-?-?-?-?-?-?--?-?-?-?-?- 19w 1d 210 lb 8.663 oz 116/ 75 119/73 106/64 114/74 123/70 137/77 123/77 133/77 111/58 104/55 104/60 117/66 108/68 -?-?-?-?-?-?-?-?-?-?-?-?- -?-?-?-?-?-?-?-?-?-?-?-?- 04/26/21 -?-?-?-?-?-?-?-?-?-?-?-?- 19w 2d 206 lb 5.643 oz 206 lb 9.17 oz 132/94 146/98 144/95 124/77 Cancelled -?-?-?-?-?-?-?-?-?-?-?-?- -?-?-?-?-?-?-?-?-?-?-?-?- 05/25/21 -?-?-?-?-?-?-?-?-?-?-?-?- 23w 3d 217 lb 128/82 134/80 120/67 123/71 123/71 131/64 104/57 104/57 Negative mg/dl (Nega tive) -?-?-?-?-?-?-?-?-?-?-?-?- -?-?-?-?-?-?-?-?-?-?-?-?- 05/31/21 -?-?-?-?-?-?-?-?-?-?-?-?- 24w 2d 212 lb 122/65 -?-?-?-?-?-?-?-?-?-?-?-?- -?-?-?-?-?-?-?-?-?-?-?-?- 06/01/21 -?-?-?-?-?-?-?-?-?-?-?-?- 24w 3d 212 lb 122/66 142/89 150/101 145/86 15 mg/dl (Negative) H -?-?-?-?-?-?-?-?-?-?-?-?- -?-?-?-?-?-?-?-?-?-?-?-?- Assessment & Plan (1) Hyperemesis gravidarum: PLAN: 24-week intrauterine with severe hyperemesis gravidarum. Urine sent and showed 2+ bacteria so Ancef 2 g IV was given overnight. Patient continues to have severe hyperemesis gravidarum despite IV fluid and IV Zofran overnight. Some tenderness especially in the right lower quadrant consistent with round ligament pain but cannot rule out appendicitis. With mildly elevated white count a CT scan was ordered to rule out appendicitis. However Christel (Dr. Sotelo) decided to resume care of the patient this morning after I saw the patient and Dr. Sotelo plans to send the patient to maternal- medicine in [place]. At this point maternal- medicine does not desire that she received a CT scan as she has apparently had a previous CT scan in and they do not wish her to have additional radiation with this . I will sign off on the patient for now.
--- NOTE | 2021-06-13 09:00 | NURSING ---
added stop time for d5 lr for charging purposes
--- NOTE | 2021-06-22 19:04 | NURSING ---
Stop time entered by director for charging purposes
== END 2021-06-01 23:59 | disposition short-term general hospital (02) ==
LOC: WPOUT 02:20 → WP 02:21
PROVIDERS: Obstetrics & Gynecology; Referring Provider Obstetrics & Gynecology; Visit Provider Obstetrics & Gynecology
DX: O47.02 False labor before 37 completed weeks of gestation, second trimester (principal); O26.892 Other specified pregnancy related conditions, second trimester; O99.891 Other specified diseases and conditions complicating pregnancy; R10.31 Right lower quadrant pain; R10.2 Pelvic and perineal pain; O99.322 Drug use complicating pregnancy, second trimester; R11.2 Nausea with vomiting, unspecified; F12.10 Cannabis abuse, uncomplicated; O99.212 Obesity complicating pregnancy, second trimester; Z3A.18 18 weeks gestation of pregnancy; Z91.14 Patient's other noncompliance with medication regimen; Z91.19 Patient's noncompliance with other medical treatment and regimen
CPT/HCPCS: 96365; 96375 ×2; 96376; 96361 ×3; 36415; 59050; 80053; 80307; 81001; 82731; 84112; 85025; 87086; 87088; 96372; 99218; J7120; G0378; J2405